=== PATIENT | female | born 1980 | race Caucasian/White ===

== ENCOUNTER 2017-10-10 12:22 | Inpatient (IN) | payer MEDICAID, OTHER ==
[~2017-10-10] VITALS: Ht 165.1 cm; Wt 61.6 kg
[2017-10-10] MEDS ORDERED: SODIUM CHLORIDE 0.9% 1,000 ML IVB ONE (12:42)
[2017-10-10] MEDS ORDERED: PANTOPRAZOLE 40 MG/10 ML VIAL IV STA (12:42)
[2017-10-10] MEDS ORDERED: ONDANSETRON HCL 4 MG/2 ML VIAL IV ONE (12:45)
[2017-10-10] MEDS ORDERED: MORPHINE SULF INJ 2 MG/ML SYRINGE 1ML IV ONE (12:45)
[2017-10-10 12:57] LABS: Basophils # (auto) 0.1 uL; Basophils % (auto) 0.4 % (0.0-2.0); Eosinophils # (auto) 0 uL; Mean Corpuscular Hgb Conc. 33.7 g/dL (32.0-36.0)
[2017-10-10 12:59] LABS: Hemoglobin 15.1 g/dL (12.2-16.2); Lymphocytes # (auto) 0.8 uL; Mean Corpuscular Hemoglobin 35.6 pg (28.0-32.0); Mean Corpuscular Volume 105.7 fL (80.0-100.0); Monocytes # (auto) 1.2 uL; Monocytes % (auto) 5.8 % (0.0-12.0); Neutrophils # (auto) 18.6 uL; Neutrophils % (auto) 89.8 % (37.0-80.0); Platelet Count (auto) 205 10^3/uL (140-450); Red Blood Cells 4.26 10^6/uL (4.0-5.20); Red Cell Distribution Width 14.4 % (11.8-14.3); White Blood Cell 20.7 10^3/uL (4.4-10.8)
[2017-10-10 13:13] LABS: INR 1.07 (0.9-1.15); Partial Thromboplastin Time 33.1 sec (23.78-33.04); Prothrombin Time 11.4 sec (9.27-12.13)
[2017-10-10 13:27] LABS: Albumin 4.5 g/dL (3.4-5.0); BUN/Creatinine Ratio 15.6; Bilirubin, Total 2.7 mg/dL (0.2-1.0); Calcium 9.5 mg/dL (8.5-10.1); Potassium 3.8 mmol/L (3.5-5.1); Total Protein 10.1 g/dL (6.4-8.2)
[2017-10-10 13:48] LABS: Urine Bacteria NONE SEEN /hpf (None Seen); Urine Blood 3+ /uL (Negative); Urine Hyaline Cast MANY /lpf (0 - 2); Urine Mucus FEW (None Seen); Urine Specific Gravity 1.029 (1.001-1.035); Urine WBC 3 /hpf (0 - 5)
[2017-10-10 13:58] LABS: Blood Alcohol < 3.0 mg/dL (0-5); Lipase 3625 U/L (73-393)
[2017-10-10] MEDS ORDERED: MORPHINE SULFATE 4 MG/ML SYR/VIAL IV ONE (15:00)
[2017-10-10] MEDS ORDERED: PANTOPRAZOLE 40 MG/10 ML VIAL IV ONE (16:30)
[2017-10-10] MEDS ORDERED: THIAMINE 100mg/ml INJ (200mg/2ml VIAL) IV ONE (16:30)
[2017-10-10] MEDS ORDERED: LEVOFLOXACIN 500MG 100 ML IV ONE (17:00)
[2017-10-10] MEDS: SODIUM CHLORIDE 0.9% 1,000 ML IV SCH (17:00)
[2017-10-10] MEDS ORDERED: FOLIC ACID 1 MG in D5W 5% 50 ML INJ ONE (17:00)
[2017-10-10 17:06] LABS: Alcohol, Urine < 3.0 mg/dL (0-5); Amphetamine Screen, Urine NEGATIVE (NEGATIVE); Barbiturate Scree,Urine NEGATIVE (NEGATIVE); Benzodiazephine Screen, Urine NEGATIVE (NEGATIVE); Cannabinoid Screen, Urine NEGATIVE (NEGATIVE); Cocaine Screen, Urine NEGATIVE (NEGATIVE); Opiate Scree,Urine NEGATIVE (NEGATIVE); Phencyclidine Screen, Urine NEGATIVE (NEGATIVE)
[2017-10-10] MEDS: ONDANSETRON HCL 4 MG/2 ML VIAL IV PRN (17:26)
[2017-10-10] MEDS: MORPHINE SULF INJ 2 MG/ML SYRINGE 1ML IV PRN ×2 (17:26→21:30)
[2017-10-10 18:25] LABS: Hepatitis B Surface Antigen Negative (Negative)
[2017-10-10 18:42] LABS: Hepatitis A Ab IgM Negative; Hepatitis B Core IgM Negative
[2017-10-10] MEDS: traMADol HCL 50 MG TAB PO PRN (19:07)
[2017-10-10 20:04] LABS: Hepatitis C Antibody Negative (Negative)
[2017-10-10 20:30] VITALS: BP 153/105
[2017-10-10 22:13] VITALS: BP_SYST 156; BP_SYST 168; BP_DIAS 105; BP_DIAS 98
[2017-10-11] MEDS: SODIUM CHLORIDE 0.9% 1,000 ML IV SCH ×2 (00:30→10:10)
[2017-10-11] MEDS: MORPHINE SULF INJ 2 MG/ML SYRINGE 1ML IV PRN ×5 (01:41→23:05)
[2017-10-11] MEDS ORDERED: MORPHINE SULF INJ 2 MG/ML SYRINGE 1ML IV ONE (02:15)
[2017-10-11 04:43] VITALS: BP_SYST 149; BP_SYST 150; BP_DIAS 107; BP_DIAS 99
[2017-10-11 06:54] LABS: Eosinophils # (auto) 0 uL; Eosinophils % (auto) 0.1 % (0.0-7.0); Monocytes # (auto) 0.9 uL
[2017-10-11 06:56] LABS: Basophils # (auto) 0.1 uL; Basophils % (auto) 0.3 % (0.0-2.0); Hemoglobin 13.5 g/dL (12.2-16.2); Lymphocytes # (auto) 0.7 uL; Lymphocytes % (auto) 3.7 % (10.0-50.0); Mean Corpuscular Hemoglobin 36.5 pg (28.0-32.0); Mean Corpuscular Hgb Conc. 34.8 g/dL (32.0-36.0); Monocytes % (auto) 4.9 % (0.0-12.0); Neutrophils # (auto) 16.5 uL; Platelet Count (auto) 121 10^3/uL (140-450); Red Blood Cells 3.71 10^6/uL (4.0-5.20); Red Cell Distribution Width 14.5 % (11.8-14.3); White Blood Cell 18.1 10^3/uL (4.4-10.8)
[2017-10-11 07:14] LABS: Albumin 3.3 g/dL (3.4-5.0); BUN/Creatinine Ratio 10.6; Bilirubin, Total 2.1 mg/dL (0.2-1.0); Calcium 8.9 mg/dL (8.5-10.1); Potassium 3.3 mmol/L (3.5-5.1); Total Protein 7.9 g/dL (6.4-8.2)
[2017-10-11 07:34] VITALS: BP 154/100
[2017-10-11] MEDS: FOLIC ACID 1 MG in D5W 5% 50 ML IV SCH ×2 (10:00→13:47)
[2017-10-11] MEDS ORDERED: LEVOFLOXACIN 500MG 100 ML IV SCH (10:00)
[2017-10-11] MEDS: THIAMINE 100mg/ml INJ (200mg/2ml VIAL) IV SCH (10:10)
[2017-10-11] MEDS: PANTOPRAZOLE 40 MG/10 ML VIAL IV SCH (10:12)
[2017-10-11] MEDS: traMADol HCL 50 MG TAB PO PRN (10:14)
[2017-10-11] MEDS: MULTIPLE VITAMIN TAB PO SCH (10:14)
[2017-10-11 11:49] VITALS: BP 154/109
[2017-10-11] MEDS ORDERED: SOD CHL 0.9%/ KCL 40MEQ 1,000 ML IV ONE (13:30)
[2017-10-11] MEDS ORDERED: IOHEXOL 300 MG/ML 100ML BOTTLE IJ ONE (14:13)
[2017-10-11 16:53] VITALS: BP 123/64
[2017-10-11] MEDS: LACTATED RINGER'S 1,000 ML IV SCH (20:40)
[2017-10-11 22:00] VITALS: BP 139/93
[2017-10-11] MEDS ORDERED: IBUPROFEN 600 MG TAB PO ONE (23:30)
[2017-10-12] MEDS: LACTATED RINGER'S 1,000 ML IV SCH ×6 (02:46→22:08)
[2017-10-12] MEDS: MORPHINE SULF INJ 2 MG/ML SYRINGE 1ML IV PRN ×6 (02:47→23:23)
[2017-10-12 05:38] VITALS: BP 120/58
[2017-10-12 07:32] VITALS: BP 116/82
[2017-10-12] MEDS: MULTIPLE VITAMIN TAB PO SCH (10:00)
[2017-10-12] MEDS: LEVOFLOXACIN 750MG 150 ML IV SCH (10:33)
[2017-10-12] MEDS: THIAMINE 100mg/ml INJ (200mg/2ml VIAL) IV SCH (10:33)
[2017-10-12] MEDS: PANTOPRAZOLE 40 MG/10 ML VIAL IV SCH (10:34)
[2017-10-12 12:04] VITALS: BP 120/87
[2017-10-12 13:42] VITALS: BP 126/78
[2017-10-12] MEDS: ONDANSETRON HCL 4 MG/2 ML VIAL IV PRN (15:30)
[2017-10-12 17:00] VITALS: BP 132/76
[2017-10-12 22:00] VITALS: BP 140/88
[2017-10-13] MEDS: MORPHINE SULF INJ 2 MG/ML SYRINGE 1ML IV PRN ×4 (03:27→19:59)
[2017-10-13 05:00] VITALS: BP 131/76
[2017-10-13] MEDS: LACTATED RINGER'S 1,000 ML IV SCH ×2 (05:19→20:00)
[2017-10-13 06:41] LABS: Basophils # (auto) 0 uL; Basophils % (auto) 0.3 % (0.0-2.0); Eosinophils # (auto) 0.2 uL; Hemoglobin 11.6 g/dL (12.2-16.2); Lymphocytes # (auto) 1.4 uL; Platelet Count (auto) 156 10^3/uL (140-450); White Blood Cell 8.5 10^3/uL (4.4-10.8)
[2017-10-13 06:45] LABS: Eosinophils % (auto) 1.8 % (0.0-7.0); Hematocrit 32.2 % (36.0-46.0); Lymphocytes % (auto) 15.9 % (10.0-50.0); Mean Corpuscular Hemoglobin 36.7 pg (28.0-32.0); Mean Corpuscular Hgb Conc. 35.9 g/dL (32.0-36.0); Mean Corpuscular Volume 102.1 fL (80.0-100.0); Monocytes % (auto) 11.4 % (0.0-12.0); Neutrophils % (auto) 70.6 % (37.0-80.0); Red Blood Cells 3.16 10^6/uL (4.0-5.20); Red Cell Distribution Width 14.2 % (11.8-14.3)
[2017-10-13 07:06] LABS: Albumin 2.4 g/dL (3.4-5.0); Bilirubin, Total 1.4 mg/dL (0.2-1.0); Calcium 8.7 mg/dL (8.5-10.1); Total Protein 6.5 g/dL (6.4-8.2)
[2017-10-13 07:23] LABS: Potassium 2.5 mmol/L (3.5-5.1)
[2017-10-13 08:05] VITALS: BP 136/85
[2017-10-13] MEDS: POTASSIUM CHL 20MEQ/100ML 100 ML IV SCH ×2 (08:15→12:37)
[2017-10-13] MEDS ORDERED: POTASSIUM CHL 20MEQ/100ML 100 ML IV SCH (08:15)
[2017-10-13 08:29] VITALS: BP 136/85
[2017-10-13] MEDS: THIAMINE 100mg/ml INJ (200mg/2ml VIAL) IV SCH (10:18)
[2017-10-13] MEDS: PANTOPRAZOLE 40 MG/10 ML VIAL IV SCH (10:18)
[2017-10-13] MEDS: MULTIPLE VITAMIN TAB PO SCH (10:18)
[2017-10-13] MEDS: POTASSIUM CHL 20 Meq TABLET PO SCH ×2 (10:18→22:37)
[2017-10-13] MEDS: LEVOFLOXACIN 750MG 150 ML IV SCH (10:51)
[2017-10-13 12:37] VITALS: BP 137/75
[2017-10-13 16:57] VITALS: BP 128/87
[2017-10-13 22:00] VITALS: BP 119/74
[2017-10-13] MEDS: traMADol HCL 50 MG TAB PO PRN (22:37)
[2017-10-14] MEDS: MORPHINE SULF INJ 2 MG/ML SYRINGE 1ML IV PRN ×6 (00:08→21:26)
[2017-10-14] MEDS: LACTATED RINGER'S 1,000 ML IV SCH ×4 (01:17→16:04)
[2017-10-14 05:00] VITALS: BP 111/66
[2017-10-14] MEDS: traMADol HCL 50 MG TAB PO PRN ×2 (06:35→16:11)
[2017-10-14 06:48] LABS: Mean Corpuscular Hemoglobin 36.7 pg (28.0-32.0); White Blood Cell 7.9 10^3/uL (4.4-10.8)
[2017-10-14 06:50] LABS: Hematocrit 30.5 % (36.0-46.0); Hemoglobin 10.8 g/dL (12.2-16.2); Mean Corpuscular Hgb Conc. 35.5 g/dL (32.0-36.0); Mean Corpuscular Volume 103.6 fL (80.0-100.0); Platelet Count (auto) 208 10^3/uL (140-450); Red Blood Cells 2.94 10^6/uL (4.0-5.20)
[2017-10-14 07:03] LABS: BUN/Creatinine Ratio 9.5; Calcium 8.2 mg/dL (8.5-10.1); Potassium 3.2 mmol/L (3.5-5.1)
[2017-10-14 07:04] LABS: Band Neutrophils % (manual) 0; Basophils % (manual) 0 (0.0-2.0); Blast Cells 0; Eosinophils % (manual) 0 (0-7); Metamyelocytes % 0; Myelocytes % 0; Promyelocytes % 0; Reactive Lymphocytes 0
[2017-10-14 07:57] LABS: Lymphocytes % (manual) 22 (10.0-50.0); Monocytes % (manual) 11 (0-12)
[2017-10-14 08:25] VITALS: BP 118/69
[2017-10-14] MEDS: PANTOPRAZOLE 40 MG/10 ML VIAL IV SCH (10:37)
[2017-10-14] MEDS: THIAMINE 100mg/ml INJ (200mg/2ml VIAL) IV SCH (10:37)
[2017-10-14] MEDS: LEVOFLOXACIN 750MG 150 ML IV SCH (10:37)
[2017-10-14] MEDS: MULTIPLE VITAMIN TAB PO SCH (10:38)
[2017-10-14] MEDS: POTASSIUM CHL 20 Meq TABLET PO SCH ×2 (10:39→21:27)
[2017-10-14 12:49] VITALS: BP 115/68
[2017-10-14 16:59] VITALS: BP 131/70
[2017-10-14 21:55] VITALS: BP 115/72
[2017-10-15] MEDS: traMADol HCL 50 MG TAB PO PRN ×3 (00:03→21:30)
[2017-10-15] MEDS: LACTATED RINGER'S 1,000 ML IV SCH ×4 (00:04→16:03)
[2017-10-15] MEDS: MORPHINE SULF INJ 2 MG/ML SYRINGE 1ML IV PRN ×6 (01:16→23:13)
[2017-10-15 05:37] VITALS: BP 121/84
[2017-10-15 06:06] LABS: Basophils # (auto) 0 uL; Monocytes # (auto) 1.1 uL; Neutrophils # (auto) 4.1 uL; Nucleated Red Blood Cells % 0.1 %; White Blood Cell 7.7 10^3/uL (4.4-10.8)
[2017-10-15 06:10] LABS: Basophils % (auto) 0.6 % (0.0-2.0); Eosinophils # (auto) 0.4 uL; Eosinophils % (auto) 4.9 % (0.0-7.0); Hematocrit 31.5 % (36.0-46.0); Lymphocytes # (auto) 2.1 uL; Lymphocytes % (auto) 26.7 % (10.0-50.0); Mean Corpuscular Hemoglobin 35.9 pg (28.0-32.0); Mean Corpuscular Hgb Conc. 34.8 g/dL (32.0-36.0); Monocytes % (auto) 14.3 % (0.0-12.0); Neutrophils % (auto) 53.5 % (37.0-80.0); Platelet Count (auto) 235 10^3/uL (140-450); Red Blood Cells 3.05 10^6/uL (4.0-5.20); Red Cell Distribution Width 14.5 % (11.8-14.3)
[2017-10-15 06:23] LABS: BUN/Creatinine Ratio 4.9; Calcium 8.1 mg/dL (8.5-10.1); Potassium 3.4 mmol/L (3.5-5.1)
[2017-10-15 07:53] VITALS: BP 118/79
[2017-10-15] MEDS: LEVOFLOXACIN 750MG 150 ML IV SCH (09:58)
[2017-10-15] MEDS: MULTIPLE VITAMIN TAB PO SCH (09:58)
[2017-10-15] MEDS: PANTOPRAZOLE 40 MG/10 ML VIAL IV SCH (09:59)
[2017-10-15] MEDS: THIAMINE 100mg/ml INJ (200mg/2ml VIAL) IV SCH (09:59)
[2017-10-15] MEDS: POTASSIUM CHL 20 Meq TABLET PO SCH ×2 (10:00→21:30)
[2017-10-15] MEDS: PANCREATIC ENZYMES 4200 UNIT CAP PO SCH ×2 (12:27→17:45)
[2017-10-15 13:00] VITALS: BP 132/73
[2017-10-15 17:00] VITALS: BP 146/92
[2017-10-15 20:00] VITALS: BP 127/79
[2017-10-15 22:00] VITALS: BP 127/79
[2017-10-16] MEDS: LACTATED RINGER'S 1,000 ML IV SCH ×4 (01:59→20:40)
[2017-10-16] MEDS: traMADol HCL 50 MG TAB PO PRN ×2 (02:00→18:29)
[2017-10-16] MEDS: MORPHINE SULF INJ 2 MG/ML SYRINGE 1ML IV PRN ×5 (03:40→21:14)
[2017-10-16 05:00] VITALS: BP 123/84
[2017-10-16] MEDS ORDERED: HYDR-4683 PO (06:39)
[2017-10-16 06:48] LABS: Basophils # (auto) 0.1 uL; Basophils % (auto) 1.2 % (0.0-2.0); Eosinophils # (auto) 0.3 uL; Lymphocytes # (auto) 2.2 uL; Monocytes # (auto) 1.1 uL; Monocytes % (auto) 13.8 % (0.0-12.0); Red Blood Cells 3.12 10^6/uL (4.0-5.20)
[2017-10-16 06:51] LABS: Eosinophils % (auto) 3.6 % (0.0-7.0); Hematocrit 32.5 % (36.0-46.0); Hemoglobin 11.3 g/dL (12.2-16.2); Lymphocytes % (auto) 28.3 % (10.0-50.0); Mean Corpuscular Hemoglobin 36.2 pg (28.0-32.0); Mean Corpuscular Hgb Conc. 34.8 g/dL (32.0-36.0); Neutrophils # (auto) 4.2 uL; Neutrophils % (auto) 53.1 % (37.0-80.0); Nucleated Red Blood Cells % 0.1 %; Platelet Count (auto) 263 10^3/uL (140-450); Red Cell Distribution Width 14.2 % (11.8-14.3)
[2017-10-16 06:57] LABS: BUN/Creatinine Ratio 8.6; Calcium 8.6 mg/dL (8.5-10.1); Potassium 3.8 mmol/L (3.5-5.1)
[2017-10-16] MEDS: PANCREATIC ENZYMES 4200 UNIT CAP PO SCH ×3 (08:22→17:26)
[2017-10-16 09:00] VITALS: BP 103/64
[2017-10-16] MEDS: POTASSIUM CHL 20 Meq TABLET PO SCH ×2 (10:20→21:14)
[2017-10-16] MEDS: LEVOFLOXACIN 750MG 150 ML IV SCH (10:20)
[2017-10-16] MEDS: THIAMINE 100mg/ml INJ (200mg/2ml VIAL) IV SCH (10:20)
[2017-10-16] MEDS: MULTIPLE VITAMIN TAB PO SCH (10:21)
[2017-10-16] MEDS: PANTOPRAZOLE 40 MG/10 ML VIAL IV SCH (10:21)
[2017-10-16 12:36] VITALS: BP 98/66
[2017-10-16 16:52] VITALS: BP 110/65
[2017-10-16 22:00] VITALS: BP 134/78
[2017-10-17] MEDS: traMADol HCL 50 MG TAB PO PRN (00:27)
[2017-10-17] MEDS: MORPHINE SULF INJ 2 MG/ML SYRINGE 1ML IV PRN ×2 (01:32→08:53)
[2017-10-17] MEDS: LACTATED RINGER'S 1,000 ML IV SCH ×2 (01:32→10:00)
[2017-10-17 05:00] VITALS: BP 127/62
[2017-10-17 05:42] LABS: Eosinophils # (auto) 0.3 uL; Mean Corpuscular Hemoglobin 36.1 pg (28.0-32.0); Neutrophils # (auto) 5.7 uL; Nucleated Red Blood Cells % 0.1 %; Red Cell Distribution Width 14.4 % (11.8-14.3)
[2017-10-17 05:44] LABS: Basophils # (auto) 0.1 uL; Basophils % (auto) 0.5 % (0.0-2.0); Eosinophils % (auto) 3.1 % (0.0-7.0); Hematocrit 34.9 % (36.0-46.0); Hemoglobin 12.1 g/dL (12.2-16.2); Lymphocytes % (auto) 21.5 % (10.0-50.0); Mean Corpuscular Hgb Conc. 34.7 g/dL (32.0-36.0); Monocytes # (auto) 1.4 uL; Monocytes % (auto) 14.9 % (0.0-12.0); Platelet Count (auto) 324 10^3/uL (140-450); Red Blood Cells 3.36 10^6/uL (4.0-5.20); White Blood Cell 9.5 10^3/uL (4.4-10.8)
[2017-10-17 06:00] LABS: Albumin 2.5 g/dL (3.4-5.0); BUN/Creatinine Ratio 7.8; Bilirubin, Direct 0.3 mg/dL (0-0.2); Bilirubin, Total 0.4 mg/dL (0.2-1.0); Calcium 8.7 mg/dL (8.5-10.1); Total Protein 6.5 g/dL (6.4-8.2)
[2017-10-17] MEDS: PANCREATIC ENZYMES 4200 UNIT CAP PO SCH ×2 (08:11→12:00)
[2017-10-17 09:00] VITALS: BP 120/76
[2017-10-17 09:19] VITALS: BP 120/76
[2017-10-17] MEDS: LEVOFLOXACIN 750MG 150 ML IV SCH (10:00)
[2017-10-17] MEDS: PANTOPRAZOLE 40 MG/10 ML VIAL IV SCH (10:00)
[2017-10-17] MEDS: THIAMINE 100mg/ml INJ (200mg/2ml VIAL) IV SCH (10:00)
[2017-10-17] MEDS: POTASSIUM CHL 20 Meq TABLET PO SCH (10:00)
[2017-10-17] MEDS: MULTIPLE VITAMIN TAB PO SCH (10:00)
[2017-10-17 13:00] VITALS: BP 108/52
== END 2017-10-17 13:27 | disposition home or self-care (01) | DRG 282 ==
LOC: EDBD 12:22 → ER 12:22 → OVERFLOW 12:23 → WEST WING 20:00
PROVIDERS: ADMIT Internal Medicine; ATTEND Internal Medicine
DX: K85.90 Acute pancreatitis without necrosis or infection, unspecified (principal); E43 Unspecified severe protein-calorie malnutrition; E87.2 Acidosis; R65.10 Systemic inflammatory response syndrome (SIRS) of non-infectious origin without acute organ dysfunction; K72.90 Hepatic failure, unspecified without coma; E87.1 Hypo-osmolality and hyponatremia; E87.6 Hypokalemia; D72.829 Elevated white blood cell count, unspecified; F19.10 Other psychoactive substance abuse, uncomplicated; F17.210 Nicotine dependence, cigarettes, uncomplicated; I10 Essential (primary) hypertension; Z88.1 Allergy status to other antibiotic agents; Z88.5 Allergy status to narcotic agent; Z68.22 Body mass index [BMI] 22.0-22.9, adult
CPT/HCPCS: 36415; 74177; 76705; 80048; 80053; 80074; 80076; 80307; 80320; 81001; 83690; 84702; 85007; 85025; 85027; 85610; 85730; 87040; 94761; 96374; 96375; 96376; C9113; J1956; J2405; J3480; J7060

== ENCOUNTER 2018-10-25 20:03 | Inpatient (IN) | payer MEDICAID ==
[~2018-10-25] VITALS: Ht 160 cm; Wt 57.5 kg
[2018-10-25 21:30] LABS: Basophils # (auto) 0 uL; Basophils % (auto) 0.2 % (0.0-2.0); Eosinophils # (auto) 0 uL; Hematocrit 41.6 % (36.0-46.0); Hemoglobin 13.9 g/dL (12.2-16.2); Lymphocytes # (auto) 0.8 uL; Lymphocytes % (auto) 4.4 % (10.0-50.0); Mean Corpuscular Hemoglobin 34.1 pg (28.0-32.0); Mean Corpuscular Hgb Conc. 33.5 g/dL (32.0-36.0); Mean Corpuscular Volume 101.7 fL (80.0-100.0); Monocytes # (auto) 1.1 uL; Neutrophils # (auto) 16.2 uL; Neutrophils % (auto) 89.4 % (37.0-80.0); Platelet Count (auto) 182 10^3/uL (140-450); Red Blood Cells 4.09 10^6/uL (4.0-5.20); Red Cell Distribution Width 15.3 % (11.8-14.3); White Blood Cell 18.1 10^3/uL (4.4-10.8)
[2018-10-25 21:47] LABS: Albumin 4.9 g/dL (3.4-5.0); BUN/Creatinine Ratio 12.7; Calcium 10.3 mg/dL (8.5-10.1); Potassium 3.6 mmol/L (3.5-5.1)
[2018-10-25 21:50] LABS: Bilirubin, Total 2.7 mg/dL (0.2-1.0)
[2018-10-26] MEDS ORDERED: SODIUM CHLORIDE 0.9% 1,000 ML IVB ONE (04:11)
[2018-10-26] MEDS ORDERED: MORPHINE SULFATE 4 MG/ML SYR/VIAL IV ONE (04:15)
[2018-10-26] MEDS ORDERED: ONDANSETRON HCL 4 MG/2 ML VIAL IV ONE (04:15)
[2018-10-26 05:10] LABS: Amylase 462 U/L (25-115)
[2018-10-26 05:19] LABS: Lipase 3674 U/L (73-393)
[2018-10-26 07:53] LABS: Urine Bacteria NONE SEEN /hpf (None Seen); Urine Blood 3+ /uL (Negative); Urine Hyaline Cast MANY /lpf (0 - 2); Urine Mucus FEW (None Seen); Urine Specific Gravity 1.022 (1.001-1.035); Urine WBC 188 /hpf (0 - 5)
[2018-10-26] MEDS ORDERED: SODIUM CHLORIDE 0.9% 1,000 ML IV SCH (08:17)
[2018-10-26] MEDS ORDERED: NITROGLYCERIN 0.4 MG SL TAB SL PRN (08:30)
[2018-10-26] MEDS ORDERED: MORPHINE SULF INJ 2 MG/ML SYRINGE 1ML IV PRN (08:30)
[2018-10-26 09:36] LABS: Alcohol, Urine < 3.0 mg/dL (0-5); Amphetamine Screen, Urine NEGATIVE (NEGATIVE); Barbiturate Scree,Urine NEGATIVE (NEGATIVE); Benzodiazephine Screen, Urine NEGATIVE (NEGATIVE); Cannabinoid Screen, Urine NEGATIVE (NEGATIVE); Cocaine Screen, Urine NEGATIVE (NEGATIVE); Opiate Scree,Urine POSITIVE (NEGATIVE); Phencyclidine Screen, Urine NEGATIVE (NEGATIVE)
[2018-10-26] MEDS: cefTRIAXone 1GM/50ML D5W 50 ML IV SCH (09:41)
[2018-10-26] MEDS: HYDROmorphone HCL 2 MG/ML VL IV PRN ×4 (09:41→21:51)
[2018-10-26] MEDS: ONDANSETRON HCL 4 MG/2 ML VIAL IV PRN (09:41)
[2018-10-26] MEDS: FAMOTIDINE (10MG/ML) 2ML VL IV SCH ×2 (09:42→21:45)
--- NOTE | 2018-10-26 10:15 | NUR ---
MS admit from ER MIKHAIL BEAR admitted to MS. Patient oriented to Tahira Gipson, primary RN, unit, room, bed, and unit policies regarding patient care and visiting hours. Pt. awake and alert x4, resting in bed. No S/S of distress or SOB, no pain noted or reported at this time. Respirations are even and unlabored on RA. Updated on POC and instructed to call for assistance as needed, pt. verbalized understanding. Bed locked in lowest position, side rails up x2, call light within reach. Will continue to monitor q1hr and PRN.
[2018-10-26 13:00] VITALS: BP 143/94
[2018-10-26] MEDS: FOLIC ACID 1 MG, MULTIPLE VITAMIN 10 ML, MAGNESIUM SULF SDV 50% 8 MEQ, THIAMINE INJ 100... INJ SCH ×5 (13:38)
--- NOTE | 2018-10-26 13:42 | NUR ---
Received orders for IV hydration fluids Pt. has only one working peripheral IV, advised pt. that MD ordered 2 different IV hydration fluids and that we need to place a 2nd IV to run both at the same time since the fluids can not run on the same line together. Pt. refused another IV placement at this time, educated on the need for fluids, pt. continues to refuse.
[2018-10-26 17:00] VITALS: BP 127/84
--- NOTE | 2018-10-26 17:30 | NUR ---
IV removal IV DC'd with clean sterile technique, catheter fully intact. Pressure dressing applied to site. Patient tolerated well. NOTE: [IV was infiltrated]
--- NOTE | 2018-10-26 17:40 | NUR ---
IV insertion IV access obtained, via clean sterile technique by inserting 22 gauge catheter at right forearm after 1 attempt. IV secured properly. No trauma to site. Patient tolerated well. Addendum: 10/26/18 at 1801 by Tahira Gipson RN Correction left forearm
--- NOTE | 2018-10-26 19:35 | NUR ---
OPENING NOTE REPORT RECEIVED FROM DAY SHIFT RN PATIENT IS SLEEPING, VISIBLE RISE AND FALL OF CHEST NOTED. NO S/S OF DISTRESS. WILL COME BACK AT LATER TIME TO DO PHYSICAL ASSESSMENT. CALL LIGHT AND PERSONAL BELONGINGS WITHIN REACH.
[2018-10-26 22:00] VITALS: BP 132/91
[2018-10-26] MEDS: LACTATED RINGER'S 1,000 ML IV SCH ×2 (23:42→23:43)
[2018-10-27] MEDS: HYDROmorphone HCL 2 MG/ML VL IV PRN ×7 (01:28→23:04)
--- NOTE | 2018-10-27 02:00 | NUR ---
PAGED HOSPITALIST RE: PATIENT C/O ITCHING AND IS REQUESTING BENADRYL NO ORDERS AT THIS TIME WILL WAIT FOR HOSPITALIST TO CALL BACK
[2018-10-27] MEDS: LACTATED RINGER'S 1,000 ML IV SCH ×4 (04:41→20:03)
[2018-10-27 05:00] VITALS: BP 121/80
--- NOTE | 2018-10-27 05:00 | NUR ---
REPAGED HOSPITALIST REGARDING PATIENT C/O ITCHING AND WANTS BENADRYL WILL WAIT FOR CALL BACK
--- NOTE | 2018-10-27 05:13 | NUR ---
RECEIVED NEW ORDER VIA TELEPHONE. ORDER READ BACK AND VERIFIED. WILL CARRY OUT ORDER
[2018-10-27] MEDS: diphenhdrAMINE HCL 25 MG CAP PO PRN ×4 (05:28→23:04)
[2018-10-27 07:03] LABS: Basophils # (auto) 0 uL; Eosinophils # (auto) 0.1 uL; Hemoglobin 11.3 g/dL (12.2-16.2); Lymphocytes # (auto) 1.2 uL; Lymphocytes % (auto) 12.3 % (10.0-50.0); Mean Corpuscular Hemoglobin 34.3 pg (28.0-32.0); Neutrophils # (auto) 7.3 uL; White Blood Cell 9.5 10^3/uL (4.4-10.8)
[2018-10-27 07:06] LABS: Basophils % (auto) 0.3 % (0.0-2.0); Eosinophils % (auto) 1.4 % (0.0-7.0); Hematocrit 32.8 % (36.0-46.0); Mean Corpuscular Hgb Conc. 34.4 g/dL (32.0-36.0); Mean Corpuscular Volume 99.8 fL (80.0-100.0); Monocytes # (auto) 0.8 uL; Monocytes % (auto) 8.9 % (0.0-12.0); Neutrophils % (auto) 77.1 % (37.0-80.0); Nucleated Red Blood Cells % 0.1 %; Platelet Count (auto) 121 10^3/uL (140-450); Red Blood Cells 3.29 10^6/uL (4.0-5.20); Red Cell Distribution Width 14.9 % (11.8-14.3)
--- NOTE | 2018-10-27 07:34 | NUR ---
CLOSING PATIENT IS SLEEPING. NO S/S OF DISTRESS NOTED. REPORT ENDORSED TO DAY SHIFT RN
[2018-10-27 07:47] LABS: Potassium 2.8 mmol/L (3.5-5.1)
--- NOTE | 2018-10-27 07:55 | NUR ---
Patient has itching. Benadryl not due at this time.
[2018-10-27 08:00] VITALS: BP 131/78
[2018-10-27] MEDS: cefTRIAXone 1GM/50ML D5W 50 ML IV SCH (08:37)
--- NOTE | 2018-10-27 08:37 | NUR ---
Patient stated her stomach and back pain level at 9/10 at this time. Dilaudid Inj 0.5 mg given for severe pain as ordered.
--- NOTE | 2018-10-27 09:21 | NUR ---
Paged the PICC Line RN for Midline Insertion.
[2018-10-27] MEDS: FAMOTIDINE (10MG/ML) 2ML VL IV SCH ×2 (10:14→21:41)
--- NOTE | 2018-10-27 10:15 | NUR ---
Benadryl Cap given for itching as ordered with small sips of water.
--- NOTE | 2018-10-27 11:07 | NUR ---
Dr. Riojas came over. made aware patient's K = 2.8 critically low, patient on NPO except medications.
[2018-10-27] MEDS ORDERED: POTASSIUM CHLORIDE 40 MEQ, LIDOCAINE 1% (LOCAL ANESTH.) 4 ML in SODIUM CHL 0.9% 100 ML IV ONE (11:30)
--- NOTE | 2018-10-27 11:38 | NUR ---
Dr. Riojas made aware patient asked to change Dilaudid Inj to Morphine Sulf Inj. Patient stated Dilaudid may be causing her itching.
--- NOTE | 2018-10-27 11:40 | NUR ---
Called Pharmacy for Potassium Chloride w/ Lidocaine and banana bag.
[2018-10-27 11:48] LABS: Amylase 46 U/L (25-115); Lipase 240 U/L (73-393)
[2018-10-27 12:00] VITALS: BP 135/80
--- NOTE | 2018-10-27 12:00 | NUR ---
Patient complained she could not sleep or rest properly because patient on Bed A keeps moaning, yelling. Charge Nurse Ayo made aware.
--- NOTE | 2018-10-27 12:00 | NUR ---
Patient said she already gave urine specimen to the straw baler nurse.
--- NOTE | 2018-10-27 12:03 | NUR ---
Lactated Ringers drip held at this time. Potassium Chloride drip running, will be followed with Banana bag. Patient has only one IV access, waiting for Midline Insertion, PICC Line LOTUS Núñez is aware.
--- NOTE | 2018-10-27 12:30 | NUR ---
Patient transferred via bed from Room 286B to Room 296B. PICC Line LOTUS Núñez is aware. Patient for Midline insertion.
--- NOTE | 2018-10-27 14:14 | NUR ---
Midline Placement: Patient educated on need for midline placement. All risks and benefits explained and all questions and concerns addresses prior to procedure. 4Fr 20cm midline inserted via right basilic vein using Ultrasound. Sterile technique utilized. Blood return obtained from single lumen and flushed easily with NS using proper technique. Midline secured with saline lock; biodisc and occlusive dressing applied. Primary RN notified. Midline lot #[id number].
[2018-10-27] MEDS: FOLIC ACID 1 MG, MULTIPLE VITAMIN 10 ML, MAGNESIUM SULF SDV 50% 8 MEQ, THIAMINE INJ 100... INJ SCH ×5 (14:50)
--- NOTE | 2018-10-27 15:15 | NUR ---
Lactated Ringers drip restarted.
--- NOTE | 2018-10-27 16:52 | NUR ---
Patient stated her stomach and back pain level at 10/10 at this time, patient is itching. Dilaudid Inj 0.5 mg given for severe pain, Benadryl cap PO with sips of water given for itching.
[2018-10-27 17:00] VITALS: BP 138/77
--- NOTE | 2018-10-27 19:45 | NUR ---
OPENING NOTE REPORT RECEIVED FROM DAY SHIFT RN PATIENT IS A/OX4 RESTING IN BED. PATIENT C/O 11/28 PAIN TO ABDOMEN AND IS REQUESTING DILAUDID. WILL MEDICATE ORDERED. PHYSICAL ASSESSMENT DONE-SEE INTERVENTIONS. NEW MIDLINE TO JAKOB PLACED TODAY 10/27/18. NO S/S OF DISTRESS NOTED. POC DISCUSSED AND ALL QUESTIONS ANSWERED. WILL MONITOR THROUGHOUT SHIFT, CALL LIGHT WITHIN REACH.
[2018-10-27 22:00] VITALS: BP 114/79
--- NOTE | 2018-10-27 23:15 | NUR ---
RECEIVED CALL FROM LAB CRITICAL POTASSIUM OF 2.5 WILL PAGE JAVA TECH LEAD HOSPITALIST
--- NOTE | 2018-10-27 23:21 | NUR ---
PAGED HOSPITALIST RE:CRITICAL K OF 2.5 AWAITING CALL BACK
--- NOTE | 2018-10-27 23:29 | NUR ---
RECEIVED CALL BACK FROM NEW ORDER FOR 40 MEQ K RIDER X2 DOSES, TOTAL OF 80 MEQ. LABS FOR MAG AND POTASSIUM ONE HOUR AFTER BOTH K RIDERS HAVE BEEN GIVEN. ORDERS READ BACK AND VERIFIED. WILL CARRY OUT ORDER
[2018-10-27] MEDS ORDERED: POTASSIUM CHL 20MEQ/100ML 100 ML IV SCH ×2 (23:45)
--- NOTE | 2018-10-28 00:01 | NUR ---
SPOKE WITH TO CLARIFY ORDER UNABLE TO INPUT 40 MEQ K RIDER BAG X2 DOSES. MD MADE AWARE OF THAT. NEW ORDER FOR TOTAL OF 60MEQ, WITH 3 BAGS OF 20 MEQ K RIDER VERBAL ORDER FOR POTASSIUM AND MAGNESIUM REDRAW ONE HOUR AFTER LAST BAG IS DONE ORDERS READ BACK AND VERIFIED. WILL PLACE NEW ORDER AND CANCEL OLD ORDER
[2018-10-28] MEDS: POTASSIUM CHL 20MEQ/100ML 100 ML IV SCH ×3 (00:14→04:13)
[2018-10-28] MEDS: HYDROmorphone HCL 2 MG/ML VL IV PRN ×7 (02:06→23:38)
[2018-10-28] MEDS: LACTATED RINGER'S 1,000 ML IV SCH ×2 (04:00→10:08)
[2018-10-28] MEDS: diphenhdrAMINE HCL 25 MG CAP PO PRN (05:09)
[2018-10-28 05:55] VITALS: BP 116/71
--- NOTE | 2018-10-28 06:30 | NUR ---
LAST BAG OF K RIDER COMPLETED WILL ADD LAB DRAW FOR POTASSIUM AND MAGNESIUM FOR ONE HOUR FROM NOW PER DR.NORONHA TRINH
--- NOTE | 2018-10-28 07:02 | NUR ---
CLOSING NOTE PATIENT RESTING IN BED. NO S/S OF DISTRESS. CALL LIGHT WITHIN REACH WILL ENDORSE CARE TO AM SHIFT RN
[2018-10-28] MEDS: FAMOTIDINE (10MG/ML) 2ML VL IV SCH ×2 (09:45→21:40)
[2018-10-28] MEDS: cefTRIAXone 1GM/50ML D5W 50 ML IV SCH (09:45)
--- NOTE | 2018-10-28 09:45 | NUR ---
Patient stated her stomach.back pain level at 10/10 at this time. Dilaudid Inj given for severe pain as ordered.
[2018-10-28 12:31] LABS: Magnesium 1.7 mg/dL (1.6-2.6)
--- NOTE | 2018-10-28 12:40 | NUR ---
Patient stated her stomach, back pain level at 9/10 at this time. Dilaudid Inj given for severe pain as ordered.
[2018-10-28] MEDS: FOLIC ACID 1 MG, MULTIPLE VITAMIN 10 ML, MAGNESIUM SULF SDV 50% 8 MEQ, THIAMINE INJ 100... INJ SCH ×5 (12:45)
--- NOTE | 2018-10-28 14:00 | NUR ---
Dr. Goldstein came over to see the patient. MD ordered patient can have tea, keep patient NPO except medications.
--- NOTE | 2018-10-28 16:17 | NUR ---
Patient stated her stomach and back pain level at 8/10 at this time. Dilaudid Inj given for severe pain as ordered.
[2018-10-28] MEDS: MAGNESIUM SULFATE 1GM/100ML 100 ML IV SCH ×2 (16:18→17:05)
[2018-10-28 17:00] VITALS: BP 121/89
--- NOTE | 2018-10-28 17:00 | NUR ---
Laboratory called for K = 2.8 *L. Paged Dr. Goldstein. cannot be paged anymore at 5:00 pm. Paged Hospitalist cisco consultant.
--- NOTE | 2018-10-28 17:20 | NUR ---
Dr. Smith called back. made aware of K = 2.8*L, patient on NPO. Dr. Smith ordered to discontinue the LR, ordered Potassium K Darrian, NS Potassium 40 MEQ.
[2018-10-28] MEDS ORDERED: POTASSIUM CHLORIDE 20 MEQ, LIDOCAINE 1% (LOCAL ANESTH.) 2 ML in SODIUM CHL 0.9% 100 ML IV ONE (17:30)
[2018-10-28] MEDS: SOD CHL 0.9%/ KCL 40MEQ 1,000 ML IV SCH (18:44)
[2018-10-28 21:45] VITALS: BP 109/66
[2018-10-29] MEDS: HYDROmorphone HCL 2 MG/ML VL IV PRN ×6 (02:40→23:21)
[2018-10-29] MEDS: SOD CHL 0.9%/ KCL 40MEQ 1,000 ML IV SCH ×3 (04:51→23:30)
[2018-10-29 04:57] VITALS: BP 108/73
[2018-10-29 08:00] VITALS: BP 123/81
--- NOTE | 2018-10-29 08:06 | NUR ---
Jennifer Orta came over to see the patient. ordered Clear Liquid Diet.
[2018-10-29] MEDS: FAMOTIDINE (10MG/ML) 2ML VL IV SCH (08:57)
[2018-10-29] MEDS: cefTRIAXone 1GM/50ML D5W 50 ML IV SCH (08:57)
--- NOTE | 2018-10-29 09:14 | NUR ---
Patient stated her stomach and back pain level at 7 to 9/10 at this time. Dilaudid Inj 0.5 mg given for pain as ordered.
[2018-10-29 09:34] LABS: Potassium 2.6 mmol/L (3.5-5.1)
[2018-10-29] MEDS: FAMOTIDINE 20 MG TAB PO SCH ×2 (10:00→20:18)
[2018-10-29] MEDS ORDERED: MORPHINE SULF INJ 2 MG/ML SYRINGE 1ML IV PRN (10:00)
[2018-10-29] MEDS: THIAMINE HCL 100 MG TAB PO SCH (10:18)
[2018-10-29] MEDS: FOLIC ACID 1 MG TAB PO SCH (10:18)
[2018-10-29 12:00] VITALS: BP 118/75
--- NOTE | 2018-10-29 12:29 | NUR ---
Patient her stomach and back pain level at 8/10 at this time. Dilaudid Inj 0.5 mg given for pain as ordered. Addendum: 10/29/18 at 1231 by Mague Everett RN Patient stated
[2018-10-29 15:49] LABS: Potassium 3.4 mmol/L (3.5-5.1)
[2018-10-29 15:54] LABS: Magnesium 1.7 mg/dL (1.6-2.6)
--- NOTE | 2018-10-29 15:58 | NUR ---
Patient stated her stomach and back pain level at 7/10 at this time. Dilaudid Inj 0.5 mg given for pain.
[2018-10-29 17:00] VITALS: BP 129/87
[2018-10-29 21:43] VITALS: BP 116/54
[2018-10-30] MEDS: HYDROmorphone HCL 2 MG/ML VL IV PRN ×5 (03:20→20:36)
[2018-10-30 04:42] VITALS: BP 114/66
[2018-10-30 08:00] VITALS: BP 119/80
--- NOTE | 2018-10-30 08:00 | NUR ---
IV line on the left wrist removed, IV catheter intact, pressure dressing applied.
[2018-10-30] MEDS: cefTRIAXone 1GM/50ML D5W 50 ML IV SCH (08:05)
--- NOTE | 2018-10-30 08:21 | NUR ---
Patient stated her stomach and back pain level at 5 to 6/10 at this time. Dilaudid Inj 0.5 mg given for pain as ordered.
--- NOTE | 2018-10-30 09:50 | NUR ---
Dr. Lopez at bedside. ordered Full Liquid Diet for dinner, Nicotine patch, Laboratory for Potassium level.
[2018-10-30] MEDS ORDERED: NICOTINE 14 MG/24HR TOPICAL PATCH TD SCH (10:00)
[2018-10-30] MEDS ORDERED: POTASSIUM CHL 10 Meq TABLET PO ONE (10:00)
--- NOTE | 2018-10-30 10:01 | NUR ---
Patient back to bed from the bathroom. Patient is ambulatory.
[2018-10-30] MEDS: SOD CHL 0.9%/ KCL 40MEQ 1,000 ML IV SCH ×2 (10:22→17:46)
[2018-10-30] MEDS: FOLIC ACID 1 MG TAB PO SCH (10:22)
[2018-10-30] MEDS: THIAMINE HCL 100 MG TAB PO SCH (10:22)
[2018-10-30] MEDS: FAMOTIDINE 20 MG TAB PO SCH ×2 (10:22→20:37)
--- NOTE | 2018-10-30 10:30 | NUR ---
Explained to patient she has Nicotine patch on her left outer upper arm, if she wants to go downstairs to smoke, she will have to sign the AMA form to smoke off unit, will remove/discontinue her Nicotine patch order.
--- NOTE | 2018-10-30 11:00 | NUR ---
assessment Patient has no post discharge needs identified. Addendum: 11/03/18 at 1735 by Lata YANG Amended: Links added.
[2018-10-30 12:00] VITALS: BP 112/70
--- NOTE | 2018-10-30 12:34 | NUR ---
Patient stated her pain level at 7/10 at this time. Dilaudid Inj 0.5 mg given for pain as ordered.
--- NOTE | 2018-10-30 15:04 | NUR ---
Patient wants to smoke downstairs. Explained to patient she has Nicotine patch. Patient stated she has problems with her boyfriend, she really needs top smoke. Removed the Nicotine patch on the left outer upper arm. Explained the risks and benefits, patient still insisted to smoke. Patient signed the AMA form to smoke.
--- NOTE | 2018-10-30 15:04 | NUR ---
Explained to patient she can smoke downstairs, be off unit no beyond 30 minutes, if she leaves the hospital premises with her midline intact, will be called. Patent verbalized understanding.
--- NOTE | 2018-10-30 15:08 | NUR ---
Paged Dr. Lopez.
--- NOTE | 2018-10-30 15:10 | NUR ---
Nutrition Assessment Notes Please see attached link for complete assessment Est. Needs BW 58 [id number] kcal (25-30 kcal/kgBW), 58-69 gms pro (1.0-1.2 gms/kgBW). Will continue to monitor pertinent labs and reassess nutrient need prn Addendum: 10/30/18 at [address] Amended: Links added.
--- NOTE | 2018-10-30 15:12 | NUR ---
Dr. Lopez called back. made aware patient insisted of smoking downstairs, signed the AMA form to smoke off unit. Dr. Lopez ordered to discontinue the Nicotine patch.
[2018-10-30 17:00] VITALS: BP 116/76
[2018-10-30 22:00] VITALS: BP 107/83
[2018-10-30] MEDS: LORazepam 2MG/ML-1ML VIAL IV PRN (22:59)
--- NOTE | 2018-10-30 23:29 | NUR ---
MIKHAIL BEAR states they want to leave the floor Against Medical Advice (AMA) to go outside and smoke. Patient encouraged to stay on floor and not smoke. Dr YANCEY notified of patient's wishes. Patient advised of the risks and benefits of leaving AMA. Patient verbalized understanding and signed required AMA form. Patient leaving floor to go down and smoke. Awaiting patient return to floor.
[2018-10-31] MEDS: HYDROmorphone HCL 2 MG/ML VL IV PRN ×5 (00:36→21:32)
--- NOTE | 2018-10-31 04:00 | NUR ---
WENT TO PATIENT ROOM FOUND IV PUMP BEEPING WITH CATHETER COMPLETELY OFF. PATIENT HAVE PULLED OF IV ACCESS. PATIENT ASLEEP. CATHETER TIP STILL INTACT.
[2018-10-31 05:00] VITALS: BP 100/68
[2018-10-31] MEDS: SOD CHL 0.9%/ KCL 40MEQ 1,000 ML IV SCH ×2 (06:26→17:28)
[2018-10-31 06:40] LABS: Basophils # (auto) 0 uL; Basophils % (auto) 0.4 % (0.0-2.0); Eosinophils # (auto) 0.2 uL; Eosinophils % (auto) 4.1 % (0.0-7.0); Hematocrit 27.5 % (36.0-46.0); Hemoglobin 9.5 g/dL (12.2-16.2); Lymphocytes # (auto) 1.6 uL; Lymphocytes % (auto) 27.4 % (10.0-50.0); Mean Corpuscular Hemoglobin 35.1 pg (28.0-32.0); Mean Corpuscular Hgb Conc. 34.4 g/dL (32.0-36.0); Mean Corpuscular Volume 101.9 fL (80.0-100.0); Monocytes % (auto) 16.2 % (0.0-12.0); Neutrophils # (auto) 3.1 uL; Neutrophils % (auto) 51.9 % (37.0-80.0); Platelet Count (auto) 171 10^3/uL (140-450); Red Cell Distribution Width 15.6 % (11.8-14.3); White Blood Cell 5.9 10^3/uL (4.4-10.8)
[2018-10-31 06:52] LABS: Amylase 33 U/L (25-115); Anion Gap 10 (5-15); BUN/Creatinine Ratio 2.4; Blood Urea Nitrogen < 1 mg/dL (7-18); Calcium 8.4 mg/dL (8.5-10.1); Carbon Dioxide 26 mmol/L (21-32); Chloride 105 mmol/L (98-107); GFR African American 226 mL/min; GFR Non-African American 187 mL/min; Glucose 135 mg/dL (74-106); Lipase 80 U/L (73-393); Potassium 3.5 mmol/L (3.5-5.1); Sodium 141 mmol/L (136-145)
[2018-10-31 08:00] VITALS: BP 106/70
[2018-10-31] MEDS: cefTRIAXone 1GM/50ML D5W 50 ML IV SCH (09:12)
[2018-10-31] MEDS: THIAMINE HCL 100 MG TAB PO SCH (09:12)
[2018-10-31] MEDS: FOLIC ACID 1 MG TAB PO SCH (09:13)
[2018-10-31] MEDS: FAMOTIDINE 20 MG TAB PO SCH ×2 (09:13→21:23)
--- NOTE | 2018-10-31 09:15 | NUR ---
PASSED MORNING MEDICATIONS. PT TOLERATED WELL. PT DENIES PAIN AT MOMENT. EFFORTLESS BREATHING ON ROOM AIR. IV PATENT AND INFUSING WELL TO RFA#22. PT IS MINIMALLY TO MODERATE COOPERATION WITH CARE. DENIES ANY NEEDS AT MOMENT. BED LOCKED AND IN LOWEST POSITION, CALL LIGHT WITHIN REACH. WILL CONTINUE TO MONITOR.
[2018-10-31 12:00] VITALS: BP 116/75
[2018-10-31 17:00] VITALS: BP 144/88
[2018-10-31 22:00] VITALS: BP 124/87
[2018-10-31] MEDS: LORazepam 2MG/ML-1ML VIAL IV PRN (23:15)
[2018-11-01] MEDS: HYDROmorphone HCL 2 MG/ML VL IV PRN ×5 (00:55→20:40)
[2018-11-01] MEDS: SOD CHL 0.9%/ KCL 40MEQ 1,000 ML IV SCH ×3 (01:59→20:39)
[2018-11-01 05:00] VITALS: BP 118/78
[2018-11-01 08:03] LABS: Lymphocytes # (auto) 1.6 uL
[2018-11-01 08:08] LABS: Basophils # (auto) 0.1 uL; Basophils % (auto) 0.8 % (0.0-2.0); Eosinophils # (auto) 0.3 uL; Hematocrit 29.7 % (36.0-46.0); Hemoglobin 10.1 g/dL (12.2-16.2); Lymphocytes % (auto) 18.4 % (10.0-50.0); Mean Corpuscular Hemoglobin 34.5 pg (28.0-32.0); Mean Corpuscular Hgb Conc. 33.9 g/dL (32.0-36.0); Mean Corpuscular Volume 101.9 fL (80.0-100.0); Monocytes # (auto) 1.1 uL; Monocytes % (auto) 12.8 % (0.0-12.0); Neutrophils # (auto) 5.8 uL; Platelet Count (auto) 205 10^3/uL (140-450); Red Blood Cells 2.92 10^6/uL (4.0-5.20); Red Cell Distribution Width 15.5 % (11.8-14.3); White Blood Cell 8.9 10^3/uL (4.4-10.8)
[2018-11-01 08:13] LABS: BUN/Creatinine Ratio 4.4; Calcium 9.1 mg/dL (8.5-10.1); Potassium 4.1 mmol/L (3.5-5.1)
[2018-11-01 09:00] VITALS: BP 112/72
[2018-11-01] MEDS: cefTRIAXone 1GM/50ML D5W 50 ML IV SCH (09:16)
[2018-11-01] MEDS: FOLIC ACID 1 MG TAB PO SCH (09:17)
[2018-11-01] MEDS: FAMOTIDINE 20 MG TAB PO SCH ×2 (09:17→20:39)
[2018-11-01] MEDS: THIAMINE HCL 100 MG TAB PO SCH (09:17)
[2018-11-01 13:00] VITALS: BP 101/63
[2018-11-01 16:50] VITALS: BP 108/72
[2018-11-01] MEDS: LORazepam 2MG/ML-1ML VIAL IV PRN ×2 (16:51→23:01)
--- NOTE | 2018-11-01 18:58 | NUR ---
REPORT GIVEN TO JS KIRK RN. ENDORSED CARE OF PATIENT. PATIENT HAS NO S/S OF DISTRESS, SOB, OR PAIN AT TIME OF SHIFT CHANGE.
[2018-11-01] MEDS: diphenhdrAMINE HCL 25 MG CAP PO PRN (20:39)
[2018-11-01] MEDS: ONDANSETRON HCL 4 MG/2 ML VIAL IV PRN (20:39)
[2018-11-01 22:00] VITALS: BP 116/78
[2018-11-02] MEDS: HYDROmorphone HCL 2 MG/ML VL IV PRN ×6 (02:30→23:51)
[2018-11-02] MEDS: LORazepam 2MG/ML-1ML VIAL IV PRN ×6 (03:43→23:51)
[2018-11-02 05:00] VITALS: BP 95/54
[2018-11-02] MEDS: SOD CHL 0.9%/ KCL 40MEQ 1,000 ML IV SCH ×2 (06:00→17:52)
[2018-11-02 06:32] LABS: Eosinophils # (auto) 0.2 uL; Monocytes # (auto) 1.4 uL; Neutrophils # (auto) 6.5 uL
[2018-11-02 06:34] LABS: Basophils # (auto) 0 uL; Basophils % (auto) 0.5 % (0.0-2.0); Eosinophils % (auto) 2.2 % (0.0-7.0); Hematocrit 31.9 % (36.0-46.0); Hemoglobin 10.7 g/dL (12.2-16.2); Lymphocytes # (auto) 1.9 uL; Lymphocytes % (auto) 18.8 % (10.0-50.0); Mean Corpuscular Hemoglobin 34.2 pg (28.0-32.0); Mean Corpuscular Hgb Conc. 33.4 g/dL (32.0-36.0); Mean Corpuscular Volume 102.7 fL (80.0-100.0); Monocytes % (auto) 13.7 % (0.0-12.0); Neutrophils % (auto) 64.8 % (37.0-80.0); Nucleated Red Blood Cells % 0.1 %; Platelet Count (auto) 253 10^3/uL (140-450); Red Blood Cells 3.11 10^6/uL (4.0-5.20); Red Cell Distribution Width 15.6 % (11.8-14.3)
[2018-11-02 06:50] LABS: Albumin 2.7 g/dL (3.4-5.0); BUN/Creatinine Ratio 5.4; Calcium 8.4 mg/dL (8.5-10.1); Potassium 4.1 mmol/L (3.5-5.1)
[2018-11-02 06:53] LABS: Bilirubin, Total 0.4 mg/dL (0.2-1.0); Total Protein 7.1 g/dL (6.4-8.2)
--- NOTE | 2018-11-02 08:00 | NUR ---
Opening Shift Note Assumed care of patient, awake and alert. No S/S of distress/SOB. C/o abd pain. Instructed on POC and to call for assist PRN, will continue to monitor for changes Q1hr and PRN.
[2018-11-02 09:00] VITALS: BP 121/76
[2018-11-02] MEDS: THIAMINE HCL 100 MG TAB PO SCH (10:01)
[2018-11-02] MEDS: cefTRIAXone 1GM/50ML D5W 50 ML IV SCH (10:01)
[2018-11-02] MEDS: FOLIC ACID 1 MG TAB PO SCH (10:01)
[2018-11-02] MEDS: FAMOTIDINE 20 MG TAB PO SCH ×2 (10:01→22:00)
[2018-11-02 12:54] VITALS: BP 111/67
--- NOTE | 2018-11-02 19:00 | NUR ---
Opening Shift Note Assumed care of patient, awake and alert. No S/S of distress/SOB or pain. Instructed on POC and to call for assist PRN, will continue to monitor for changes Q1hr and PRN.
[2018-11-02 22:00] VITALS: BP 96/58
[2018-11-03] MEDS: SOD CHL 0.9%/ KCL 40MEQ 1,000 ML IV SCH ×2 (03:07→14:04)
[2018-11-03] MEDS: LORazepam 2MG/ML-1ML VIAL IV PRN ×3 (03:07→16:15)
[2018-11-03] MEDS: HYDROmorphone HCL 2 MG/ML VL IV PRN ×2 (03:07→14:05)
[2018-11-03 05:00] VITALS: BP 99/67
[2018-11-03 08:00] VITALS: BP 105/68
--- NOTE | 2018-11-03 08:00 | NUR ---
Opening Shift Note Assumed care of patient, resting with eyes closed. Wakes to touch, but quickly goes right back to sleep. No S/S of distress/SOB or pain. Instructed on POC and to call for assist PRN, will continue to monitor for changes Q1hr and PRN.
[2018-11-03] MEDS: cefTRIAXone 1GM/50ML D5W 50 ML IV SCH (09:22)
--- NOTE | 2018-11-03 10:30 | NUR ---
AM MEDICATION HELD TEMPORARILY PATIENT REQUESTED PAIN AND ANXIETY MEDICATIONS. WHEN THIS NURSE WENT TO THE ROOM WITH THE REQUESTED MEDICATIONS AND THE AM MEDICATIONS, PATIENT WAS SLEEPING. PATIENT WAS DIFFICULT TO AROUSE TO SOUND AND TOUCH. SHE OPENED HER EYES BRIEFLY AND WENT BACK TO SLEEP. RESPIRATIONS WNL. THIS NURSE MADE THE DECISION TO HOLD THE MEDICATIONS UNTIL THE PATIENT IS MORE ALERT AND IT IS SAFE TO ADMINISTER THEM. WILL CONTINUE TO MONITOR PATIENT.
--- NOTE | 2018-11-03 11:53 | NUR ---
Nutrition consult/Follow-up Notes Wt. 57.5 kg Pt. endorses improved appetite from previous assessment with no GI distress associated with diet. Reports mild abdominal pain that does not affect appetite. PO 75-100% x 3 days. Est. Needs (based on previous assessment) Calories/Kcals/Kg 25-30 Kcals Calculated 1740 Proteing/K.0-1.2 Protein Calculated 58 Labs: H/H 10.7L/31.9L Skin: Shaun 20 GI: BM x 2 (11/03) PES: Altered nutrition related lab values r/t current chronic medical condition AEB elev pancreatic enzymes hyperglycemia (ongoing) Plan of care: Monitor PO intake/tolerance to diet, labs, skin integrity. F/U 3-5 days. Recommendations: 1) Continue current diet 2 gm Na/Cardiac diet as ordered and as tolerated.
[2018-11-03] MEDS: FAMOTIDINE 20 MG TAB PO SCH (12:00)
[2018-11-03] MEDS: FOLIC ACID 1 MG TAB PO SCH (12:00)
[2018-11-03] MEDS: THIAMINE HCL 100 MG TAB PO SCH (12:00)
--- NOTE | 2018-11-03 12:22 | NUR ---
Sleeping Patient still sleeping. Morning medications held until patient is awake and alert.
[2018-11-03 13:00] VITALS: BP 117/75
--- NOTE | 2018-11-03 17:45 | NUR ---
DISCHARGE WENT OVER DISCHARGE PAPERWORK WITH PATIENT. PRESCRIPTIONS GIVEN TO PATIENT. IV REMOVED AND ID BAND REMOVED. PATIENT TOOK ALL BELONGINGS AND LEFT IN PERSONAL VEHICLE WITH FAMILY MEMBER.
== END 2018-11-03 18:00 | disposition home or self-care (01) | DRG 720 ==
LOC: EDBD 20:03 → ER 20:07 → OVERFLOW 20:08 → WEST WING 10-26 10:16
PROVIDERS: ADMIT Nurse Practitioner Acute Care; ATTEND Internal Medicine Pulmonary Disease
DX: A41.9 Sepsis, unspecified organism (principal); K85.90 Acute pancreatitis without necrosis or infection, unspecified; E83.52 Hypercalcemia; K76.0 Fatty (change of) liver, not elsewhere classified; K80.21 Calculus of gallbladder without cholecystitis with obstruction; N39.0 Urinary tract infection, site not specified; E87.6 Hypokalemia; F17.210 Nicotine dependence, cigarettes, uncomplicated; K57.30 Diverticulosis of large intestine without perforation or abscess without bleeding; G89.29 Other chronic pain; M54.9 Dorsalgia, unspecified
CPT/HCPCS: 36415; 74022; 74176; 76700; 80048; 80053; 80307; 81001; 82150; 83690; 83735; 84132; 84155; 84165; 84702; 85025; 87086; 94761; 96365; 96375; 96376; G0378; J0696; J2001; J2405; J3480; J3490

== ENCOUNTER 2019-01-06 22:05 | Inpatient (IN) | payer MEDICAID ==
[~2019-01-06] VITALS: Ht 167.6 cm; Wt 62.0 kg
[2019-01-06] MEDS ORDERED: SODIUM CHLORIDE 0.9% 1,000 ML IV ONE (23:00)
[2019-01-06 23:48] LABS: Basophils # (auto) 0.2 uL; Basophils % (auto) 1.5 % (0.0-2.0); Eosinophils # (auto) 0 uL; Eosinophils % (auto) 0.2 % (0.0-7.0); Hematocrit 28.2 % (36.0-46.0); Hemoglobin 9.5 g/dL (12.2-16.2); Lymphocytes # (auto) 1.4 uL; Lymphocytes % (auto) 9.6 % (10.0-50.0); Mean Corpuscular Hemoglobin 32.7 pg (28.0-32.0); Mean Corpuscular Hgb Conc. 33.8 g/dL (32.0-36.0); Mean Corpuscular Volume 96.5 fL (80.0-100.0); Monocytes # (auto) 0.9 uL; Monocytes % (auto) 6.4 % (0.0-12.0); Neutrophils # (auto) 11.7 uL; Neutrophils % (auto) 82.3 % (37.0-80.0); Platelet Count (auto) 69 10^3/uL (140-450); Red Blood Cells 2.92 10^6/uL (4.0-5.20); Red Cell Distribution Width 16.9 % (11.8-14.3); White Blood Cell 14.2 10^3/uL (4.4-10.8)
[2019-01-07] MEDS ORDERED: SODIUM CHLORIDE 0.9% 1,000 ML IV ONE
[2019-01-07] MEDS ORDERED: ONDANSETRON HCL 4 MG/2 ML VIAL IV ONE
[2019-01-07 00:07] LABS: Alanine Aminotransferase 502 U/L (13-56); Albumin 2.6 g/dL (3.4-5.0); Amylase 17 U/L (25-115); Anion Gap 13 (5-15); BUN/Creatinine Ratio 21.2; Blood Urea Nitrogen 11 mg/dL (7-18); Calcium 7.3 mg/dL (8.5-10.1); Carbon Dioxide 25 mmol/L (21-32); Chloride 96 mmol/L (98-107); GFR African American 172 mL/min; GFR Non-African American 142 mL/min; Glucose 152 mg/dL (74-106); Lipase 27 U/L (73-393); Sodium 134 mmol/L (136-145)
[2019-01-07 00:23] LABS: Potassium 2.3 mmol/L (3.5-5.1)
[2019-01-07 00:30] LABS: INR 2.44 (0.9-1.15); Partial Thromboplastin Time 36.5 sec (23.64-32.05)
[2019-01-07 00:31] LABS: Alkaline Phosphatase 258 U/L (45-117); Aspartate Aminotransferase 2025 U/L (15-37); Total Protein 6.8 g/dL (6.4-8.2)
[2019-01-07 00:41] LABS: Urine Bacteria FEW /hpf (None Seen); Urine Blood Negative /uL (Negative); Urine WBC 47 /hpf (0 - 5)
[2019-01-07 01:00] LABS: Barbiturate Scree,Urine NEGATIVE (NEGATIVE); Benzodiazephine Screen, Urine NEGATIVE (NEGATIVE); Cannabinoid Screen, Urine NEGATIVE (NEGATIVE); Cocaine Screen, Urine NEGATIVE (NEGATIVE)
[2019-01-07] MEDS ORDERED: POTASSIUM CHL 20MEQ/100ML 100 ML IV ONE (01:00)
[2019-01-07 01:04] LABS: Lactic Acid w/Reflex 2.7 mmol/L (0.4-2.0)
[2019-01-07 01:04] LABS: Amphetamine Screen, Urine NEGATIVE (NEGATIVE); Opiate Scree,Urine NEGATIVE (NEGATIVE); Phencyclidine Screen, Urine NEGATIVE (NEGATIVE)
[2019-01-07] MEDS ORDERED: MORPHINE SULFATE 4 MG/ML SYR/VIAL IV ONE ×2 (01:30)
[2019-01-07] MEDS ORDERED: SODIUM CHLORIDE 0.9% 1,900 ML IV ONE (02:15)
[2019-01-07] MEDS ORDERED: VANCOMYCIN PER PHARMACY 1,000 MG IV SCH (02:15)
[2019-01-07] MEDS ORDERED: PIPERACILLIN-TAZOB 3.375GM 100 ML IV ONE (03:45)
[2019-01-07] MEDS ORDERED: VANCOMYCIN 1GM/250ML 250 ML IV ONE (03:45)
[2019-01-07] MEDS ORDERED: MORPHINE SULF INJ 2 MG/ML SYRINGE 1ML IV ONE (05:00)
[2019-01-07] MEDS ORDERED: ONDANSETRON HCL 4 MG/2 ML VIAL IV PRN (05:00)
[2019-01-07] MEDS ORDERED: HYDROcodone-ACET 5/325MG TAB PO ONE (05:15)
[2019-01-07] MEDS ORDERED: diphenhdrAMINE HCL 50 MG/1 ML VL IV ONE (05:15)
[2019-01-07] MEDS: SODIUM CHLORIDE 0.9% 1,000 ML IV SCH ×2 (05:55→18:29)
[2019-01-07] MEDS: PIPERACILLIN-TAZOB 3.375GM 100 ML IV SCH ×3 (05:55→18:29)
[2019-01-07] MEDS ORDERED: POTASSIUM CHL 20MEQ/100ML 100 ML IV SCH (06:00)
[2019-01-07] MEDS ORDERED: LORazepam 2MG/ML-1ML VIAL IV PRN (06:00)
[2019-01-07 06:37] LABS: INR 2.16 (0.9-1.15); Partial Thromboplastin Time 40.4 sec (23.64-32.05)
[2019-01-07] MEDS ORDERED: POTASSIUM EFFERVESENT TAB 25 MEQ PO ONE (06:45)
--- NOTE | 2019-01-07 08:30 | NUR ---
Telemetry admit from ER MIKHAIL BEAR admitted to Telemetry unit after report was received. Patient oriented to primary RN, unit, room, bed, and unit policies regarding patient care and visiting hours. Patient now on continuous telemetry monitoring, tele box #35. Patient placed on bedside oxygen at 3L NC, vital signs taken, and patient encouraged to call if they need something. All questions and concerns addressed, patient verbalized understanding. Skin intact.
[2019-01-07 09:00] VITALS: BP 89/54
[2019-01-07] MEDS: MORPHINE SULF INJ 2 MG/ML SYRINGE 1ML IV PRN (09:09)
[2019-01-07] MEDS ORDERED: INFLUENZA QUAD 2019-2020 0.5ml SYRG IM ONE (09:45)
[2019-01-07] MEDS: FAMOTIDINE (10MG/ML) 2ML VL IV SCH ×2 (10:48→21:58)
[2019-01-07] MEDS: FOLIC ACID 1 MG TAB PO SCH (10:48)
[2019-01-07 11:40] LABS: Albumin 2.3 g/dL (3.4-5.0); BUN/Creatinine Ratio 14.8; Bilirubin, Total 4.7 mg/dL (0.2-1.0); Calcium 6.6 mg/dL (8.5-10.1); Total Protein 6.2 g/dL (6.4-8.2)
--- NOTE | 2019-01-07 11:45 | NUR ---
Influenza vaccine Vaccine given as ordered. Location: patient's upper right arm. Patient denied any allergies to eggs. She said she had a flu vaccine previously with no reactions. Will continue to monitor.
[2019-01-07 11:47] LABS: Lactic Acid w/Reflex 2.1 mmol/L (0.4-2.0)
[2019-01-07 11:50] VITALS: BP 94/52
[2019-01-07] MEDS: FOLIC ACID 1 MG, MULTIPLE VITAMIN 10 ML, MAGNESIUM SULF SDV 50% 8 MEQ, THIAMINE INJ 100... INJ SCH ×5 (12:30)
[2019-01-07 13:00] VITALS: BP 91/49
--- NOTE | 2019-01-07 16:01 | NUR ---
Pain/Medication Called MD and left message regarding patient c/o abdominal pain. Patient only has Morphine ordered for pain, but her blood pressure has been too low to safely give the medication. Patient has been sleeping on and off since being admitted to the unit. Banana bag running at this time as ordered. Also informed MD that her potassium level is 3.0, which is up from 2.3 this morning but still below normal limits.
[2019-01-07 17:00] VITALS: BP 93/52
[2019-01-07] MEDS: LORazepam 0.5 MG TAB PO PRN (18:38)
[2019-01-07 22:05] VITALS: BP 88/52
[2019-01-08] MEDS: PIPERACILLIN-TAZOB 3.375GM 100 ML IV SCH ×5 (00:44→23:47)
[2019-01-08] MEDS: MORPHINE SULF INJ 2 MG/ML SYRINGE 1ML IV PRN ×5 (02:38→23:46)
[2019-01-08] MEDS: LORazepam 0.5 MG TAB PO PRN ×3 (03:00→23:45)
[2019-01-08 05:19] VITALS: BP 124/69
[2019-01-08 06:06] LABS: Basophils # (auto) 0 uL; Basophils % (auto) 0.5 % (0.0-2.0); Eosinophils # (auto) 0.2 uL; Eosinophils % (auto) 2.2 % (0.0-7.0); Hematocrit 25.3 % (36.0-46.0); Hemoglobin 8.6 g/dL (12.2-16.2); Mean Corpuscular Hemoglobin 33.8 pg (28.0-32.0); Mean Corpuscular Hgb Conc. 34.2 g/dL (32.0-36.0); Mean Corpuscular Volume 98.8 fL (80.0-100.0); Monocytes # (auto) 0.9 uL; Monocytes % (auto) 10.1 % (0.0-12.0); Neutrophils # (auto) 6.9 uL; Neutrophils % (auto) 76.2 % (37.0-80.0); Nucleated Red Blood Cells % 0.1 %; Platelet Count (auto) 67 10^3/uL (140-450); Red Blood Cells 2.56 10^6/uL (4.0-5.20); Red Cell Distribution Width 17.5 % (11.8-14.3); White Blood Cell 9.1 10^3/uL (4.4-10.8)
[2019-01-08 06:33] LABS: BUN/Creatinine Ratio 12.8; Calcium 6.5 mg/dL (8.5-10.1)
[2019-01-08 06:43] LABS: Potassium 2.5 mmol/L (3.5-5.1)
--- NOTE | 2019-01-08 06:45 | NUR ---
Critical Potassium at 2.5, Hospitalist paged, called back with new orders to given Potassium 60meq po and 40meq IV KCL.
[2019-01-08] MEDS ORDERED: POTASSIUM EFFERVESENT TAB 25 MEQ PO ONE (07:00)
[2019-01-08] MEDS: POTASSIUM CHL 20MEQ/100ML 100 ML IV SCH ×2 (07:11→10:30)
[2019-01-08] MEDS: SODIUM CHLORIDE 0.9% 1,000 ML IV SCH ×2 (07:40→21:00)
--- NOTE | 2019-01-08 07:45 | NUR ---
Opening Shift Note Assumed care of patient, awake and alert. No S/S of distress/SOB or pain. Bed in lowest position breaks locked side rails up x2 call light with in reach. Instructed on POC and to call for assist PRN, will continue to monitor for changes Q1hr and PRN.
[2019-01-08 09:00] VITALS: BP 100/64
[2019-01-08] MEDS: FOLIC ACID 1 MG TAB PO SCH (10:30)
[2019-01-08] MEDS: FAMOTIDINE (10MG/ML) 2ML VL IV SCH ×2 (10:30→22:41)
--- NOTE | 2019-01-08 12:45 | NUR ---
Notified PX Banana bag not received.
[2019-01-08 13:00] VITALS: BP 90/57
[2019-01-08] MEDS: GABAPENTIN 300 MG CAP PO SCH ×2 (14:03→22:41)
--- NOTE | 2019-01-08 14:50 | NUR ---
was at bedside - Dr. Ramírez
--- NOTE | 2019-01-08 14:56 | NUR ---
Patient requesting to smoke Smoking education along with fall precautions provided to the patient. Patient verbalized understanding. Notified Dr. Ramírez. Orders received and read back to verify.
[2019-01-08] MEDS ORDERED: NICOTINE 21MG/24 HR TOPICAL PATCH TD ONE (15:00)
[2019-01-08 17:00] VITALS: BP 90/59
[2019-01-08] MEDS: FOLIC ACID 1 MG, MULTIPLE VITAMIN 10 ML, MAGNESIUM SULF SDV 50% 8 MEQ, THIAMINE INJ 100... INJ SCH ×5 (18:30)
--- NOTE | 2019-01-08 19:26 | NUR ---
Closing note patient resting in bed with even and unlabored respirations, no distress noted. Fall precautions in place with call light within reach. Care endorsed to LOTUS Vivas.
[2019-01-08 22:03] VITALS: BP 101/62
[2019-01-09 05:08] VITALS: BP 97/60
[2019-01-09] MEDS: PIPERACILLIN-TAZOB 3.375GM 100 ML IV SCH ×2 (05:55→12:00)
[2019-01-09] MEDS: GABAPENTIN 300 MG CAP PO SCH ×2 (05:59→14:00)
[2019-01-09 06:55] LABS: Basophils # (auto) 0 uL; Eosinophils # (auto) 0.2 uL; Eosinophils % (auto) 2.1 % (0.0-7.0); Hemoglobin 7.9 g/dL (12.2-16.2); Lymphocytes # (auto) 1.3 uL; Lymphocytes % (auto) 14.9 % (10.0-50.0); Mean Corpuscular Hemoglobin 34.1 pg (28.0-32.0); Mean Corpuscular Hgb Conc. 34.3 g/dL (32.0-36.0); Mean Corpuscular Volume 99.5 fL (80.0-100.0); Monocytes # (auto) 1.3 uL; Neutrophils # (auto) 6.1 uL; Nucleated Red Blood Cells % 0.1 %; Red Blood Cells 2.31 10^6/uL (4.0-5.20); White Blood Cell 8.9 10^3/uL (4.4-10.8)
[2019-01-09 06:56] LABS: INR 1.53 (0.9-1.15)
[2019-01-09 06:58] LABS: Basophils % (auto) 0.4 % (0.0-2.0); Calcium 6.8 mg/dL (8.5-10.1); Monocytes % (auto) 14.9 % (0.0-12.0); Neutrophils % (auto) 67.7 % (37.0-80.0); Platelet Count (auto) 87 10^3/uL (140-450); Potassium 3.1 mmol/L (3.5-5.1); Red Cell Distribution Width 18.5 % (11.8-14.3)
[2019-01-09 07:00] LABS: Albumin 2.1 g/dL (3.4-5.0); BUN/Creatinine Ratio 4.5; Magnesium 1.5 mg/dL (1.6-2.6)
[2019-01-09 07:03] LABS: Bilirubin, Total 4.7 mg/dL (0.2-1.0); Total Protein 5.8 g/dL (6.4-8.2)
[2019-01-09 07:45] VITALS: BP 97/68
--- NOTE | 2019-01-09 08:00 | NUR ---
Morning note Patient resting in bed with even and unlabored respirations, eyes closed. No distress noted. Fall precautions in place with bed in lowest locked position, x2 side rails up and call light within reach. Will continue to monitor q1hr & PRN.
[2019-01-09] MEDS: FAMOTIDINE (10MG/ML) 2ML VL IV SCH (08:50)
[2019-01-09] MEDS: MORPHINE SULF INJ 2 MG/ML SYRINGE 1ML IV PRN (08:50)
[2019-01-09] MEDS: FOLIC ACID 1 MG TAB PO SCH (08:51)
[2019-01-09 09:00] VITALS: BP 97/68
--- NOTE | 2019-01-09 09:34 | NUR ---
Doctor Najma park.
[2019-01-09] MEDS ORDERED: NICOTINE 21MG/24 HR TOPICAL PATCH TD SCH (10:00)
--- NOTE | 2019-01-09 10:00 | NUR ---
D/C Planning Per SS consult for resources for AA. Pt was given resource for rehabilitation centers ( [facility], [facility], [facility] and [facility]. Pt verbalize understanding.
[2019-01-09] MEDS: SODIUM CHLORIDE 0.9% 1,000 ML IV SCH (10:20)
[2019-01-09] MEDS: FOLIC ACID 1 MG, MULTIPLE VITAMIN 10 ML, MAGNESIUM SULF SDV 50% 8 MEQ, THIAMINE INJ 100... INJ SCH ×5 (12:00)
[2019-01-09 13:00] VITALS: BP 99/59
[2019-01-09 13:28] VITALS: BP 99/59
--- NOTE | 2019-01-09 14:30 | NUR ---
Per Lata, enrollment services vice president has seen patient. Patient received community resources.
--- NOTE | 2019-01-09 15:25 | NUR ---
Discharge instructions given as ordered. Encourage to follow up with PMD as instructed. All questions and concerns addressed. Patient verbalized understanding. Medication reconciliation form completed and copy given to patient. No home medications held in Pharmacy and none returned to patient, and needed vaccines given. IV removed with catheter intact, pressure dressing applied. Telemetry unit returned to ICU. Instructed patient to take all personal belonging with them, patient verbalized understanding. Respirations even, no S/S of distress noted.
--- NOTE | 2019-01-09 15:45 | NUR ---
Patient ambulated off unit with steady gait patient refused wheelchair. Patient reports having all personal belongings. Patient taken to hospital lobby to wait for transportation. Respirations even and unlabored, no distress noted.
[2019-01-09] MEDS ORDERED: PANTOPRAZOLE 40 MG TAB PO SCH (22:00)
== END 2019-01-09 15:45 | disposition home or self-care (01) | DRG 280 ==
LOC: EDSEX 22:05 → EDBD 22:05 → ER 22:06 → TELE 22:07 → TELE-CENTR 01-07 08:08
PROVIDERS: ADMIT Nurse Practitioner Family; ATTEND Internal Medicine
DX: K70.9 Alcoholic liver disease, unspecified (principal); D68.9 Coagulation defect, unspecified; D69.6 Thrombocytopenia, unspecified; E87.1 Hypo-osmolality and hyponatremia; E88.09 Other disorders of plasma-protein metabolism, not elsewhere classified; N39.0 Urinary tract infection, site not specified; E87.6 Hypokalemia; F10.229 Alcohol dependence with intoxication, unspecified; D64.9 Anemia, unspecified; F17.210 Nicotine dependence, cigarettes, uncomplicated; F10.239 Alcohol dependence with withdrawal, unspecified; K21.9 Gastro-esophageal reflux disease without esophagitis; K57.30 Diverticulosis of large intestine without perforation or abscess without bleeding; K59.00 Constipation, unspecified; K76.0 Fatty (change of) liver, not elsewhere classified; Y90.6 Blood alcohol level of 120-199 mg/100 ml; Z79.899 Other long term (current) drug therapy; Z23 Encounter for immunization; Z83.3 Family history of diabetes mellitus; Z80.9 Family history of malignant neoplasm, unspecified
CPT/HCPCS: 36415; 36600; 71045; 74176; 76705; 80048; 80053; 80307; 80320; 81001; 82140; 82150; 82553; 82805; 83605; 83690; 83735; 84484; 84702; 85025; 85379; 85384; 85610; 85730; 87040; 87086; 87088; 87186; 93005; 96365; 96375; 99291; G0378; J2405; J2543; J3480; J3490

== ENCOUNTER 2019-07-21 20:38 | Inpatient (IN) | payer MEDICAID ==
[~2019-07-21] VITALS: Ht 160 cm; Wt 63.3 kg
[2019-07-21] MEDS ORDERED: KETOROLAC TROMETH 15 mg/ml 1ML VL IV ONE (21:30)
[2019-07-21 21:33] LABS: Basophils # (auto) 0 10 ^3/uL (0-0.2); Basophils % (auto) 0.2 % (0.0-2.0); Eosinophils # (auto) 0 10 ^3/uL (0-0.8); Eosinophils % (auto) 0.1 % (0.0-7.0); Hematocrit 26.3 % (36.0-46.0); Hemoglobin 8.5 g/dL (12.2-16.2); Lymphocytes # (auto) 1.3 10 ^3/uL (0.4-5.4); Lymphocytes % (auto) 8.5 % (10.0-50.0); Mean Corpuscular Hemoglobin 27.7 pg (28.0-32.0); Mean Corpuscular Hgb Conc. 32.5 g/dL (32.0-36.0); Mean Corpuscular Volume 85.3 fL (80.0-100.0); Monocytes # (auto) 1.2 10 ^3/uL (0-1.3); Monocytes % (auto) 7.9 % (0.0-12.0); Neutrophils # (auto) 12.3 10 ^3/uL (1.6-8.6); Neutrophils % (auto) 83.3 % (37.0-80.0); Nucleated Red Blood Cells % 0.1 %; Platelet Count (auto) 113 10^3/uL (140-450); Red Blood Cells 3.08 10^6/uL (4.0-5.20); Red Cell Distribution Width 19.3 % (11.8-14.3); White Blood Cell 14.7 10^3/uL (4.4-10.8)
[2019-07-21 21:38] LABS: Urine Bacteria NONE SEEN /hpf (None Seen); Urine Blood Negative /uL (Negative); Urine Hyaline Cast FEW /lpf (0 - 2); Urine Mucus FEW (None Seen); Urine Specific Gravity 1.033 (1.001-1.035); Urine WBC 13 /hpf (0 - 5)
[2019-07-21 21:43] LABS: Albumin 3.3 g/dL (3.4-5.0); Anion Gap 9 (5-15); Blood Urea Nitrogen 2 mg/dL (7-18); Calcium 8.1 mg/dL (8.5-10.1); Carbon Dioxide 26 mmol/L (21-32); Chloride 96 mmol/L (98-107); Glucose 160 mg/dL (74-106); Magnesium 1.4 mg/dL (1.6-2.6); Potassium 3.2 mmol/L (3.5-5.1); Sodium 131 mmol/L (136-145)
[2019-07-21 21:46] LABS: INR 1.44 (0.9-1.15); Partial Thromboplastin Time 29.2 sec (23.64-32.05)
[2019-07-21 21:51] LABS: Alanine Aminotransferase 29 U/L (13-56); Alkaline Phosphatase 211 U/L (45-117); Aspartate Aminotransferase 107 U/L (15-37); BUN/Creatinine Ratio 2.7; Bilirubin, Total 2.4 mg/dL (0.2-1.0); GFR African American 115 mL/min; GFR Non-African American 95 mL/min; Total Protein 9.1 g/dL (6.4-8.2)
[2019-07-21] MEDS ORDERED: ALBUTEROL SULF HFA 90MCG INH 200DOSE IN SCH (22:00)
[2019-07-21] MEDS ORDERED: AZITHROMYCIN 500MG/ 250ML 250 ML IV ONE (22:15)
[2019-07-21] MEDS ORDERED: SODIUM CHLORIDE 0.9% 2,000 ML IV ONE (22:15)
[2019-07-21] MEDS ORDERED: KETOROLAC TROMETH 30 MG/ML 1ML VIAL ONE (22:21)
[2019-07-22] VITALS (11 sets, daily range): BP systolic 104–123; BP diastolic 52–74
[2019-07-22] MEDS ORDERED: SODIUM CHLORIDE 0.9% 1,000 ML IV SCH ×2 (00:09)
[2019-07-22] MEDS ORDERED: DOCUSATE SOD 100 MG CAP PO PRN (00:15)
[2019-07-22] MEDS ORDERED: ONDANSETRON HCL 4 MG/2 ML VIAL IV PRN (00:15)
[2019-07-22] MEDS ORDERED: DEXTROSE (50%) 50ML SYRG IV PRN (00:15)
[2019-07-22] MEDS ORDERED: LORazepam 0.5 MG TAB PO PRN (00:15)
[2019-07-22] MEDS ORDERED: HYDROcodone-ACET 5/325MG TAB PO PRN (00:15)
[2019-07-22] MEDS ORDERED: ACETAMINOPHEN 500 MG TAB PO PRN (00:15)
[2019-07-22] MEDS ORDERED: cefTRIAXone 1GM/50ML D5W 50 ML IV SCH (01:00)
[2019-07-22] MEDS: MORPHINE SULFATE 4 MG/ML SYR/VIAL IV PRN ×5 (01:25→22:03)
[2019-07-22] MEDS ORDERED: ALBUTEROL SULF HFA 90MCG INH 200DOSE IN SCH ×4 (01:30→06:00)
[2019-07-22] MEDS: DOXYCYCLINE 100MG/250ML 250 ML IV SCH ×2 (02:04→12:45)
--- NOTE | 2019-07-22 03:45 | NUR ---
Telemetry admit from ER MIKHAIL BEAR admitted to Telemetry unit after SBAR received. Patient oriented to KIMBER GABRIEL, RN primary RN, unit, room, bed, and unit policies regarding patient care and visiting hours. Patient now on continuous telemetry monitoring, tele box # 1 and telemetry reading on arrival to unit is SR 95. Patient weighed by bedscale and encouraged to call if they need something. All questions and concerns addressed, patient verbalized understanding. Fall precautions in place
[2019-07-22] MEDS: InsuLIN REG 1unit/0.01ml Soln (100units/ml) SC SCH ×5 (04:00→20:00)
[2019-07-22] MEDS: ACCU-CHEK COMFORT CURVE STRIP VI SCH ×5 (04:11→20:00)
--- NOTE | 2019-07-22 04:13 | NUR ---
Urine sent for lab work
[2019-07-22 04:42] LABS: Alcohol, Urine < 3.0 mg/dL (0-5); Amphetamine Screen, Urine NEGATIVE (NEGATIVE); Barbiturate Scree,Urine NEGATIVE (NEGATIVE); Benzodiazephine Screen, Urine NEGATIVE (NEGATIVE); Cannabinoid Screen, Urine NEGATIVE (NEGATIVE); Cocaine Screen, Urine NEGATIVE (NEGATIVE); Opiate Scree,Urine NEGATIVE (NEGATIVE); Phencyclidine Screen, Urine NEGATIVE (NEGATIVE)
[2019-07-22 05:39] LABS: Basophils # (auto) 0 10 ^3/uL (0-0.2); Eosinophils # (auto) 0.1 10 ^3/uL (0-0.8); Monocytes # (auto) 0.6 10 ^3/uL (0-1.3); Neutrophils # (auto) 7.4 10 ^3/uL (1.6-8.6)
[2019-07-22 05:40] LABS: Basophils % (auto) 0.3 % (0.0-2.0); Eosinophils % (auto) 0.5 % (0.0-7.0); Hematocrit 20.4 % (36.0-46.0); Lymphocytes # (auto) 1.4 10 ^3/uL (0.4-5.4); Lymphocytes % (auto) 14.6 % (10.0-50.0); Mean Corpuscular Hemoglobin 28.6 pg (28.0-32.0); Mean Corpuscular Volume 86.7 fL (80.0-100.0); Monocytes % (auto) 6.1 % (0.0-12.0); Neutrophils % (auto) 78.5 % (37.0-80.0); Platelet Count (auto) 76 10^3/uL (140-450); Red Blood Cells 2.35 10^6/uL (4.0-5.20); Red Cell Distribution Width 19.4 % (11.8-14.3); White Blood Cell 9.5 10^3/uL (4.4-10.8)
--- NOTE | 2019-07-22 05:45 | NUR ---
patient reported 8/10 pain to back aching . patient medicated per protocol
[2019-07-22 05:53] LABS: BUN/Creatinine Ratio 2.1; Calcium 7.4 mg/dL (8.5-10.1)
[2019-07-22 05:56] LABS: Hemoglobin 6.7 g/dL (12.2-16.2)
[2019-07-22 06:04] LABS: Potassium 2.9 mmol/L (3.5-5.1)
--- NOTE | 2019-07-22 06:09 | NUR ---
Md argueta notified of patient critical hgb 6.7 orders for redraw hgb/hct, informed critical 2.9 potassium. informed md of mg of 1.3. new orders received 60meq of potassium iv k rider and 1gm of magnesium iv . orders read back and verified by
[2019-07-22] MEDS ORDERED: MAGNESIUM SULFATE 1GM/100ML 100 ML IV ONE (06:15)
[2019-07-22] MEDS: POTASSIUM CHL 20MEQ/100ML 100 ML IV SCH ×3 (06:38→10:33)
--- NOTE | 2019-07-22 07:05 | NUR ---
second time calling lab after unsuccessful lab draw times 2. per lab clerk she does not see order. informed lab clerk order continues to get cancelled unknown why. informed new order for H&H placed per MD and to send lab clerk for redraw. \ unsuccessful iv insertion after 2 attempts. will endorse care to reji sanches.
--- NOTE | 2019-07-22 07:19 | NUR ---
endorse care to dayshift RN informed garnett feeder redraw for HGB and HCT is to be done. endorsed care to rn to administer magnesium as there is no second iv present. patient denies sob distress or pain. fall precautions in place.
[2019-07-22 07:58] LABS: Hematocrit 20.2 % (36.0-46.0)
--- NOTE | 2019-07-22 08:00 | NUR ---
OPENING SHIFT NOTE: PATIENT RESTING IN BED LOW FOWLERS. PATIENT DENIES PAIN AND SOB AT THIS TIME. A&OX4. PATIENT REPORTS LBM DARK/ BLACK ON 07/20/19 STATES SHE HAS NOT BEEN EATING DUE TO NAUSEA AND VOMITING. NO NAUSEA OR VOMITING REPORTED AT THIS TIME. PATIENT UPDATED ON POC. BED IN LOWEST LOCKED POSITION WITH CALL LIGHT WITHIN REACH.
[2019-07-22 08:01] LABS: Hemoglobin 6.5 g/dL (12.2-16.2)
--- NOTE | 2019-07-22 08:03 | NUR ---
RECEIVED HGB LAB VALUE: 6.5 (FROM LAB STAFF). PRIMARY RN NOTIFIED OF RESULT.
--- NOTE | 2019-07-22 08:22 | NUR ---
PAGED ON-CALL HOSPITALIST REGARDING CRITICAL HEMOGLOBIN.
[2019-07-22] MEDS ORDERED: PANTOPRAZOLE 40mg/50ML NS AE 50 ML IV SCH (09:00)
[2019-07-22] MEDS: cefTRIAXone 1GM/50ML D5W 50 ML IV SCH (09:00)
[2019-07-22] MEDS ORDERED: ENOXAPARIN SOD 40 MG/0.4 ML SYRINGE SC SCH (10:00)
[2019-07-22] MEDS: ASCORBIC ACID 1,000 MG TAB PO SCH (10:13)
[2019-07-22] MEDS: CHOLECALCIFEROL (VITD3) 1,000IU=25mCg TAB PO SCH (10:13)
[2019-07-22] MEDS: ZINC SULFATE 220mg CAP or TAB PO SCH (10:13)
[2019-07-22] MEDS: SODIUM CHLORIDE 0.9% 1,000 ML IV SCH ×2 (11:00→18:53)
--- NOTE | 2019-07-22 12:42 | NUR ---
Resumed care Received report from Dayne GAUTAM. Patient being transferred from room 235 to room 202 via wheelchair. Patient is awake, alert and oriented. No signs or symptoms of distress or shortness of breath at this time. Blood products actively infusing through left AC. Patient tolerating well. Reviewed plan of care with patient, patient verbalized understanding. Bed in low and locked position, call light within reach. Will continue to monitor Q1 hour and PRN.
--- NOTE | 2019-07-22 12:58 | NUR ---
Face-sheet sent to tele radiation monitor Jacklyn to get new tele box.
--- NOTE | 2019-07-22 13:05 | NUR ---
Tele Box #35, heart rhythm at Sinus Rhythm 95bpm at this time. Will continue to monitor.
--- NOTE | 2019-07-22 13:14 | NUR ---
Pulmonary Consultation Dr. Canelo park. updated on patients status. All questions answered to satisfaction. New orders entered by MD. Refer to order hx. Will continue to monitor.
--- NOTE | 2019-07-22 13:20 | NUR ---
GI Consultation Dr. Desiree park, per MD plan for EGD in am. Refer to order hx. Will continue to monitor.
--- NOTE | 2019-07-22 13:46 | NUR ---
Nutrition Assessment Notes Please refer to link for full assessment notes. Est Energy needs: [id number] kcals (23-25 kcal/kgBW) Est Protein needs: 49-61 gms/day (0.8-1.0 gm/kgBW) Will continue to monitor and reassess prn. Addendum: 07/22/19 at [address] Amended: Links added.
--- NOTE | 2019-07-22 14:12 | NUR ---
Re EGD consent Patients states she has further questions for MD regarding procedure and is not comfortable signing consents at this time.
--- NOTE | 2019-07-22 15:22 | NUR ---
MS. Keene at bed side discussing POC with patient. Patient verbalizes understanding/
--- NOTE | 2019-07-22 15:53 | NUR ---
Stool Occult Sample collected and sent to lab as per order.
--- NOTE | 2019-07-22 21:40 | NUR ---
END OF TRANSFUSION SECOND UNIT OF BLOOD. NO REACTIONS. T98.4,HR94, RR 17, SPO2 100% BP 123/74
--- NOTE | 2019-07-22 22:00 | NUR ---
PT STATED SHE WANTS TO SIGN THE CONSENT FOR EGD DOWNSTAIRS.SHE WANTS MORE EXPLANATIONS FROM THE DOCTOR.
[2019-07-22] MEDS: PANTOPRAZOLE 40 MG/10 ML VIAL INJ IV SCH (22:04)
[2019-07-23] MEDS: ACCU-CHEK COMFORT CURVE STRIP VI SCH ×6 (00:26→20:07)
[2019-07-23 00:55] LABS: Hematocrit 27.6 % (36.0-46.0)
[2019-07-23] MEDS: DOXYCYCLINE 100MG/250ML 250 ML IV SCH (01:00)
[2019-07-23] MEDS: TEMAZEPAM 15 MG CAP PO PRN ×2 (01:05→23:50)
[2019-07-23] MEDS: SODIUM CHLORIDE 0.9% 1,000 ML IV SCH ×2 (02:45→10:45)
[2019-07-23] MEDS: InsuLIN REG 1unit/0.01ml Soln (100units/ml) SC SCH ×6 (04:00→20:11)
[2019-07-23] MEDS: MORPHINE SULFATE 4 MG/ML SYR/VIAL IV PRN ×4 (05:15→20:52)
[2019-07-23 05:42] LABS: Basophils # (auto) 0.1 10 ^3/uL (0-0.2); Basophils % (auto) 0.7 % (0.0-2.0); Eosinophils # (auto) 0.1 10 ^3/uL (0-0.8); Eosinophils % (auto) 1.7 % (0.0-7.0); Hematocrit 26.4 % (36.0-46.0); Hemoglobin 8.7 g/dL (12.2-16.2); Lymphocytes # (auto) 1.7 10 ^3/uL (0.4-5.4); Lymphocytes % (auto) 21.9 % (10.0-50.0); Mean Corpuscular Hemoglobin 28.6 pg (28.0-32.0); Mean Corpuscular Hgb Conc. 32.8 g/dL (32.0-36.0); Mean Corpuscular Volume 87.1 fL (80.0-100.0); Monocytes # (auto) 0.6 10 ^3/uL (0-1.3); Monocytes % (auto) 7.2 % (0.0-12.0); Neutrophils # (auto) 5.4 10 ^3/uL (1.6-8.6); Neutrophils % (auto) 68.5 % (37.0-80.0); Nucleated Red Blood Cells % 0.1 %; Platelet Count (auto) 72 10^3/uL (140-450); Red Blood Cells 3.03 10^6/uL (4.0-5.20); Red Cell Distribution Width 17.5 % (11.8-14.3); White Blood Cell 7.9 10^3/uL (4.4-10.8)
[2019-07-23 06:05] LABS: Albumin 2.4 g/dL (3.4-5.0); Calcium 7.3 mg/dL (8.5-10.1); Potassium 3.2 mmol/L (3.5-5.1)
[2019-07-23 06:10] LABS: BUN/Creatinine Ratio 6.8; Bilirubin, Total 2.4 mg/dL (0.2-1.0); Total Protein 6.7 g/dL (6.4-8.2)
--- NOTE | 2019-07-23 07:28 | NUR ---
Opening shift note Assumed care of patient from noc shift rn. Patient is awake, alert and oriented. No signs or symptoms of distress or shortness of breath at this time, reports 9/10 pain but wants to wait to take PRN medication when it is due at 0915. Reviewed plan of care with patient, patient verbalized understanding. Bed in low and locked position, call light within reach. Will continue to monitor Q1 hour and PRN. patient verbalized she want to wait to talk to the MD and will sign consent downstairs before the EGD procedure.
[2019-07-23 08:00] VITALS: BP 112/67
[2019-07-23] MEDS: cefTRIAXone 1GM/50ML D5W 50 ML IV SCH (09:07)
[2019-07-23] MEDS: CHOLECALCIFEROL (VITD3) 1,000IU=25mCg TAB PO SCH (09:13)
[2019-07-23] MEDS: ZINC SULFATE 220mg CAP or TAB PO SCH (09:14)
[2019-07-23] MEDS: PANTOPRAZOLE 40 MG/10 ML VIAL INJ IV SCH ×2 (09:14→22:14)
[2019-07-23] MEDS: ASCORBIC ACID 1,000 MG TAB PO SCH (09:33)
[2019-07-23] MEDS ORDERED: fentaNYL CITRATE 100 MCG/2 ML VL ONE (11:44)
[2019-07-23] MEDS ORDERED: MIDAZOLAM HCL 1MG/1ML-2 ML VIAL ONE (11:44)
[2019-07-23] MEDS ORDERED: ONDANSETRON HCL 4 MG/2 ML VIAL ONE (11:45)
[2019-07-23] MEDS ORDERED: PROPOFOL 10 MG/ML 20 ML IV ONE (11:45)
[2019-07-23] MEDS ORDERED: PHYTONADIONE (VIT K)10 MG/ML 1ML VIAL SUBCUT ONE (12:15)
[2019-07-23] MEDS ORDERED: IRON SUCROSE COMPLEX 200 MG in SODIUM CHL 0.9% 100 ML IV SCH (12:15)
[2019-07-23] MEDS ORDERED: METOCLOPRAMIDE HCL 5MG/ml INJ 2ml VIAL IV PRN (12:30)
[2019-07-23] MEDS ORDERED: HYDROmorphone HCL 2 MG/ML VL IV PRN (12:30)
[2019-07-23] MEDS ORDERED: MORPHINE SULFATE 4 MG/ML SYR/VIAL IV PRN (12:30)
[2019-07-23] MEDS ORDERED: fentaNYL CITRATE 100 MCG/2 ML VL IV PRN (12:30)
[2019-07-23] MEDS: IRON SUCROSE COMPLEX 200 MG in SODIUM CHL 0.9% 100 ML IV SCH (14:31)
--- NOTE | 2019-07-23 16:55 | NUR ---
Spoke to Dr. Keene. Ordered to discontinue Spencer catheter and Stop NS fluid.
[2019-07-23 17:00] VITALS: BP_SYST 134; BP_SYST 99; BP_DIAS 61; BP_DIAS 66
[2019-07-23] MEDS: ACETAMINOPHEN 325 MG TAB PO PRN (17:15)
--- NOTE | 2019-07-23 18:40 | NUR ---
Spencer catheter discontinue, no s/s distress noted, patient able to void independently.
--- NOTE | 2019-07-23 19:00 | NUR ---
Opening Shift Note Assumed care of patient, awake and alert. No S/S of distress/SOB or pain. Instructed on POC and to call for assist PRN, will continue to monitor for changes Q1hr and PRN.
[2019-07-23 22:00] VITALS: BP 110/69
[2019-07-24] MEDS: MORPHINE SULFATE 4 MG/ML SYR/VIAL IV PRN ×3 (00:42→11:08)
[2019-07-24] MEDS: InsuLIN REG 1unit/0.01ml Soln (100units/ml) SC SCH ×4 (04:00→11:54)
[2019-07-24] MEDS: ACCU-CHEK COMFORT CURVE STRIP VI SCH ×4 (04:00→11:53)
[2019-07-24 05:00] VITALS: BP 109/65
[2019-07-24 05:50] LABS: Hematocrit 25.3 % (36.0-46.0); Hemoglobin 8.3 g/dL (12.2-16.2)
--- NOTE | 2019-07-24 07:25 | NUR ---
Opening Shift Note Assumed care of patient, awake, alert and oriented x4. No S/S of distress/SOB, reports 8-9/10 pain to right leg and requesting morphine PRN when it's due. Bed is in lowest and locked position with side rails up X2. Plan of care discussed, and advised to call for assist PRN, will continue to monitor for changes Q1hr and PRN.
[2019-07-24 08:00] VITALS: BP 102/58
[2019-07-24] MEDS: ACETAMINOPHEN 325 MG TAB PO PRN (08:49)
[2019-07-24 08:51] VITALS: BP 102/58
[2019-07-24] MEDS: PANTOPRAZOLE 40 MG/10 ML VIAL INJ IV SCH (09:41)
--- NOTE | 2019-07-24 09:49 | NUR ---
Pt is a 39 yo female that had several admissions due to alcohol abuse. Pt has been provided counseling resources for abuse on previous admissions but is not following through. Reiterated resources and strongly encouraged pt to utilize services. Also provided pt information on Advance Directives and DPOA. Pt not especially interested but agreed to receive information. Will continue to monitor and provide intervention as appropriate. Addendum: 07/24/19 at 0952 by LUCITA YANG Amended: Links added.
--- NOTE | 2019-07-24 09:50 | NUR ---
PATIENT'S TEMP DURING AM VITALS WAS 100.5 TYLENOL GIVEN AND COLD MEASURES INITIATED. TEMP WAS 98.9 WHEN REASSESSED AT 0949 WILL CONTINUE TO MONITOR AND PROVIDE COMFORT MEASURES.
[2019-07-24] MEDS: CHOLECALCIFEROL (VITD3) 1,000IU=25mCg TAB PO SCH (10:00)
[2019-07-24] MEDS ORDERED: PANT40TA2 PO (11:24)
[2019-07-24] MEDS ORDERED: ACET-1603 PO (11:24)
[2019-07-24] MEDS ORDERED: SUCR1SUS5 PO (11:24)
[2019-07-24] MEDS ORDERED: FERR-7 PO (11:24)
--- NOTE | 2019-07-24 11:55 | NUR ---
BOTH IV INFILTRATED. DISCHARGE PLAN INITIATED AT THIS TIME.
[2019-07-24] MEDS: IRON SUCROSE COMPLEX 200 MG in SODIUM CHL 0.9% 100 ML IV SCH (12:00)
[2019-07-24 12:44] VITALS: BP 96/53
--- NOTE | 2019-07-24 15:35 | NUR ---
PATIENT DISCHARGED AT THIS TIME PER MD'S ORDER. NEW PRESCRIPTION PICKED UP FROM [facility]. DISCHARGE AND FOLLOW UP INSTRUCTIONS GIVEN. PATIENT ALERT AND ORIENTED DURING DISCHARGE, VERBALIZED UNDERSTANDING OF INSTRUCTIONS. PERIPHERAL IV ACCESS DISCONTINUED, TELE BOX RETURNED TO ICU.
[2019-07-25] MEDS ORDERED: PNEUMOCOCCAL VACC POLYS 25 MCG/0.5 ML VIAL IM ONE (10:00)
[2019-07-25] MEDS ORDERED: HYDR-4833 PO (18:52)
== END 2019-07-24 15:35 | disposition home or self-care (01) | DRG 384 ==
LOC: EDBD 20:38 → ER 20:43 → TELE 20:44 → TELE-EAST 07-22 03:50 → TELE-CENTR 07-22 12:47
PROVIDERS: ADMIT Hospitalist; ATTEND Hospitalist
PROC: 30233N1 Transfusion of Nonautologous Red Blood Cells into Peripheral Vein, Percutaneous Approach (ICD-10-PCS; principal; 2019-07-22)
PROC: 0DJ08ZZ Inspection of Upper Intestinal Tract, Via Natural or Artificial Opening Endoscopic (ICD-10-PCS; 2019-07-23)
DX: S30.0XXA Contusion of lower back and pelvis, initial encounter (principal); J18.9 Pneumonia, unspecified organism; D68.9 Coagulation defect, unspecified; D69.6 Thrombocytopenia, unspecified; K76.6 Portal hypertension; D62 Acute posthemorrhagic anemia; W19.XXXA Unspecified fall, initial encounter; S33.5XXA Sprain of ligaments of lumbar spine, initial encounter; S73.101A Unspecified sprain of right hip, initial encounter; F10.20 Alcohol dependence, uncomplicated; R73.9 Hyperglycemia, unspecified; K20.9 Esophagitis, unspecified; F17.210 Nicotine dependence, cigarettes, uncomplicated; K31.89 Other diseases of stomach and duodenum; Z03.818 Encounter for observation for suspected exposure to other biological agents ruled out; Z80.8 Family history of malignant neoplasm of other organs or systems; K70.30 Alcoholic cirrhosis of liver without ascites; N39.0 Urinary tract infection, site not specified; K29.00 Acute gastritis without bleeding
CPT/HCPCS: 36415; 43235; 71045; 72131; 72192; 80048; 80053; 80307; 80320; 81001; 81025; 82270; 82728; 82962; 83036; 83615; 83735; 84484; 84702; 85014; 85018; 85025; 85379; 85610; 85730; 86850; 86900; 86901; 86920; 87070; 87086; 87804; 87880; 93005; 93970; 99291; C9113; G0378; J0696; J1756; J1815; J1885; J2250; J2405; J2704; J3430; J3480; J3490

== ENCOUNTER 2019-10-04 18:20 | Inpatient (IN) | payer MEDICAID ==
[~2019-10-04] VITALS: Ht 162.6 cm; Wt 66.5 kg
[~2019-10-04 18:20] MED LIST: FERR-7 PO; HYDR-4833 PO; PANT40TA2 PO; SUCR1SUS5 PO
[2019-10-04] MEDS ORDERED: ONDANSETRON HCL 4 MG/2 ML VIAL IV ONE (19:30)
[2019-10-04] MEDS ORDERED: MORPHINE SULFATE 4 MG/ML SYR/VIAL IV ONE (19:30)
[2019-10-04] MEDS ORDERED: ACETAMINOPHEN 325 MG TAB PO ONE ×3 (23:00→23:15)
[2019-10-04] MEDS ORDERED: SODIUM CHLORIDE 0.9% 3,000 ML IV ONE (23:00)
[2019-10-04 23:26] LABS: Hematocrit 29.7 % (36.0-46.0); Hemoglobin 10.3 g/dL (12.2-16.2); Mean Corpuscular Hemoglobin 32.1 pg (28.0-32.0); Mean Corpuscular Hgb Conc. 34.7 g/dL (32.0-36.0); Mean Corpuscular Volume 92.7 fL (80.0-100.0); Platelet Count (auto) 94 10^3/uL (140-450); Red Cell Distribution Width 15.3 % (11.8-14.3); White Blood Cell 6.6 10^3/uL (4.4-10.8)
[2019-10-04 23:41] LABS: Basophils % (manual) 0 (0.0-2.0); Blast Cells 0; Eosinophils % (manual) 0 (0-7); Metamyelocytes % 0; Myelocytes % 0; Promyelocytes % 0; Reactive Lymphocytes 0
[2019-10-04 23:47] LABS: INR 1.22 (0.9-1.15); Partial Thromboplastin Time 30.7 sec (23.64-32.05)
[2019-10-04 23:50] LABS: Albumin 3.2 g/dL (3.4-5.0); BUN/Creatinine Ratio 6.9; Calcium 8.4 mg/dL (8.5-10.1)
[2019-10-04 23:53] LABS: Bilirubin, Total 1.2 mg/dL (0.2-1.0); Total Protein 8.5 g/dL (6.4-8.2)
[2019-10-04 23:59] LABS: Potassium 2.6 mmol/L (3.5-5.1)
[2019-10-05 00:05] LABS: Urine Amorphous Crystal FEW /hpf (None Seen); Urine Bacteria MOD /hpf (None Seen); Urine Blood 1+ /uL (Negative); Urine Specific Gravity 1.005 (1.001-1.035); Urine WBC 9 /hpf (0 - 5)
[2019-10-05] MEDS ORDERED: POTASSIUM CHL 20MEQ/100ML 100 ML IV SCH (00:30)
[2019-10-05] MEDS: POTASSIUM CHL 20MEQ/100ML 100 ML IV SCH ×5 (00:40→16:40)
[2019-10-05] MEDS ORDERED: PANTOPRAZOLE 40mg/50ML NS AE 50 ML IV ONE (00:45)
[2019-10-05] MEDS ORDERED: PANTOPRAZOLE 40 MG/10 ML VIAL INJ IV ONE (00:45)
[2019-10-05 00:55] LABS: Band Neutrophils % (manual) 3
[2019-10-05 00:56] LABS: Lymphocytes % (manual) 24 (10.0-50.0); Monocytes % (manual) 15 (0-12)
[2019-10-05 02:22] LABS: Alcohol, Urine < 3.0 mg/dL (0-10); Amphetamine Screen, Urine NEGATIVE (NEGATIVE); Barbiturate Scree,Urine NEGATIVE (NEGATIVE); Benzodiazephine Screen, Urine NEGATIVE (NEGATIVE); Cannabinoid Screen, Urine NEGATIVE (NEGATIVE); Cocaine Screen, Urine NEGATIVE (NEGATIVE); Phencyclidine Screen, Urine NEGATIVE (NEGATIVE)
[2019-10-05] MEDS ORDERED: SODIUM CHLORIDE 0.9% 1,000 ML IV SCH (02:30)
[2019-10-05] MEDS ORDERED: ONDANSETRON HCL 4 MG/2 ML VIAL IV PRN (02:30)
[2019-10-05] MEDS ORDERED: NITROGLYCERIN 0.4 MG SL TAB SL PRN (03:00)
[2019-10-05] MEDS ORDERED: MORPHINE SULF INJ 2 MG/ML SYRINGE 1ML IV PRN (03:00)
[2019-10-05 03:02] LABS: Opiate Scree,Urine NEGATIVE (NEGATIVE)
[2019-10-05 03:03] LABS: Hematocrit 26.1 % (36.0-46.0); Hemoglobin 8.8 g/dL (12.2-16.2)
[2019-10-05 06:30] VITALS: BP 102/59
[2019-10-05 08:00] VITALS: BP 111/64
--- NOTE | 2019-10-05 08:27 | NUR ---
AUTOMOBILE APPRAISER HOSPITALIST PAGE OUT TO MD FOR ELEVATED D-DIMER. UNCLEAR IF MD AWARE PER YELENA GAUTAM.
--- NOTE | 2019-10-05 08:49 | NUR ---
PAIN PATIENT STATES ABDOMINAL PAIN RADIATING TO THE BACK, RATING IT 10/10. NO PRN AVAILABLE AT THIS TIME. AWAITING PRITI BACK FROM DIRECTOR OF SUPPLY CHAIN HOSPITALIST. HEAT PACK APPLIED TO ABDOMINAL AREA FOR RELIEF AT THIS TIME.
[2019-10-05 09:00] VITALS: BP 111/64
[2019-10-05] MEDS ORDERED: MORPHINE SULF INJ 2 MG/ML SYRINGE 1ML IV ONE (09:30)
[2019-10-05] MEDS: cefTRIAXone 1GM/50ML D5W 50 ML IV SCH (09:30)
--- NOTE | 2019-10-05 09:30 | NUR ---
NEW ORDERS RECEIVED FROM HEAT TREAT TECHNICIAN HOSPITALIST, DR YANCEY. REFER TO ORDER HX.
[2019-10-05] MEDS: PANTOPRAZOLE 40 MG/10 ML VIAL INJ IV SCH ×2 (09:48→20:58)
[2019-10-05 11:56] LABS: BUN/Creatinine Ratio 12.5; Calcium 7.2 mg/dL (8.5-10.1); Magnesium 1.6 mg/dL (1.6-2.6)
[2019-10-05 11:59] LABS: Potassium 2.8 mmol/L (3.5-5.1)
[2019-10-05] MEDS: POTASSIUM CHLORIDE 20 MEQ in D5W/LACTATED RINGERS 1,000 ML IV SCH ×2 (12:00→20:57)
--- NOTE | 2019-10-05 12:16 | NUR ---
DR BOLAÑOS CALL TO ATTENDING IN REGARDS OF CRITICAL LAB VALUE. DETAILED MESSAGE LEFT IN VOICEMAIL. AWAITING CALL BACK.
[2019-10-05 13:00] VITALS: BP 98/59
--- NOTE | 2019-10-05 13:00 | NUR ---
NEW ORDERS RECEIVED BY MD BOLAÑOS. REFER TO ORDER HX.
--- NOTE | 2019-10-05 14:30 | NUR ---
GI CONSULT DR. Chirag CRUZ AT [facility] SIDE
[2019-10-05] MEDS: SUCRALFATE 1 GM/10 ML ORAL SUSP PO SCH ×2 (16:41→20:58)
[2019-10-05 16:53] VITALS: BP 93/59
--- NOTE | 2019-10-05 17:45 | NUR ---
PAGE TO MD BOLAÑOS IN REGARDS OF PATIENT C/O PAIN 11/28 LOCALIZED TO ABDOMEN. NO PRN AVAILABLE. AWAITING CALL BACK.
--- NOTE | 2019-10-05 17:50 | NUR ---
NEW ORDERS RECEIVED MY MD BOLAÑOS VIA TELEPHONE, READ BACK AND VERIFIED. REFER TO ORDER HX. WILL IMPLEMENT.
[2019-10-05] MEDS: KETOROLAC TROMETH 30 MG/ML 1ML VIAL IV PRN (18:01)
[2019-10-05 21:40] LABS: Hematocrit 25.9 % (36.0-46.0); Hemoglobin 8.8 g/dL (12.2-16.2)
[2019-10-05 22:00] VITALS: BP 96/51
[2019-10-05] MEDS: HYDROcodone-ACET 5/325MG TAB PO PRN (22:11)
[2019-10-06 05:00] VITALS: BP 116/71
[2019-10-06 05:33] LABS: Hemoglobin 8.2 g/dL (12.2-16.2)
[2019-10-06 05:35] LABS: Hematocrit 23.3 % (36.0-46.0); Mean Corpuscular Hemoglobin 32.7 pg (28.0-32.0); Mean Corpuscular Volume 93.2 fL (80.0-100.0); Platelet Count (auto) 99 10^3/uL (140-450); Red Cell Distribution Width 15.7 % (11.8-14.3); White Blood Cell 5.3 10^3/uL (4.4-10.8)
[2019-10-06 05:41] LABS: Basophils % (manual) 0 (0.0-2.0); Blast Cells 0; Metamyelocytes % 0; Myelocytes % 0; Promyelocytes % 0; Reactive Lymphocytes 0
[2019-10-06 05:53] LABS: Potassium 3.5 mmol/L (3.5-5.1)
[2019-10-06 06:05] LABS: Albumin 2.2 g/dL (3.4-5.0); BUN/Creatinine Ratio 10.9; Bilirubin, Total 0.4 mg/dL (0.2-1.0); Calcium 7.3 mg/dL (8.5-10.1); Total Protein 6.1 g/dL (6.4-8.2)
[2019-10-06] MEDS: HYDROcodone-ACET 5/325MG TAB PO PRN ×2 (06:18→15:39)
[2019-10-06] MEDS: SUCRALFATE 1 GM/10 ML ORAL SUSP PO SCH ×4 (06:18→21:36)
[2019-10-06 08:00] VITALS: BP 110/72
[2019-10-06 08:43] LABS: Band Neutrophils % (manual) 2; Eosinophils % (manual) 1 (0-7); Lymphocytes % (manual) 32 (10.0-50.0); Monocytes % (manual) 17 (0-12)
[2019-10-06] MEDS: PANTOPRAZOLE 40 MG/10 ML VIAL INJ IV SCH ×2 (09:09→21:36)
[2019-10-06] MEDS: POTASSIUM CHLORIDE 20 MEQ in D5W/LACTATED RINGERS 1,000 ML IV SCH ×2 (09:09→18:24)
[2019-10-06] MEDS: cefTRIAXone 1GM/50ML D5W 50 ML IV SCH (09:09)
[2019-10-06 09:53] LABS: Hematocrit 23.6 % (36.0-46.0); Hemoglobin 8.1 g/dL (12.2-16.2)
[2019-10-06 12:00] VITALS: BP 109/67
[2019-10-06] MEDS: KETOROLAC TROMETH 30 MG/ML 1ML VIAL IV PRN ×2 (12:35→21:48)
[2019-10-06] MEDS: SODIUM FERR GLUC 62.5MG/5ML 125 MG in SODIUM CHL 0.9% 100 ML IV SCH (14:14)
[2019-10-06] MEDS ORDERED: GOLYTELY 4L KIT PO ONE (15:45)
[2019-10-06 17:00] VITALS: BP 118/71
--- NOTE | 2019-10-06 17:30 | NUR ---
CONSENT FOR COLONOSCOPY SIGNED. CONSENT PLACED IN CHART.
--- NOTE | 2019-10-06 19:25 | NUR ---
Opening Shift Note Received report from Sundeep RN. Assumed care of patient, awake and alert. No S/S of distress/SOB or pain. Instructed on POC and to call for assist PRN, will continue to monitor for changes Q1hr and PRN.
[2019-10-06 20:00] VITALS: BP 126/84
[2019-10-06 22:00] VITALS: BP 126/84
--- NOTE | 2019-10-06 23:55 | NUR ---
Advised nothing by mouth after midnight for Colonoscopy tomorrow, patient verbalized understanding.
[2019-10-07] MEDS: HYDROcodone-ACET 5/325MG TAB PO PRN (00:58)
[2019-10-07] MEDS: POTASSIUM CHLORIDE 20 MEQ in D5W/LACTATED RINGERS 1,000 ML IV SCH ×2 (04:30→13:20)
[2019-10-07 05:00] VITALS: BP 103/72
[2019-10-07] MEDS ORDERED: GOLYTELY 4L KIT PO ONE (06:00)
[2019-10-07] MEDS ORDERED: MAGNESIUM CITRATE SOLUTION 300 ML BTL PO ONE (06:00)
[2019-10-07] MEDS: SUCRALFATE 1 GM/10 ML ORAL SUSP PO SCH ×2 (06:56→11:30)
[2019-10-07 08:00] VITALS: BP 118/74
--- NOTE | 2019-10-07 08:00 | NUR ---
OPENING SHIFT NOTE ASSUMED CARE OF PATIENT AWAKE AND ALERT. NO S/S OF DISTRESS NOTED. PATIENT UPDATED ON POC FOR THE DAY AND ALL QUESTIONS ANSWERED. BED IS IN LOWEST, LOCKED POSITION WITH SIDE RAILS UP X2 AND CALL LIGHT WITHIN REACH. WILL CONTINUE TO MONITOR Q1H AND PRN.
[2019-10-07] MEDS ORDERED: SODIUM CHLORIDE LOCK 10 ML ONE (09:41)
[2019-10-07] MEDS: cefTRIAXone 1GM/50ML D5W 50 ML IV SCH (09:49)
[2019-10-07] MEDS: PANTOPRAZOLE 40 MG/10 ML VIAL INJ IV SCH (09:49)
[2019-10-07] MEDS: MIDAZOLAM HCL 5 MG/ML-1ML VIAL ONE ×3 (11:32→11:38)
[2019-10-07] MEDS: fentaNYL CITRATE 100 MCG/2 ML VL ONE ×3 (11:32→11:38)
[2019-10-07] MEDS: diphenhdrAMINE HCL 50 MG/1 ML VL ONE ×2 (11:34→11:38)
--- NOTE | 2019-10-07 11:42 | NUR ---
Est energy needs 8488-2027 kcal (27-30 kcal/kg BW 66.5kg) Est protein need 53-67g (0.8-1g/kg BW 66.5kg) Will reassess prn. Addendum: 10/07/19 at [address] Amended: Links added.
[2019-10-07 12:25] VITALS: BP 105/74
[2019-10-07] MEDS: SODIUM FERR GLUC 62.5MG/5ML 125 MG in SODIUM CHL 0.9% 100 ML IV SCH (13:19)
[2019-10-07] MEDS ORDERED: PHENSUP38 PR (13:45)
[2019-10-07] MEDS ORDERED: CIPR-173 PO (13:45)
--- NOTE | 2019-10-07 14:08 | NUR ---
PRESCRIPTION RECEIVED ORDER TO CALL IN IBUPROFEN PRESCRIPTION FOR PATIENT TO [facility] ON [address]. THIS NURSE WAS PROMPTED TO LEAVE A MESSAGE WITH PRESCRIPTION AND PRESCRIBER INFORMATION. CALL BACK NUMBER PROVIDED. WILL FOLLOW UP.
== END 2019-10-07 16:00 | disposition home or self-care (01) | DRG 254 ==
LOC: EDBD 18:20 → ER 18:20 → TELE 18:21 → TELE-CENTR 10-05 06:20
PROVIDERS: ADMIT Nurse Practitioner; ATTEND Hospitalist
PROC: 0DBE8ZX Excision of Large Intestine, Via Natural or Artificial Opening Endoscopic, Diagnostic (ICD-10-PCS; 2019-10-07)
PROC: 0DBP8ZX Excision of Rectum, Via Natural or Artificial Opening Endoscopic, Diagnostic (ICD-10-PCS; principal; 2019-10-07 11:30)
DX: K64.8 Other hemorrhoids (principal); K62.89 Other specified diseases of anus and rectum; E87.6 Hypokalemia; K86.1 Other chronic pancreatitis; N39.0 Urinary tract infection, site not specified; K57.90 Diverticulosis of intestine, part unspecified, without perforation or abscess without bleeding; F17.210 Nicotine dependence, cigarettes, uncomplicated; D63.8 Anemia in other chronic diseases classified elsewhere; K21.9 Gastro-esophageal reflux disease without esophagitis; Z79.899 Other long term (current) drug therapy; Z80.9 Family history of malignant neoplasm, unspecified; Z83.3 Family history of diabetes mellitus; Z03.818 Encounter for observation for suspected exposure to other biological agents ruled out
CPT/HCPCS: 36415; 45380; 74176; 76830; 76856; 80048; 80053; 80307; 81001; 82270; 82728; 83605; 83615; 83690; 83735; 84702; 85007; 85014; 85018; 85027; 85379; 85610; 85730; 86850; 86900; 86901; 87040; 93005; 96365; 96366; 96368; 96375; C9113; G0378; J0696; J1756; J1885; J2250; J2405; J3480

== ENCOUNTER 2024-06-02 00:44 | Inpatient (IN) | payer MEDICAID ==
[2024-06-02] VITALS (7 sets, daily range): BP systolic 104–116; BP diastolic 55–81; PULSE 68–86; RESP 16–18; TEMP 97.7–99.9; O2SAT 98–100
[~2024-06-02] VITALS: Ht 160 cm; Wt 59.0 kg
[~2024-06-02 00:44] MED LIST changes: +CIPR-173 PO; +PHENSUP38 PR
[2024-06-02 01:53] LABS: Basophils # (auto) 0 10 ^3/uL (0-0.2); Basophils % (auto) 1.1 % (0.0-2.0); Eosinophils # (auto) 0 10 ^3/uL (0-0.8); Hematocrit 25.6 % (36.0-46.0); Lymphocytes # (auto) 1.4 10 ^3/uL (0.4-5.4); Lymphocytes % (auto) 36.6 % (10.0-50.0); Mean Corpuscular Hemoglobin 32.6 pg (28.0-32.0); Mean Corpuscular Hgb Conc. 35.3 g/dL (32.0-36.0); Mean Corpuscular Volume 92.5 fL (80.0-100.0); Monocytes # (auto) 0.4 10 ^3/uL (0-1.3); Monocytes % (auto) 12.1 % (0.0-12.0); Neutrophils # (auto) 1.8 10 ^3/uL (1.6-8.6); Neutrophils % (auto) 49.2 % (37.0-80.0); Nucleated Red Blood Cells % 0.1 %; Platelet Count (auto) 289 10^3/uL (140-450); Red Blood Cells 2.77 10^6/uL (4.0-5.20); White Blood Cell 3.7 10^3/uL (4.4-10.8)
[2024-06-02 02:03] LABS: Anion Gap 5 (5-15); BUN/Creatinine Ratio 16.7 (10.0-20.0); Carbon Dioxide 30 mmol/L (20-31); Chloride 106 mmol/L (98-107); Sodium 141 mmol/L (136-145)
[2024-06-02 02:06] LABS: Alanine Aminotransferase 55 U/L (7-40); Albumin 2.6 g/dL (3.2-4.8); Alkaline Phosphatase 805 U/L (46-116); Aspartate Aminotransferase 47 U/L (13-40); Bilirubin, Total 0.2 mg/dL (0.2-1.0); Blood Urea Nitrogen 7 mg/dL (9-23); Glucose 145 mg/dL (74-106); Lipase 11 U/L (12-53); Potassium 3.4 mmol/L (3.5-5.1)
--- NOTE | 2024-06-02 02:34 | ED.PDOC ---
Musculoskeletal HPI Comments This patient is a 44-year-old female who arrives the ED today via EMS due to complaints of bilateral lower extremity swelling concerns for the past day. Patient is currently residing in a nursing home facility after having been admitted at [facility] for unknown causes. Additional information glean from the patient encounter was an inability to walk and ambulate without a walker. Patient can not tell me why she can not walk without assistance. Vital signs were stable on arrival. Chief Complaint: Lower Extremity Time Seen by MD: 00:49 Primary Care Provider: ROMEL Reviewed Notes: Nurses Notes, Manager Business Operations Notes Allergies: Coded Allergies: NO KNOWN ALLERGIES (Unverified , 03/06/18) Home Meds Active Scripts Ciprofloxacin Hcl (Cipro) 500 Mg Tab, 1 TAB PO BID, #10 TAB Prov:SHANON MCINTOSH MD 10/07/19 Phenylephrine-Shark Liver Oil- (Hemorrhoidal Suppositorie 0.25-3-85.5 %) 1 Sup Sup, 1 SUP CO DAILY, #20 SUPP Prov:SHANON MCINTOSH MD 10/07/19 Hydrocodone-Acetaminophen ([place] 5/325MG) 1 Tab Tb, 1 TAB PO TID PRN, #21 TAB Prov:SHANON MCINTOSH MD 07/25/19 Sucralfate (Carafate) 1 Gm/10 Ml Mary, 10 ML PO BID, #120 ML 1 Refill Prov:SHAONN MCINTOSH MD 07/24/19 Ferrous Sulfate (Iron) 325 Mg Tab, 325 MG PO MWF, #20 TAB Prov:SHANON MCINTOSH MD 07/24/19 Pantoprazole Sodium Sesquihydr (Protonix) 40 Mg Tab, 40 MG PO DAILY, #30 TAB Prov:SHANON MCINTOSH MD 07/24/19 Information Source: Patient, Emergency Med Personnel Mode of Arrival: EMS Location: Bilateral Extremity Location: Leg Timing: Hours Prehospital treatment: None Severity: Moderate Able to Move Extremity: Yes Bear Weight: Limited Pain: Moderate Hand Dominance: Right Mechanism: Spontaneous Circumstances: Spontaneous Onset of Symptoms: Spontaneous Symptoms: Swelling, Pain DVT Risk Factors: NONE Past Medical History PAST MEDICAL HISTORY: Anemia, Gallstones Surgical History: Denies all surgeries BLEACHING SUPERVISOR History: No Pertinent BLEACHING SUPERVISOR History Family History Family History: Family hx of DM, Family hx of Cancer Social History Smoker: Cigarettes Alcohol: Denies ETOH Use, Sober Drugs: Denies Drug Use Lives In: Homeless Constitutional: denies: chills, diaphoresis, fatigue, fever, malaise, sweats, weakness, others EENTM: denies: blurred vision, double vision, ear bleeding, ear discharge, ear drainage, ear pain, ear ringing, eye pain, eye redness, hearing loss, mouth pain, mouth swelling, nasal discharge, nose bleeding, nose congestion, nose pain, photophobia, tearing, throat pain, throat swelling, voice changes, others Respiratory: denies: cough, hemoptysis, orthopnea, SOB at rest, shortness of breath, SOB with excertion, stridor, wheezing, others Cardiovascular: denies: chest pain, dizzy spells, diaphoresis, Dyspnea on exertion, edema, irregular heart beat, left arm pain, lightheadedness, palpitations, PND, syncope, others Gastrointestinal: denies: abdomen distended, abdominal pain, blood streaked bowels, constipated, diarrhea, dysphagia, difficulty swallowing, hematemesis, melena, nausea, poor appetite, poor fluid intake, rectal bleeding, rectal pain, vomiting, others Genitourinary: denies: abnormal vagina bleeding, burning, dyspareunia, dysuria, flank pain, frequency, hematuria, incontinence, pain, , vagina discharge, urgency, others Neurological: denies: dizziness, fainting, headache, left sided numbness, left sided weakness, numbness, paresthesia, pre-existing deficit, right sided numbness, right sided weakness, seizure, speech problems, tingling, tremors, weakness, others Musculoskeletal: reports: others (Bilateral lower extremity swelling and weakness); denies: back pain, gout, joint pain, joint swelling, muscle pain, muscle stiffness, neck pain Integumetry: denies: bruises, change in color, change in hair/nails, dryness, laceration, lesions, lumps, rash, wounds, others Allergic/Immunocompromised: denies: Difficulty Healing, Frequent Infections, Hives, Itching, others Hematologic/Lymphatic: denies: anemia, blood clots, easy bleeding, easy bruising, swollen glands, others Physical Exam General Appearance: Moderate Distress ( [id number] distress due to her bilateral lower extremity concerns. Patient appears to be in poor overall health and additionally, patient displays an unknown psychosis concern.), Normal HEENT: Normal ENT Inspection, Pharynx Normal, TMs Normal Neck: Full Range of Motion, Non-Tender, Normal, Normal Inspection Respiratory: Chest Non-Tender, Lungs Clear, No Accessory Muscle Use, No Respiratory Distress, Normal Breath Sounds Cardiovascular: No Edema, No JVD, No Murmur, No Gallop, Normal Peripheral Pulses, Regular Rate/Rhythm Breast Exam: Deferred Gastrointestinal: No Organomegaly, Non Tender, No Pulsatile Mass, Normal Bowel Sounds, Soft Genitalia: Deferred Pelvic: Deferred Rectal: Deferred Extremities: Other ( Patient displays 2+ pitting edema to bilateral lower extremities from the mid calf down to the feet. Weakness displayed in bilateral lower extremities as well. No signs of trauma.) Neurologic: NOT DONE Cerebellar Function: NOT DONE Reflexes: NOT DONE Skin: Dry, Normal Color, Warm Lymphatic: No Adenopathy Was a procedure done? Was a procedure done?: No Differential Diagnosis EXT Differential Diagnosis: Other ( Lower extremity weakness, peripheral edema, CHF, neuropathy) X-Ray, Labs, Meds, VS Vital Signs Date Time Temp Pulse Resp B/P (MAP) Pulse Ox O2 Delivery O2 Flow Rate FiO2 06/02/24 01:31 80 17 100 Room Air* 0 21 06/02/24 01:31 98.2 80 17 99/65 (76) 100 98.2 06/02/24 00:46 97.8 72 16 117/82 (94) 100 97.8 Lab Test 06/02/24 01:33 Range/Units White Blood Count 3.7 L 4.4-10.8 10^3/uL Red Blood Count 2.77 L 4.0-5.20 10^6/uL Hemoglobin 9.0 L 12.2-16.2 g/dL Hematocrit 25.6 L 36.0-46.0 % Mean Corpuscular Volume 92.5 80.0-100.0 fL Mean Corpuscular Hemoglobin 32.6 H 28.0-32.0 pg Mean Corpuscular Hemoglobin Concent 35.3 32.0-36.0 g/dL Red Cell Distribution Width 19.0 H 11.8-14.3 % Platelet Count 289 140-450 10^3/uL Mean Platelet Volume 6.5 L 6.9-10.8 fL Neutrophils (%) (Auto) 49.2 37.0-80.0 % Lymphocytes (%) (Auto) 36.6 10.0-50.0 % Monocytes (%) (Auto) 12.1 H 0.0-12.0 % Eosinophils (%) (Auto) 1.0 0.0-7.0 % Basophils (%) (Auto) 1.1 0.0-2.0 % Neutrophils # (Auto) 1.8 1.6-8.6 10 ^3/uL Lymphocytes # (Auto) 1.4 0.4-5.4 10 ^3/uL Monocytes # (Auto) 0.4 0-1.3 10 ^3/uL Eosinophils # (Auto) 0 0-0.8 10 ^3/uL Basophils # (Auto) 0 0-0.2 10 ^3/uL Nucleated Red Blood Cells 0.1 % Sodium Level 141 136-145 mmol/L Potassium Level 3.4 L 3.5-5.1 mmol/L Chloride Level 106 98-107 mmol/L Carbon Dioxide Level 30 20-31 mmol/L Anion Gap 5 5-15 Blood Urea Nitrogen 7 L 9-23 mg/dL Creatinine 0.42 L 0.550-1.02 mg/dL Glomerular Filtration Rate Calc 125 >90 mL/min BUN/Creatinine Ratio 16.7 10.0-20.0 Serum Glucose 145 H 74-106 mg/dL Calcium Level 8.0 L 8.7-10.4 mg/dL Total Bilirubin 0.2 0.2-1.0 mg/dL Aspartate Amino Transferase (AST) 47 H 13-40 U/L Alanine Aminotransferase (ALT) 55 H 7-40 U/L Alkaline Phosphatase 805 H 46-116 U/L Troponin I High Sensitivity < 3 L </=34 ng/L B-Type Natriuretic Peptide 72.75 0-100 pg/mL Total Protein 5.0 L 5.7-8.2 g/dL Albumin 2.6 L 3.2-4.8 g/dL Lipase 11 L 12-53 U/L X-Ray, Labs, Meds, VS Comment All studies performed the ED were evaluated by me personally. Urinalysis and test were pending at time of this note. Patient's laboratories revealed an anemia, thrombocytopenia as well as a significantly elevated alk- phos. Imaging studies were pending at time of this note. Patient will be admitted for bilateral lower extremity weakness and should receive a neurology consultation as well as any additional intervention required after evaluating CT studies. Time of 1ST Reevaluation: 02:33 Reevaluation 1ST: Unchanged Consultation: PCP, Psychiatry Patient Education/Counseling: Diagnosis, Treatment Family Education/Counseling: Diagnosis, Treatment Departure 1 Departure Time of Disposition: 02:33 Impression: Primary Impression: Weakness Additional Impressions: Elevated alkaline phosphatase level Anemia Peripheral edema Disposition: ADMITTED INPATIENT Condition: Fair Discharged With: Self Critical Care Note Critical Care Time?: No Stability Stability form required: No Heart Score Heart Score: Heart Score Response (Comments) Value History N/A 0 EKG N/A 0 Age N/A 0 Risk Factors N/A 0 Troponin N/A 0 Total 0 REY MILES PAC Jun 02, 2024 02:34
[2024-06-02] MEDS: KETOROLAC TROMETH 60MG/2ML VIAL IM ONE (02:36)
[2024-06-02] MEDS ORDERED: DOCUSATE SOD 100 MG CAP PO PRN (03:15)
[2024-06-02] MEDS ORDERED: ONDANSETRON HCL 4 MG/2 ML VIAL IV PRN (03:15)
[2024-06-02] MEDS: CALCIUM GLUC 1,000mg/50ml-NS 50 ML IV ONE (03:23)
[2024-06-02 03:43] LABS: Urine Bacteria None Seen /hpf (None Seen)
[2024-06-02 03:56] LABS: Urine Blood Negative /uL (Negative); Urine Clarity Turbid (Clear); Urine Color Light-Yellow (Yellow); Urine Protein, UAD Negative (Negative); Urine Specific Gravity 1.015 (1.001-1.035); Urine Squamous Epithelial Cell FEW /hpf (<5); Urine Urobilinogen Normal (Negative); Urine WBC 9 /HPF (0-5)
[2024-06-02] MEDS ORDERED: NITROGLYCERIN 0.4 MG SL TAB SL PRN (04:45)
[2024-06-02] MEDS ORDERED: MORPHINE SULFATE INJ 2 MG/ml SYRG IV PRN (04:45)
--- NOTE | 2024-06-02 04:47 | DVHHP2 ---
History of Present Illness Reason for Visit: Generalized weakness History of Present Illness Patient is a 44-year-old female with multiple past medical history including anemia, liver disease, EtOH, and portal hypertension presented to [facility] ED with complaint of generalized weakness and bilateral lower extremity swelling. Patient reports she has been unable to ambulate without a walker or with assistance. Patient was seen and evaluated in the ED, laboratory data shows WBC 3.7, hemoglobin 9.0, hematocrit 25.6, platelets 289, sodium 141, potassium 3.4, BUN 7, creatinine 0.42, GFR 125, glucose 145, AST 47, ALT 55, lipase 11, albumin 2.6, BNP 72.75, troponin 3, calcium 8.0, blood pressure 99/65, heart rate 80, temperature 98.2 F, O2 saturation 99% on room air. Lower extremity ultrasound results pending. Please see medication orders section in the computer. On my assessment, patient denies chest pain, no headache, no dizziness, no diaphoresis, no shortness of breath, no nausea, no vomiting, no fever, no chills. Patient was admitted for further evaluation and medical management. Past Medical History Anemia, EtOH, Liver disease, Chronic pancreatitis, Rectal bleed, Portal hypertension, GERD, Gastropathy. Past Surgical History Colonoscopy with biopsy Family History Reviewed, noncontributory to the management of this case. Past Social History Patient lives at detention facility, smokes cigarettes, sober EtOH, denies illicit drugs abuse. Review of Systems Constitutional: Yes: Weakness; No: Fever, Chills, Sweats, Malaise, Other Eyes: No: Pain, Vision change, Conjunctivae inflammation, Eyelid inflammation, Other, Redness ENT: No: Ear pain, Ear discharge, Nose pain, Nose discharge, Nose congestion, Mouth pain, Mouth swelling, Throat pain, Throat swelling, Other Respiratory: No: Cough, Dry, Shortness of breath, SOB with excertion, Wheezing, Hemoptysis, Pleuritic Pain, Sputum, Wheezing, Other Cardiovascular: No: Chest Pain, Palpitations, Orthopnea, Paroxysmal Noc. Dyspnea, Edema, Lt Headedness, Other Gastrointestinal: No: Nausea, Vomiting, Abdominal Pain, Diarrhea, Constipation, Melena, Hematochezia, Other Genitourinary: No Dysuria, No Frequency, No Incontinence, No Hematuria, No Retention, No Other Musculoskeletal: other (Bilateral lower extremity swelling and weakness.); No: neck pain, shoulder pain, arm pain, back pain, hand pain, leg pain, foot pain Skin: No: Rash, Lesions, Jaundice, Bruising, Other Neurological: No: Weakness, Numbness, Incoordination, Change in speech, Confusion, Seizures, Other Allergies: Coded Allergies: NO KNOWN ALLERGIES (Unverified , 03/06/18) Medications Current Medications Medications Dose Ordered Sig/Barbie Route Start Time Stop Time Status Last Admin Dose Admin Sodium Chloride 10 ml Q8HR IV 06/02/24 06:00 Acetaminophen/ Hydrocodone Bitart 1 tab Q4HP PRN PO 06/02/24 03:15 Ondansetron HCl 4 mg Q4HP PRN IV 06/02/24 03:15 Docusate Sodium 100 mg BIDPRN PRN PO 06/02/24 03:15 Acetaminophen 650 mg Q6HP PRN PO 06/02/24 03:15 Exam Vital Signs Vital Signs Date Time Temp Pulse Resp B/P (MAP) Pulse Ox O2 Delivery O2 Flow Rate FiO2 06/02/24 03:15 98.0 79 17 118/79 (92) 99 98.0 06/02/24 03:10 Room Air* 0 21 General Appearance: Alert, Oriented X3, Cooperative, No acute distress HEENT: Atraumatic, PERRLA, EOMI, Mucous membr. moist/pink Respiratory: Normal air movement Cardiovascular: Regular rate, Normal S1, Normal S2, No murmurs Abdominal: Normal bowel sounds, Soft, No tenderness, No hepatospenomegaly, No masses Extremities: No clubbing, No cyanosis, No edema, Normal pulses, Other (Lower extremity swelling) Skin: No rashes, No breakdown, No significant lesion Neuro: Normal speech, Normal tone, Sensation intact, Cranial nerves 3-12 NL, Reflexes 2+, Other (Generalized weakness) Psych/Mental Status: Mental status NL, Mood NL Labs/Xrays Labs Test 06/02/24 03:05 06/02/24 01:33 Range/Units Urine Color Light-yellow Yellow Urine Clarity Turbid H Clear Urine pH 7.0 5.0-9.0 Urine Specific [place] 1.015 1.001-1.035 Urine Protein Negative Negative Urine Ketones Negative Negative Urine Blood Negative Negative /uL Urine Nitrite Negative Negative Urine Bilirubin Negative Negative Urine Urobilinogen Normal Negative mg/dL Urine Leukocyte Esterase Negative Negative /uL Urine RBC 25 0 - 4 /hpf Urine Microscopic WBC 9 H 0-5 /HPF Urine Squamous Epithelial Cells Few <5 /hpf Urine Bacteria None seen None Seen /hpf Urine Glucose 1+ H Normal mg/dL Urine Test Negative Negative White Blood Count 3.7 L 4.4-10.8 10^3/uL Red Blood Count 2.77 L 4.0-5.20 10^6/uL Hemoglobin 9.0 L 12.2-16.2 g/dL Hematocrit 25.6 L 36.0-46.0 % Mean Corpuscular Volume 92.5 80.0-100.0 fL Mean Corpuscular Hemoglobin 32.6 H 28.0-32.0 pg Mean Corpuscular Hemoglobin Concent 35.3 32.0-36.0 g/dL Red Cell Distribution Width 19.0 H 11.8-14.3 % Platelet Count 289 140-450 10^3/uL Mean Platelet Volume 6.5 L 6.9-10.8 fL Neutrophils (%) (Auto) 49.2 37.0-80.0 % Lymphocytes (%) (Auto) 36.6 10.0-50.0 % Monocytes (%) (Auto) 12.1 H 0.0-12.0 % Eosinophils (%) (Auto) 1.0 0.0-7.0 % Basophils (%) (Auto) 1.1 0.0-2.0 % Neutrophils # (Auto) 1.8 1.6-8.6 10 ^3/uL Lymphocytes # (Auto) 1.4 0.4-5.4 10 ^3/uL Monocytes # (Auto) 0.4 0-1.3 10 ^3/uL Eosinophils # (Auto) 0 0-0.8 10 ^3/uL Basophils # (Auto) 0 0-0.2 10 ^3/uL Nucleated Red Blood Cells 0.1 % Sodium Level 141 136-145 mmol/L Potassium Level 3.4 L 3.5-5.1 mmol/L Chloride Level 106 98-107 mmol/L Carbon Dioxide Level 30 20-31 mmol/L Anion Gap 5 5-15 Blood Urea Nitrogen 7 L 9-23 mg/dL Creatinine 0.42 L 0.550-1.02 mg/dL Glomerular Filtration Rate Calc 125 >90 mL/min BUN/Creatinine Ratio 16.7 10.0-20.0 Serum Glucose 145 H 74-106 mg/dL Calcium Level 8.0 L 8.7-10.4 mg/dL Total Bilirubin 0.2 0.2-1.0 mg/dL Aspartate Amino Transferase (AST) 47 H 13-40 U/L Alanine Aminotransferase (ALT) 55 H 7-40 U/L Alkaline Phosphatase 805 H 46-116 U/L Troponin I High Sensitivity < 3 L </=34 ng/L B-Type Natriuretic Peptide 72.75 0-100 pg/mL Total Protein 5.0 L 5.7-8.2 g/dL Albumin 2.6 L 3.2-4.8 g/dL Lipase 11 L 12-53 U/L Assessment/Plan Assessment/Plan Generalized weakness Anemia, unspecified Electrolyte imbalance Liver disease Bilateral lower extremity edema Plan 1. Admit to telemetry unit 2. Breathing treatment 3. Pain control management 4. Management of fluids and electrolytes 5. Consultation for hospitalist 6. Diagnostic tests lower extremity ultrasound 7. DVT prophylaxis-on Lovenox 8. Repeat labs CBC, CMP in a.m. 9. Continue with current medical management 10. Treatment plan discussed with patient and RN. Patient verbalized holger coely. Plan discussed with: Patient, Other (RN) My Orders Orders - VALENTIN SADLER DNP Procedure Category Date Status Time Allergies GISELLE 06/02/24 In Process 03:05 Code Status CODE 06/02/24 Transmitted 03:05 Sodium Chloride Lock PHA 06/02/24 In Process (Saline Lock Ns) 06:00 Oxygen Per Hour RT 06/02/24 Transmitted 03:05 Hydrocodone-Acet PHA 06/02/24 In Process 5/325mg Tab ([place] 03:15 Ondansetron Hcl PHA 06/02/24 In Process (Zofran) 03:15 Docusate Sodium PHA 06/02/24 In Process Capsule (Colace 03:15 Complete Blood Count LAB 06/03/24 Verified 04:00 Comprehensive LAB 06/03/24 Verified Metabolic Panel 04:00 Cardiac DIET 06/02/24 Transmitted Diet-2gna,Lofat,Lochol Breakfast Condition: Serious GISELLE 06/02/24 In Process 03:05 Acetaminophen Tablet PHA 06/02/24 In Process (Tylenol Tablet) 03:15 Bedrest With Bathroom GISELLE 3/15/25 In Process Privileg 03:05 Sequential GISELLE 06/02/24 In Process Compression Device Type And Screen BBK 06/02/24 In Process 03:05 Albumin Ivpb PHA 06/02/24 Verified 04:45 Problem List: (1) Generalized weakness (2) Electrolyte imbalance (3) Anemia, unspecified (4) Liver disease (5) Bilateral lower extremity edema Date of Service: Jun 02, 2024 Billing Provider: VALENTIN SADLER DNP Common Visit Codes: 28860-LQUOTSG INP/OBS CARE (HIGH) VALENTIN SADLER DNP Jun 02, 2024 04:47
[2024-06-02] MEDS: POTASSIUM CHL 20 Meq TABLET PO ONE (04:55)
[2024-06-02] MEDS: ALBUMIN 25% 100 ML IV ONE (04:56)
--- NOTE | 2024-06-02 05:14 | DVH ---
Exam: CT CT AB PEL WO CON-NO ORAL OR IV History: Elevated labs Comparison Study: CT ABD PELVIS WO CONTRAST on DOS: 10/04/19 Technique: Multidetector spiral CT of the abdomen was performed from lung bases to pubic symphysis. I maging was performed without IV contrast. Axial, coronal and sagittal multiplanar reformats were obta ined from the axial data set by the technologist. Radiation Dose : 1. Abdomen/Pelvis: CTDIvol 5 mGy, DLP 112 mGy*cm. Findings: Evaluation of solid organs is limited due to lack of intravenous contrast use. Lung Bases: Dependent atelectasis. Liver: The liver is normal in size. No focal lesions. Gallbladder and Biliary Tree: Unremarkable Spleen: Unremarkable Pancreas: Diffuse coarse calcifications throughout the pancreas suggestive of chronic pancreatitis. Adrenal Glands: Unremarkable Kidneys: Kidneys are grossly normal without calculi or hydronephrosis. Bladder: Grossly unremarkable for degree of distention. Bowel: Distended stomach. Moderate volume colonic stool. The appendix is not visualized; however, no secondary findings of acute appendicitis identified. Ascites: Absent Lymphadenopathy: No mesenteric, retroperitoneal or periportal lymphadenopathy. Abdominal Wall and Mesentery: Diffuse body wall edema. Vasculature: The visualized abdominal aorta is normal in size and caliber. Evaluation of abdominal a nd pelvic vessels is limited due to lack of intravenous contrast. Pelvic Organs: Unremarkable Musculoskeletal: No aggressive focal bony lesions, acute fractures or dislocation. IMPRESSION: Severely distended stomach. Moderate volume colonic stool. Changes of chronic pancreatitis. Diffuse body wall edema. Radiation optimization: All CT scans at this facility use at least one of these dose optimization misty hniques: automated exposure control mA and/or kV adjustment per patient size (includes targeted exam s where dose is matched to clinical indication) or iterative reconstruction.
[2024-06-02] MEDS: DOCUSATE SOD 100 MG CAP PO ONE (05:55)
[2024-06-02] MEDS: SODIUM CHLOR 0.9% PF (SALINE LOCK) 10ML VIAL/SYR IV SCH (05:55)
--- NOTE | 2024-06-02 09:06 | DVH ---
EXAM: US Duplex Bilateral Lower Extremities Veins CLINICAL INDICATION: Bilateral lower extremity edema TECHNIQUE: Real-time duplex ultrasound scan of the bilateral lower extremity veins integrating B-mod e two-dimensional vascular structure, Doppler spectral analysis, color flow Doppler imaging and compr ession. COMPARISON: VENOUS DVT BILAT on DOS: 07/22/19 FINDINGS: RIGHT DEEP VEINS: Unremarkable. No DVT in the right common femoral, femoral, proximal deep femoral or popliteal veins. The veins demonstrate normal color flow, are normally compressible, with normal phasic flow and/or augmentation response. RIGHT SUPERFICIAL VEINS: Unremarkable. No thrombus in the visualized right great saphenous vein. LEFT DEEP VEINS: Unremarkable. No DVT in the left common femoral, femoral, proximal deep femoral o r popliteal veins. The veins demonstrate normal color flow, are normally compressible, with normal p hasic flow and/or augmentation response. LEFT SUPERFICIAL VEINS: Unremarkable. No thrombus in the visualized left great saphenous vein. SOFT TISSUES: No acute findings. No popliteal cyst. OTHER FINDINGS: . None. IMPRESSION: No DVT.
[2024-06-02] MEDS ORDERED: GABA300T4 PO (09:21)
[2024-06-02] MEDS ORDERED: INSLANTI SC (09:21)
[2024-06-02] MEDS ORDERED: ZINC100T2 PO (09:21)
[2024-06-02] MEDS ORDERED: TRAZ150T84 PO (09:21)
[2024-06-02] MEDS: ENOXAPARIN SOD 40 MG/0.4 ML SYRINGE SC SCH (09:32)
[2024-06-02] MEDS: FAMOTIDINE (10MG/ML) 2ML VL IV SCH (09:32)
[2024-06-02] MEDS: MULTIPLE VITAMINS W/ MINERALS TAB PO SCH (09:33)
[2024-06-02] MEDS: HYDROcodone-ACET 5/325MG TAB PO PRN (09:33)
[2024-06-02] MEDS: traZODone HCL 50 MG TAB PO SCH (21:20)
[2024-06-03 05:00] VITALS: BP_SYST 120; BP_SYST 132; BP_DIAS 61; BP_DIAS 70; PULSE 67; PULSE 72; RESP 19; TEMP 97.5; TEMP 97.8; O2SAT 100; O2SAT 99
[2024-06-03 07:18] LABS: Basophils # (auto) 0 10 ^3/uL (0-0.2); Eosinophils # (auto) 0.1 10 ^3/uL (0-0.8); Hemoglobin 8.2 g/dL (12.2-16.2); Lymphocytes # (auto) 1.1 10 ^3/uL (0.4-5.4); Monocytes # (auto) 0.4 10 ^3/uL (0-1.3)
[2024-06-03 07:19] LABS: Basophils % (auto) 0.8 % (0.0-2.0); Eosinophils % (auto) 2.2 % (0.0-7.0); Hematocrit 24.1 % (36.0-46.0); Lymphocytes % (auto) 38.3 % (10.0-50.0); Mean Corpuscular Hemoglobin 32.6 pg (28.0-32.0); Mean Corpuscular Hgb Conc. 34.1 g/dL (32.0-36.0); Mean Corpuscular Volume 95.5 fL (80.0-100.0); Monocytes % (auto) 14.1 % (0.0-12.0); Neutrophils # (auto) 1.3 10 ^3/uL (1.6-8.6); Neutrophils % (auto) 44.6 % (37.0-80.0); Nucleated Red Blood Cells % 0.1 %; Platelet Count (auto) 238 10^3/uL (140-450); Red Blood Cells 2.52 10^6/uL (4.0-5.20); Red Cell Distribution Width 18.4 % (11.8-14.3)
[2024-06-03 08:00] VITALS: PULSE 94; RESP 16; O2SAT 97
[2024-06-03 09:00] VITALS: BP 122/78; PULSE 71; RESP 16; TEMP 97.7; O2SAT 100
[2024-06-03 10:54] LABS: Anion Gap 4 (5-15)
[2024-06-03 11:00] LABS: Alkaline Phosphatase 758 U/L (46-116); Blood Urea Nitrogen 11 mg/dL (9-23)
[2024-06-03 11:01] LABS: Alanine Aminotransferase 60 U/L (7-40); Albumin 3.2 g/dL (3.2-4.8); Aspartate Aminotransferase 94 U/L (13-40); Bilirubin, Total 0.2 mg/dL (0.2-1.0); Total Protein 5.9 g/dL (5.7-8.2)
[2024-06-03 11:02] LABS: BUN/Creatinine Ratio 13.4 (10.0-20.0); Calcium 8.3 mg/dL (8.7-10.4); Carbon Dioxide 27 mmol/L (20-31); Chloride 98 mmol/L (98-107); Potassium 4.6 mmol/L (3.5-5.1); Sodium 129 mmol/L (136-145)
[2024-06-03 11:06] LABS: Glucose 598 mg/dL (74-106)
[2024-06-03] MEDS ORDERED: DEXTROSE (50%) 50ML SYRG IV PRN (11:30)
[2024-06-03] MEDS: ACCU-CHEK COMFORT CURVE STRIP VI SCH (11:47)
[2024-06-03] MEDS: InsuLIN REG 1unit/0.01ml Soln (100units/ml) SC SCH (11:49)
[2024-06-03 13:00] VITALS: BP 103/68; PULSE 100; RESP 18; TEMP 98; O2SAT 99
[2024-06-03 17:00] VITALS: BP 98/59; PULSE 95; RESP 18; TEMP 98.1; O2SAT 100
--- NOTE | 2024-06-03 18:10 | DVHPN2 ---
Subjective I am assuming the care of the patient was from today onwards. Patient was blood sugars are running high, insulin Lantus has been started. Reviewed: Care Plan Changes from previous H/P or p: No Changes Eyes: No Pain, No Vision change, No Conjunctivae inflammation, No Eyelid inflammation, No Other, No Redness ENT: No Ear pain, No Ear discharge, No Nose pain, No Nose discharge, No Nose congestion, No Mouth pain, No Mouth swelling, No Throat pain, No Throat swelling, No Other Cardiovascular: No Chest Pain, No Palpitations, No Orthopnea, No Paroxysmal Noc. Dyspnea, No Edema, No Lt Headedness, No Other Respiratory: No Cough, No Dry, No Shortness of breath, No SOB with excertion, No Wheezing, No Hemoptysis, No Pleuritic Pain, No Sputum, No Other Gastrointestinal: No Nausea, No Vomiting, No Abdominal Pain, No Diarrhea, No Constipation, No Melena, No Hematochezia, No Other Genitourinary: No Dysuria, No Frequency, No Incontinence, No Hematuria, No Retention, No Other Musculoskeletal: other (Bilateral lower extremity swelling and weakness.); No neck pain, No shoulder pain, No arm pain, No back pain, No hand pain, No leg pain, No foot pain Skin: No Rash, No Lesions, No Jaundice, No Bruising, No Other Objective Vitals Vital Signs Date Time Temp Pulse Resp B/P (MAP) Pulse Ox O2 Delivery O2 Flow Rate FiO2 06/03/24 17:00 98.1 95 18 98/59 (72) 100 98.1 06/03/24 08:00 Room Air* 0 21 Intake/Output Intake and Output 06/03/24 07:00 Intake Total 1480 ml Balance 1480 ml Intake Oral 1480 ml # Voids 5 # Bowel Movements 5 Exam HEENT pupils are reactive Neck is supple CV is S1-S2 regular rate and rhythm Respiratory bilateral clear GI positive bowel sounds 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 Medications Current Medications Medications Dose Ordered Sig/Barbie Route Start Time Stop Time Status Last Admin Dose Admin Sodium Chloride 10 ml Q8HR IV 06/02/24 06:00 06/03/24 15:07 10 ML Acetaminophen/ Hydrocodone Bitart 1 tab Q4HP PRN PO 06/02/24 03:15 06/02/24 21:19 1 TAB Ondansetron HCl 4 mg Q4HP PRN IV 06/02/24 03:15 Docusate Sodium 100 mg BIDPRN PRN PO 06/02/24 03:15 Acetaminophen 650 mg Q6HP PRN PO 06/02/24 03:15 Nitroglycerin 0.4 mg Q5MINP PRN SL 06/02/24 04:45 Morphine Sulfate 2 mg Q30M PRN IV 06/02/24 04:45 Famotidine 20 mg Q12HR IV 06/02/24 10:00 06/03/24 10:12 20 MG Multivitamins/ Minerals 1 tab DAILY PO 06/02/24 10:00 06/03/24 10:12 1 TAB Enoxaparin Sodium 40 mg DAILY SC 06/02/24 10:00 06/03/24 10:13 40 MG Trazodone HCl 150 mg HS PO 06/02/24 22:00 06/02/24 21:20 150 MG Diagnostic Test (Pha) 1 strip IQ4HR 06/03/24 12:00 06/03/24 16:25 1 STRIP Insulin Human Regular IQ4HR SC 06/03/24 12:00 06/03/24 16:26 6 UNITS Dextrose 50 ml UD PRN IV 06/03/24 11:30 Laboratory Results Laboratory Tests 06/03/24 05:39 06/03/24 10:20 Chemistry Test 06/03/24 10:20 Albumin 3.2 g/dL (3.2-4.8) Calcium Level 8.3 mg/dL (8.7-10.4) L Total Protein 5.9 g/dL (5.7-8.2) LFT Test 06/03/24 10:20 Alanine Aminotransferase (ALT) 60 U/L (7-40) H Alkaline Phosphatase 758 U/L (46-116) H Aspartate Amino Transferase (AST) 94 U/L (13-40) H Total Bilirubin 0.2 mg/dL (0.2-1.0) Urinalysis Test 06/02/24 03:05 Urine Color Light-yellow (Yellow) Urine Clarity Turbid (Clear) H Urine pH 7.0 (5.0-9.0) Urine Specific [place] 1.015 (1.001-1.035) Urine Protein Negative (Negative) Urine Ketones Negative (Negative) Urine Blood Negative /uL (Negative) Urine Nitrite Negative (Negative) Urine Bilirubin Negative (Negative) Urine Urobilinogen Normal mg/dL (Negative) Urine Leukocyte Esterase Negative /uL (Negative) Urine RBC 25 /hpf (0 - 4) Urine Microscopic WBC 9 /HPF (0-5) H Urine Squamous Epithelial Cells Few /hpf (<5) Urine Bacteria None seen /hpf (None Seen) Urine Glucose 1+ mg/dL (Normal) H Urine Test Negative (Negative) Microbiology Microbiology Date/Time Source Procedure Growth Status 06/02/24 14:40 Stool Clostridium difficile Toxin Assay - Final Complete Assessment/Plan Assessment/Plan Shield female with a known history of alcoholic liver disease, anemia, initially presented to the hospital with a bilateral lower extremity swelling found to have 1. Acute CHF exacerbation unspecified 2. Bilateral lower extremity swelling 3. Alcoholic liver disease 4. Hypoglycemia in the setting of diabetes mellitus type 2 insulin-dependent -resume insulin Lantus, moderate dose sliding scale, continue IV diuretics Discharge plan Plan discussed with: Patient My Orders Orders - EVAN LOGAN MD Procedure Category Date Status Time Glucose Blood PHA 06/03/24 In Process (Accu-Chek Comfort 12:00 Insulin R (Human) PHA 06/03/24 In Process (Insulin R) 12:00 Dextrose 50% Syringe PHA 06/03/24 In Process 11:30 Consistent DIET 06/03/24 Transmitted Carb(Ccho)Diabetes Lunch Date of Service: Jun 03, 2024 Billing Provider: EVAN LOGAN MD Common Visit Codes: NOT BILLABLE EVAN LOGAN MD Jun 03, 2024 18:10
[2024-06-03 21:00] VITALS: BP 108/71; PULSE 85; RESP 18; TEMP 97.5; O2SAT 98
[2024-06-03] MEDS: INSULIN LANTUS (GLARGINE) 1 /0.01ml (100units/ml) SC SCH (23:12)
[2024-06-04] VITALS (7 sets, daily range): BP systolic 87–147; BP diastolic 50–74; PULSE 75–90; RESP 16–20; TEMP 97.1–98.7; O2SAT 98–100
[2024-06-04] MEDS: SODIUM CHLORIDE 0.9% 500 ML IV ONE (04:45)
--- NOTE | 2024-06-04 16:57 | DVHDS2 ---
Discharge Summary Date of Admission Jun 02, 2024 at 04:43 Date of Discharge: Jun 05, 2024 Labs/Diagnostic Data: Laboratory Results Test 06/04/24 16:21 06/03/24 10:20 06/03/24 05:39 06/02/24 03:05 POC Glucose 336 mg/dl (70-106) Sodium Level 129 mmol/L (136-145) Potassium Level 4.6 mmol/L (3.5-5.1) Chloride Level 98 mmol/L (98-107) Carbon Dioxide Level 27 mmol/L (20-31) Anion Gap 4 (5-15) Blood Urea Nitrogen 11 mg/dL (9-23) Creatinine 0.82 mg/dL (0.550-1.02) Glomerular Filtration Rate Calc 92 mL/min (>90) BUN/Creatinine Ratio 13.4 (10.0-20.0) Serum Glucose 598 mg/dL (74-106) Calcium Level 8.3 mg/dL (8.7-10.4) Total Bilirubin 0.2 mg/dL (0.2-1.0) Aspartate Amino Transferase (AST) 94 U/L (13-40) Alanine Aminotransferase (ALT) 60 U/L (7-40) Alkaline Phosphatase 758 U/L (46-116) Total Protein 5.9 g/dL (5.7-8.2) Albumin 3.2 g/dL (3.2-4.8) White Blood Count 3.0 10^3/uL (4.4-10.8) Red Blood Count 2.52 10^6/uL (4.0-5.20) Hemoglobin 8.2 g/dL (12.2-16.2) Hematocrit 24.1 % (36.0-46.0) Mean Corpuscular Volume 95.5 fL (80.0-100.0) Mean Corpuscular Hemoglobin 32.6 pg (28.0-32.0) Mean Corpuscular Hemoglobin Concent 34.1 g/dL (32.0-36.0) Red Cell Distribution Width 18.4 % (11.8-14.3) Platelet Count 238 10^3/uL (140-450) Mean Platelet Volume 7.2 fL (6.9-10.8) Neutrophils (%) (Auto) 44.6 % (37.0-80.0) Lymphocytes (%) (Auto) 38.3 % (10.0-50.0) Monocytes (%) (Auto) 14.1 % (0.0-12.0) Eosinophils (%) (Auto) 2.2 % (0.0-7.0) Basophils (%) (Auto) 0.8 % (0.0-2.0) Neutrophils # (Auto) 1.3 10 ^3/uL (1.6-8.6) Lymphocytes # (Auto) 1.1 10 ^3/uL (0.4-5.4) Monocytes # (Auto) 0.4 10 ^3/uL (0-1.3) Eosinophils # (Auto) 0.1 10 ^3/uL (0-0.8) Basophils # (Auto) 0 10 ^3/uL (0-0.2) Nucleated Red Blood Cells 0.1 % Urine Color Light-yellow (Yellow) Urine Clarity Turbid (Clear) Urine pH 7.0 (5.0-9.0) Urine Specific [place] 1.015 (1.001-1.035) Urine Protein Negative (Negative) Urine Ketones Negative (Negative) Urine Blood Negative /uL (Negative) Urine Nitrite Negative (Negative) Urine Bilirubin Negative (Negative) Urine Urobilinogen Normal mg/dL (Negative) Urine Leukocyte Esterase Negative /uL (Negative) Urine RBC 25 /hpf (0 - 4) Urine Microscopic WBC 9 /HPF (0-5) Urine Squamous Epithelial Cells Few /hpf (<5) Urine Bacteria None seen /hpf (None Seen) Urine Glucose 1+ mg/dL (Normal) Urine Test Negative (Negative) Test 06/02/24 01:33 Hemoglobin A1c 8.4 % A1C (<5.7) Gamma Glutamyl Transpeptidase 372 U/L (<38) Troponin I High Sensitivity < 3 ng/L (</=34) B-Type Natriuretic Peptide 72.75 pg/mL (0-100) Lipase 11 U/L (12-53) Other Laboratory Tests 06/03/24 10:20 06/03/24 05:39 Brief Hx & Hospital Course: 44 year old female with a known history of alcoholic liver disease, anemia, initially presented to the hospital with a bilateral lower extremity swelling found to have acute CHF exacerbation unspecified. Patient also had alcoholic liver disease. Patient blood sugars were uncontrolled. Eventually patient was resumed on home dose of Lantus insulin . Patient lives in a assisted living/board and care. Was care accept the patient patient can be discharged. Final Diagnosis/Problems List 44year female with a known history of alcoholic liver disease, anemia, initially presented to the hospital with a bilateral lower extremity swelling found to have 1. Acute CHF exacerbation unspecified 2. Bilateral lower extremity swelling 3. Alcoholic liver disease 4. Hypoglycemia in the setting of diabetes mellitus type 2 insulin-dependent Discharge Disposition: Home Discharge Instruct/Medications Diet: Cardiac 2g Na,low cholest Activity: See Comment Activity comment: No driving, no signing of legal documents, no planning on heavy machinery while on narcotics. Follow Up/Referral: Follow up with the PCP and GI in 1-2 weeks Medications: As reconciled Discharge Statement: "Patient was advised to return to the ER or call 911 if any headaches, dizziness, shortness of breath, chest pain, abdominal pain, bleeding, fevers, or worsening of medical condition. Patient was counseled about treatment plan, medications, possible side effects, patientverbalized understanding. All questions were answered to the best of my ability. This discharge took greater then 30 minutes in planning, reviewing documentation, counseling the patient, and discussing with other team members." ASSESSMENT ASSESSMENT Assessment Shield female with a known history of alcoholic liver disease, anemia, initially presented to the hospital with a bilateral lower extremity swelling found to have 1. Acute CHF exacerbation unspecified 2. Bilateral lower extremity swelling 3. Alcoholic liver disease 4. Hypoglycemia in the setting of diabetes mellitus type 2 insulin-dependent EVAN LOGAN MD Jun 04, 2024 16:57
[2024-06-05] VITALS (8 sets, daily range): BP systolic 91–124; BP diastolic 43–78; PULSE 65–96; RESP 16–19; TEMP 97.3–98.7; O2SAT 96–100
--- NOTE | 2024-06-05 17:58 | DVHPN2 ---
Subjective Patient blood sugars are uncontrolled. Reviewed: Care Plan Changes from previous H/P or p: No Changes Eyes: No Pain, No Vision change, No Conjunctivae inflammation, No Eyelid inflammation, No Other, No Redness ENT: No Ear pain, No Ear discharge, No Nose pain, No Nose discharge, No Nose congestion, No Mouth pain, No Mouth swelling, No Throat pain, No Throat swelling, No Other Cardiovascular: No Chest Pain, No Palpitations, No Orthopnea, No Paroxysmal Noc. Dyspnea, No Edema, No Lt Headedness, No Other Respiratory: No Cough, No Dry, No Shortness of breath, No SOB with excertion, No Wheezing, No Hemoptysis, No Pleuritic Pain, No Sputum, No Other Gastrointestinal: No Nausea, No Vomiting, No Abdominal Pain, No Diarrhea, No Constipation, No Melena, No Hematochezia, No Other Genitourinary: No Dysuria, No Frequency, No Incontinence, No Hematuria, No Retention, No Other Musculoskeletal: other (Bilateral lower extremity swelling and weakness.); No neck pain, No shoulder pain, No arm pain, No back pain, No hand pain, No leg pain, No foot pain Skin: No Rash, No Lesions, No Jaundice, No Bruising, No Other Objective Vitals Vital Signs Date Time Temp Pulse Resp B/P (MAP) Pulse Ox O2 Delivery O2 Flow Rate FiO2 06/05/24 16:57 98.1 70 19 112/69 (83) 100 98.1 06/05/24 08:00 Room Air* 0 21 Intake/Output Intake and Output 06/05/24 07:00 Intake Total 2300 ml Balance 2300 ml Intake Oral 2300 ml # Voids 6 # Bowel Movements 9 Exam HEENT pupils are reactive Neck is supple CV is S1-S2 regular rate and rhythm Respiratory bilateral clear GI positive bowel sounds 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 Medications Current Medications Medications Dose Ordered Sig/Barbie Route Start Time Stop Time Status Last Admin Dose Admin Sodium Chloride 10 ml Q8HR IV 06/02/24 06:00 06/05/24 14:03 10 ML Acetaminophen/ Hydrocodone Bitart 1 tab Q4HP PRN PO 06/02/24 03:15 06/05/24 11:26 1 TAB Ondansetron HCl 4 mg Q4HP PRN IV 06/02/24 03:15 Docusate Sodium 100 mg BIDPRN PRN PO 06/02/24 03:15 Acetaminophen 650 mg Q6HP PRN PO 06/02/24 03:15 Nitroglycerin 0.4 mg Q5MINP PRN SL 06/02/24 04:45 Morphine Sulfate 2 mg Q30M PRN IV 06/02/24 04:45 Famotidine 20 mg Q12HR IV 06/02/24 10:00 06/05/24 08:31 20 MG Multivitamins/ Minerals 1 tab DAILY PO 06/02/24 10:00 06/05/24 08:33 1 TAB Enoxaparin Sodium 40 mg DAILY SC 06/02/24 10:00 06/05/24 08:33 40 MG Trazodone HCl 150 mg HS PO 06/02/24 22:00 06/04/24 21:24 150 MG Diagnostic Test (Pha) 1 strip IQ4HR 06/03/24 12:00 06/05/24 15:42 1 STRIP Insulin Human Regular IQ4HR SC 06/03/24 12:00 06/05/24 12:46 6 UNITS Dextrose 50 ml UD PRN IV 06/03/24 11:30 Insulin Glargine 25 units HS SC 06/03/24 22:00 06/04/24 21:33 25 UNITS Laboratory Results Laboratory Tests 06/03/24 05:39 06/03/24 10:20 Urinalysis Test 06/02/24 03:05 Urine Color Light-yellow (Yellow) Urine Clarity Turbid (Clear) H Urine pH 7.0 (5.0-9.0) Urine Specific [place] 1.015 (1.001-1.035) Urine Protein Negative (Negative) Urine Ketones Negative (Negative) Urine Blood Negative /uL (Negative) Urine Nitrite Negative (Negative) Urine Bilirubin Negative (Negative) Urine Urobilinogen Normal mg/dL (Negative) Urine Leukocyte Esterase Negative /uL (Negative) Urine RBC 25 /hpf (0 - 4) Urine Microscopic WBC 9 /HPF (0-5) H Urine Squamous Epithelial Cells Few /hpf (<5) Urine Bacteria None seen /hpf (None Seen) Urine Glucose 1+ mg/dL (Normal) H Urine Test Negative (Negative) Microbiology Microbiology Date/Time Source Procedure Growth Status 06/02/24 14:40 Stool Clostridium difficile Toxin Assay - Final Complete Assessment/Plan Assessment/Plan 44 yr old female with a known history of alcoholic liver disease, anemia, initially presented to the hospital with a bilateral lower extremity swelling found to have 1. Acute CHF exacerbation unspecified 2. Bilateral lower extremity swelling 3. Alcoholic liver disease 4. Hyperglycemia in the setting of diabetes mellitus type 2 insulin-dependent -continue insulin Lantus, moderate dose sliding scale, continue IV diuretics Discharge plan to board and care Plan discussed with: Patient Date of Service: Jun 04, 2024 Billing Provider: EVAN LOGAN MD Common Visit Codes: [id number] INP/OBS CARE(MOD) EVAN LOGAN MD Jun 05, 2024 17:57
[2024-06-06] VITALS (9 sets, daily range): BP systolic 96–120; BP diastolic 58–80; PULSE 72–77; RESP 16–18; TEMP 97.7–98.5; O2SAT 98–99
[2024-06-06] MEDS: ACETAMINOPHEN 325 MG TAB PO PRN (10:21)
--- NOTE | 2024-06-06 16:43 | DVHPN2 ---
Subjective Patient blood sugars are uncontrolled. She keeps asking more food. Reviewed: Care Plan Changes from previous H/P or p: No Changes Eyes: No Pain, No Vision change, No Conjunctivae inflammation, No Eyelid inflammation, No Other, No Redness ENT: No Ear pain, No Ear discharge, No Nose pain, No Nose discharge, No Nose congestion, No Mouth pain, No Mouth swelling, No Throat pain, No Throat swelling, No Other Cardiovascular: No Chest Pain, No Palpitations, No Orthopnea, No Paroxysmal Noc. Dyspnea, No Edema, No Lt Headedness, No Other Respiratory: No Cough, No Dry, No Shortness of breath, No SOB with excertion, No Wheezing, No Hemoptysis, No Pleuritic Pain, No Sputum, No Other Gastrointestinal: No Nausea, No Vomiting, No Abdominal Pain, No Diarrhea, No Constipation, No Melena, No Hematochezia, No Other Genitourinary: No Dysuria, No Frequency, No Incontinence, No Hematuria, No Retention, No Other Musculoskeletal: other (Bilateral lower extremity swelling and weakness.); No neck pain, No shoulder pain, No arm pain, No back pain, No hand pain, No leg pain, No foot pain Skin: No Rash, No Lesions, No Jaundice, No Bruising, No Other Objective Vitals Vital Signs Date Time Temp Pulse Resp B/P (MAP) Pulse Ox O2 Delivery O2 Flow Rate FiO2 06/06/24 12:30 98.1 72 18 103/58 (73) 99 98.1 06/06/24 08:00 Room Air* 0 21 Intake/Output Intake and Output 06/06/24 07:00 Intake Total 1560 ml Balance 1560 ml Intake Oral 1560 ml # Voids 8 # Bowel Movements 4 Exam HEENT pupils are reactive Neck is supple CV is S1-S2 regular rate and rhythm Respiratory bilateral clear GI positive bowel sounds Extremity trace edema 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 Medications Current Medications Medications Dose Ordered Sig/Barbie Route Start Time Stop Time Status Last Admin Dose Admin Sodium Chloride 10 ml Q8HR IV 06/02/24 06:00 06/06/24 13:14 10 ML Acetaminophen/ Hydrocodone Bitart 1 tab Q4HP PRN PO 06/02/24 03:15 06/06/24 13:14 1 TAB Ondansetron HCl 4 mg Q4HP PRN IV 06/02/24 03:15 Docusate Sodium 100 mg BIDPRN PRN PO 06/02/24 03:15 Acetaminophen 650 mg Q6HP PRN PO 06/02/24 03:15 06/06/24 10:21 650 MG Nitroglycerin 0.4 mg Q5MINP PRN SL 06/02/24 04:45 Morphine Sulfate 2 mg Q30M PRN IV 06/02/24 04:45 Famotidine 20 mg Q12HR IV 06/02/24 10:00 06/06/24 07:47 20 MG Multivitamins/ Minerals 1 tab DAILY PO 06/02/24 10:00 06/06/24 07:47 1 TAB Enoxaparin Sodium 40 mg DAILY SC 06/02/24 10:00 06/06/24 07:58 40 MG Trazodone HCl 150 mg HS PO 06/02/24 22:00 06/05/24 21:49 150 MG Diagnostic Test (Pha) 1 strip IQ4HR 06/03/24 12:00 06/06/24 12:19 1 STRIP Insulin Human Regular IQ4HR SC 06/03/24 12:00 06/06/24 12:21 12 UNITS Dextrose 50 ml UD PRN IV 06/03/24 11:30 Insulin Glargine 25 units HS SC 06/03/24 22:00 06/05/24 21:48 25 UNITS Laboratory Results Laboratory Tests 06/03/24 05:39 06/03/24 10:20 Urinalysis Test 06/02/24 03:05 Urine Color Light-yellow (Yellow) Urine Clarity Turbid (Clear) H Urine pH 7.0 (5.0-9.0) Urine Specific [place] 1.015 (1.001-1.035) Urine Protein Negative (Negative) Urine Ketones Negative (Negative) Urine Blood Negative /uL (Negative) Urine Nitrite Negative (Negative) Urine Bilirubin Negative (Negative) Urine Urobilinogen Normal mg/dL (Negative) Urine Leukocyte Esterase Negative /uL (Negative) Urine RBC 25 /hpf (0 - 4) Urine Microscopic WBC 9 /HPF (0-5) H Urine Squamous Epithelial Cells Few /hpf (<5) Urine Bacteria None seen /hpf (None Seen) Urine Glucose 1+ mg/dL (Normal) H Urine Test Negative (Negative) Microbiology Microbiology Date/Time Source Procedure Growth Status 06/02/24 14:40 Stool Clostridium difficile Toxin Assay - Final Complete Assessment/Plan Assessment/Plan 44 yr old female with a known history of alcoholic liver disease, anemia, initially presented to the hospital with a bilateral lower extremity swelling found to have 1. Acute CHF exacerbation unspecified 2. Bilateral lower extremity swelling 3. Alcoholic liver disease 4. Hyperglycemia in the setting of diabetes mellitus type 2 insulin-dependent -continue insulin Lantus, moderate dose sliding scale, continue IV diuretics Discharge plan to board and care Plan discussed with: Patient My Orders Orders - EVAN LOGAN MD Procedure Category Date Status Time * Stage Driver CONS 06/06/24 Transmitted Consult Date of Service: Jun 06, 2024 Billing Provider: EVAN LOGAN MD Common Visit Codes: [id number] INP/OBS CARE(MOD) EVAN LOGAN MD Jun 06, 2024 16:43
[2024-06-06] MEDS ORDERED: GABA-339 PO (19:09)
[2024-06-07] VITALS (8 sets, daily range): BP systolic 91–120; BP diastolic 52–84; PULSE 70–96; RESP 14–18; TEMP 97.3–98.7; O2SAT 97–100
[2024-06-07] MEDS: GABAPENTIN 400 MG CAP PO SCH (08:50)
--- NOTE | 2024-06-07 17:08 | DVHPN2 ---
Subjective Patient blood sugars are uncontrolled. She keeps asking more food. 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 Reviewed: Care Plan Changes from previous H/P or p: No Changes Eyes: No Pain, No Vision change, No Conjunctivae inflammation, No Eyelid inflammation, No Other, No Redness ENT: No Ear pain, No Ear discharge, No Nose pain, No Nose discharge, No Nose congestion, No Mouth pain, No Mouth swelling, No Throat pain, No Throat swelling, No Other Cardiovascular: No Chest Pain, No Palpitations, No Orthopnea, No Paroxysmal Noc. Dyspnea, No Edema, No Lt Headedness, No Other Respiratory: No Cough, No Dry, No Shortness of breath, No SOB with excertion, No Wheezing, No Hemoptysis, No Pleuritic Pain, No Sputum, No Other Gastrointestinal: No Nausea, No Vomiting, No Abdominal Pain, No Diarrhea, No Constipation, No Melena, No Hematochezia, No Other Genitourinary: No Dysuria, No Frequency, No Incontinence, No Hematuria, No Retention, No Other Musculoskeletal: other (Bilateral lower extremity swelling and weakness.); No neck pain, No shoulder pain, No arm pain, No back pain, No hand pain, No leg pain, No foot pain Skin: No Rash, No Lesions, No Jaundice, No Bruising, No Other Objective Vitals Vital Signs Date Time Temp Pulse Resp B/P (MAP) Pulse Ox O2 Delivery O2 Flow Rate FiO2 06/07/24 16:39 97.9 70 14 100/60 (73) 98 97.9 06/07/24 08:10 Room Air* 0 21 Intake/Output Intake and Output 06/07/24 07:00 Intake Total 1404 ml Balance 1404 ml Intake Oral 1404 ml # Voids 6 # Bowel Movements 3 Exam HEENT pupils are reactive Neck is supple CV is S1-S2 regular rate and rhythm Respiratory bilateral clear GI positive bowel sounds 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 Medications Current Medications Medications Dose Ordered Sig/Barbie Route Start Time Stop Time Status Last Admin Dose Admin Sodium Chloride 10 ml Q8HR IV 06/02/24 06:00 06/07/24 13:25 10 ML Acetaminophen/ Hydrocodone Bitart 1 tab Q4HP PRN PO 06/02/24 03:15 06/07/24 08:52 1 TAB Ondansetron HCl 4 mg Q4HP PRN IV 06/02/24 03:15 Docusate Sodium 100 mg BIDPRN PRN PO 06/02/24 03:15 Acetaminophen 650 mg Q6HP PRN PO 06/02/24 03:15 06/06/24 10:21 650 MG Nitroglycerin 0.4 mg Q5MINP PRN SL 06/02/24 04:45 Morphine Sulfate 2 mg Q30M PRN IV 06/02/24 04:45 Famotidine 20 mg Q12HR IV 06/02/24 10:00 06/07/24 08:50 20 MG Multivitamins/ Minerals 1 tab DAILY PO 06/02/24 10:00 06/07/24 08:50 1 TAB Enoxaparin Sodium 40 mg DAILY SC 06/02/24 10:00 06/07/24 08:50 40 MG Trazodone HCl 150 mg HS PO 06/02/24 22:00 06/06/24 21:45 150 MG Diagnostic Test (Pha) 1 strip IQ4HR 06/03/24 12:00 06/07/24 11:51 1 STRIP Insulin Human Regular IQ4HR SC 06/03/24 12:00 06/07/24 11:51 2 UNITS Dextrose 50 ml UD PRN IV 06/03/24 11:30 Insulin Glargine 25 units HS SC 06/03/24 22:00 06/06/24 21:44 25 UNITS Gabapentin 800 mg DAILY PO 06/07/24 10:00 06/07/24 08:50 800 MG Laboratory Results Laboratory Tests 06/03/24 05:39 06/03/24 10:20 Urinalysis Test 06/02/24 03:05 Urine Color Light-yellow (Yellow) Urine Clarity Turbid (Clear) H Urine pH 7.0 (5.0-9.0) Urine Specific [place] 1.015 (1.001-1.035) Urine Protein Negative (Negative) Urine Ketones Negative (Negative) Urine Blood Negative /uL (Negative) Urine Nitrite Negative (Negative) Urine Bilirubin Negative (Negative) Urine Urobilinogen Normal mg/dL (Negative) Urine Leukocyte Esterase Negative /uL (Negative) Urine RBC 25 /hpf (0 - 4) Urine Microscopic WBC 9 /HPF (0-5) H Urine Squamous Epithelial Cells Few /hpf (<5) Urine Bacteria None seen /hpf (None Seen) Urine Glucose 1+ mg/dL (Normal) H Urine Test Negative (Negative) Microbiology Microbiology Date/Time Source Procedure Growth Status 06/02/24 14:40 Stool Clostridium difficile Toxin Assay - Final Complete Assessment/Plan Assessment/Plan 44 yr old female with a known history of alcoholic liver disease, anemia, initially presented to the hospital with a bilateral lower extremity swelling found to have 1. Acute CHF exacerbation unspecified 2. Bilateral lower extremity swelling 3. Alcoholic liver disease 4. Hyperglycemia in the setting of diabetes mellitus type 2 insulin-dependent -continue insulin Lantus, moderate dose sliding scale, continue IV diuretics Discharge plan to recuperative care as patient is homeless -follow up sutures services. Plan discussed with: Other My Orders Orders - EVAN LOGAN MD Procedure Category Date Status Time Gabapentin Capsule PHA 06/07/24 In Process (Neurontin Capsule) 10:00 Pt Request For Service PT 06/07/24 Logged 15:17 Basic Metabolic Panel LAB 06/07/24 Logged 15:56 Date of Service: Jun 07, 2024 Billing Provider: EVAN LOGAN MD Common Visit Codes: [id number] INP/OBS CARE(LOW) EVAN LOGAN MD Jun 07, 2024 17:07
[2024-06-07 19:49] LABS: Chloride 101 mmol/L (98-107)
[2024-06-07 19:50] LABS: Anion Gap 6 (5-15); Calcium 9.3 mg/dL (8.7-10.4); Carbon Dioxide 27 mmol/L (20-31)
[2024-06-07 19:55] LABS: BUN/Creatinine Ratio 13.3 (10.0-20.0)
[2024-06-07 19:58] LABS: Blood Urea Nitrogen 8 mg/dL (9-23); Glucose 253 mg/dL (74-106); Sodium 134 mmol/L (136-145)
[2024-06-08] VITALS (8 sets, daily range): BP systolic 106–124; BP diastolic 65–77; PULSE 72–108; RESP 16–20; TEMP 97.7–98.6; O2SAT 98–100
--- NOTE | 2024-06-08 16:09 | DVHDS2 ---
Discharge Summary Date of Admission Jun 02, 2024 at 04:43 Date of Discharge: Jun 08, 2024 Labs/Diagnostic Data: Laboratory Results Test 06/08/24 11:38 06/07/24 19:29 06/03/24 10:20 06/03/24 05:39 POC Glucose 138 mg/dl (70-106) Sodium Level 134 mmol/L (136-145) Potassium Level 4.0 mmol/L (3.5-5.1) Chloride Level 101 mmol/L (98-107) Carbon Dioxide Level 27 mmol/L (20-31) Anion Gap 6 (5-15) Blood Urea Nitrogen 8 mg/dL (9-23) Creatinine 0.60 mg/dL (0.550-1.02) Glomerular Filtration Rate Calc 115 mL/min (>90) BUN/Creatinine Ratio 13.3 (10.0-20.0) Serum Glucose 253 mg/dL (74-106) Calcium Level 9.3 mg/dL (8.7-10.4) Total Bilirubin 0.2 mg/dL (0.2-1.0) Aspartate Amino Transferase (AST) 94 U/L (13-40) Alanine Aminotransferase (ALT) 60 U/L (7-40) Alkaline Phosphatase 758 U/L (46-116) Total Protein 5.9 g/dL (5.7-8.2) Albumin 3.2 g/dL (3.2-4.8) White Blood Count 3.0 10^3/uL (4.4-10.8) Red Blood Count 2.52 10^6/uL (4.0-5.20) Hemoglobin 8.2 g/dL (12.2-16.2) Hematocrit 24.1 % (36.0-46.0) Mean Corpuscular Volume 95.5 fL (80.0-100.0) Mean Corpuscular Hemoglobin 32.6 pg (28.0-32.0) Mean Corpuscular Hemoglobin Concent 34.1 g/dL (32.0-36.0) Red Cell Distribution Width 18.4 % (11.8-14.3) Platelet Count 238 10^3/uL (140-450) Mean Platelet Volume 7.2 fL (6.9-10.8) Neutrophils (%) (Auto) 44.6 % (37.0-80.0) Lymphocytes (%) (Auto) 38.3 % (10.0-50.0) Monocytes (%) (Auto) 14.1 % (0.0-12.0) Eosinophils (%) (Auto) 2.2 % (0.0-7.0) Basophils (%) (Auto) 0.8 % (0.0-2.0) Neutrophils # (Auto) 1.3 10 ^3/uL (1.6-8.6) Lymphocytes # (Auto) 1.1 10 ^3/uL (0.4-5.4) Monocytes # (Auto) 0.4 10 ^3/uL (0-1.3) Eosinophils # (Auto) 0.1 10 ^3/uL (0-0.8) Basophils # (Auto) 0 10 ^3/uL (0-0.2) Nucleated Red Blood Cells 0.1 % Test 06/02/24 03:05 06/02/24 01:33 Urine Color Light-yellow (Yellow) Urine Clarity Turbid (Clear) Urine pH 7.0 (5.0-9.0) Urine Specific [place] 1.015 (1.001-1.035) Urine Protein Negative (Negative) Urine Ketones Negative (Negative) Urine Blood Negative /uL (Negative) Urine Nitrite Negative (Negative) Urine Bilirubin Negative (Negative) Urine Urobilinogen Normal mg/dL (Negative) Urine Leukocyte Esterase Negative /uL (Negative) Urine RBC 25 /hpf (0 - 4) Urine Microscopic WBC 9 /HPF (0-5) Urine Squamous Epithelial Cells Few /hpf (<5) Urine Bacteria None seen /hpf (None Seen) Urine Glucose 1+ mg/dL (Normal) Urine Test Negative (Negative) Hemoglobin A1c 8.4 % A1C (<5.7) Gamma Glutamyl Transpeptidase 372 U/L (<38) Troponin I High Sensitivity < 3 ng/L (</=34) B-Type Natriuretic Peptide 72.75 pg/mL (0-100) Lipase 11 U/L (12-53) Other Laboratory Tests 06/07/24 19:29 06/03/24 05:39 Brief Hx & Hospital Course: HPI: 44-year-old female with multiple past medical history including anemia, liver disease, EtOH, and portal hypertension presented to [facility] ED with complaint of generalized weakness and bilateral lower extremity swelling. Patient reports she has been unable to ambulate without a walker or with assistance. Summary: patient present with weakness and leg swelling. she is homeless, medical/dietary noncompliance. On admission labs patient has hypoalbuminemia, troponins negative, bnp normal. There is mild elevation LFTs, ALP elevated to 800, GGT is also elevated 372, mild hypokalemia 3.4, stable anemia 8-9 normocytic, monocytosis, leukopenia 3.0,. Patient was admitted for CHF exacerbation. There is no echo on file. Likely diastolic. Patient bilateral lower extremity improves with Lasix. Patient had history of alcoholic liver disease. Her main here to be weakness, urinary incontinence, these are likely all chronic issues. Patient has chronic disease burden in homelessness require placement and recuperative care if pursued but successful. PT evaluates and patient is independent. Vital signs stable on p.o. medications patient was stable for discharge to home has [facility] alf information was provided. Stable for discharge as per plan below. 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 due to shelter poorly controlled DM Hypoalbuminemia, urinary incontinence ALp elevated homelessness Leukopenia Monocytosis Anemia, normocytic stable dietary noncompliance Discharge plan: - continue home medications - OTC stool softeners for constipation - reglan (as needed) for gastroparesis-related nausea - adult diapers prn for urinary incontinence - [facility] alf information provided - strict low carb/diabetic diet - follow-up with PCP to review discharge and to get appropriate referrals for sequelae of chronic diabetes (consider urology for chronic incontinence and GI for gastroparesis) Condition at Discharge: Guarded Final Diagnosis/Problems List Acute CHF exacerbation, likely diastolic, resolved Bilateral lower extremity swelling , resolved chronic Alcoholic liver disease Hypoglycemia and hyperglycemia in the setting of diabetes mellitus type 2 insulin-dependent fecal and urinary 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 Follow Up/Referral: Follow up with the PCP and GI in 1-2 weeks Medications: As reconciled Discharge Statement: "Patient was advised to return to the ER or call 911 if any headaches, dizziness, shortness of breath, chest pain, abdominal pain, bleeding, fevers, or worsening of medical condition. Patient was counseled about treatment plan, medications, possible side effects, patientverbalized understanding. All questions were answered to the best of my ability. This discharge took greater then 30 minutes in planning, reviewing documentation, counseling the patient, and discussing with other team members." Date of Service: Jun 08, 2024 Billing Provider: LIN MAJANO MD Common Visit Codes: [id number] DISCH DAY >30min LIN MAJANO MD Jun 08, 2024 16:09
[2024-06-08] MEDS ORDERED: METO5TAB67 PO (16:25)
[2024-06-09] VITALS (8 sets, daily range): BP systolic 84–130; BP diastolic 47–87; PULSE 71–91; RESP 17–20; TEMP 97.5–98.7; O2SAT 97–100
[2024-06-09] MEDS: ACCU-CHEK COMFORT CURVE STRIP VI SCH (18:26)
[2024-06-09] MEDS: InsuLIN REG 1unit/0.01ml Soln (100units/ml) SC SCH (18:27)
[2024-06-10] VITALS (8 sets, daily range): BP systolic 87–133; BP diastolic 55–81; PULSE 71–91; RESP 16–20; TEMP 97.9–98.7; O2SAT 98–100
--- NOTE | 2024-06-10 19:44 | DVHPN2 ---
Reviewed: Care Plan Changes from previous H/P or p: No Changes General: Per HPI Eyes: No Pain, No Vision change, No Conjunctivae inflammation, No Eyelid inflammation, No Other, No Redness ENT: No Ear pain, No Ear discharge, No Nose pain, No Nose discharge, No Nose congestion, No Mouth pain, No Mouth swelling, No Throat pain, No Throat swelling, No Other Cardiovascular: No Chest Pain, No Palpitations, No Orthopnea, No Paroxysmal Noc. Dyspnea, No Edema, No Lt Headedness, No Other Respiratory: No Cough, No Dry, No Shortness of breath, No SOB with excertion, No Wheezing, No Hemoptysis, No Pleuritic Pain, No Sputum, No Other Gastrointestinal: No Nausea, No Vomiting, No Abdominal Pain, No Diarrhea, No Constipation, No Melena, No Hematochezia, No Other Genitourinary: No Dysuria, No Frequency, No Incontinence, No Hematuria, No Retention, No Other Musculoskeletal: other (Bilateral lower extremity swelling and weakness.); No neck pain, No shoulder pain, No arm pain, No back pain, No hand pain, No leg pain, No foot pain Skin: No Rash, No Lesions, No Jaundice, No Bruising, No Other Objective Vitals Vital Signs Date Time Temp Pulse Resp B/P (MAP) Pulse Ox O2 Delivery O2 Flow Rate FiO2 06/10/24 17:14 98.3 73 20 133/55 (81) 100 98.3 06/10/24 08:00 Room Air* 0 21 Intake/Output Intake and Output 06/10/24 07:00 Intake Total 2900 ml Balance 2900 ml Intake Oral 2900 ml # Voids 8 # Bowel Movements 8 General Appearance: Alert, Oriented X3, Cooperative HEENT: Atraumatic Cardiovascular: Regular rate, Normal S1, Normal S2 Abdomen: Normal bowel sounds Medications Current Medications Medications Dose Ordered Sig/Barbie Route Start Time Stop Time Status Last Admin Dose Admin Sodium Chloride 10 ml Q8HR IV 06/02/24 06:00 06/10/24 14:00 10 ML Acetaminophen/ Hydrocodone Bitart 1 tab Q4HP PRN PO 06/02/24 03:15 06/09/24 20:21 1 TAB Ondansetron HCl 4 mg Q4HP PRN IV 06/02/24 03:15 Docusate Sodium 100 mg BIDPRN PRN PO 06/02/24 03:15 Acetaminophen 650 mg Q6HP PRN PO 06/02/24 03:15 06/06/24 10:21 650 MG Nitroglycerin 0.4 mg Q5MINP PRN SL 06/02/24 04:45 Morphine Sulfate 2 mg Q30M PRN IV 06/02/24 04:45 Famotidine 20 mg Q12HR IV 06/02/24 10:00 06/10/24 09:25 20 MG Multivitamins/ Minerals 1 tab DAILY PO 06/02/24 10:00 06/10/24 09:25 1 TAB Enoxaparin Sodium 40 mg DAILY SC 06/02/24 10:00 06/10/24 09:25 40 MG Trazodone HCl 150 mg HS PO 06/02/24 22:00 06/09/24 22:01 150 MG Insulin Glargine 25 units HS SC 06/03/24 22:00 06/09/24 22:00 25 UNITS Gabapentin 800 mg DAILY PO 06/07/24 10:00 06/10/24 09:25 800 MG Diagnostic Test (Pha) 1 strip IQ4HR 06/09/24 18:00 06/10/24 16:00 1 STRIP Insulin Human Regular IQ4HR SC 06/09/24 18:00 06/10/24 16:00 20 UNITS Dextrose 50 ml UD PRN IV 06/09/24 18:00 Laboratory Results Laboratory Tests 06/03/24 05:39 06/07/24 19:29 Urinalysis Test 06/02/24 03:05 Urine Color Light-yellow (Yellow) Urine Clarity Turbid (Clear) H Urine pH 7.0 (5.0-9.0) Urine Specific [place] 1.015 (1.001-1.035) Urine Protein Negative (Negative) Urine Ketones Negative (Negative) Urine Blood Negative /uL (Negative) Urine Nitrite Negative (Negative) Urine Bilirubin Negative (Negative) Urine Urobilinogen Normal mg/dL (Negative) Urine Leukocyte Esterase Negative /uL (Negative) Urine RBC 25 /hpf (0 - 4) Urine Microscopic WBC 9 /HPF (0-5) H Urine Squamous Epithelial Cells Few /hpf (<5) Urine Bacteria None seen /hpf (None Seen) Urine Glucose 1+ mg/dL (Normal) H Urine Test Negative (Negative) Microbiology Microbiology Date/Time Source Procedure Growth Status 06/02/24 14:40 Stool Clostridium difficile Toxin Assay - Final Complete Labs and/or images reviewed: Labs reviewed by me, Image(s) reviewed by me Assessment/Plan Assessment/Plan 44 yr old female with a known history of alcoholic liver disease, anemia, initially presented to the hospital with a bilateral lower extremity swelling found to have 1. Acute CHF exacerbation unspecified 2. Bilateral lower extremity swelling 3. Alcoholic liver disease 4. Hyperglycemia in the setting of diabetes mellitus type 2 insulin-dependent -continue insulin Lantus, moderate dose sliding scale, continue IV diuretics Discharge plan to recuperative care as patient is homeless pending placement Plan discussed with: Patient My Orders Orders - JEREMIAH YUSUF DO Procedure Category Date Status Time * Market Editor CONS 06/10/24 Transmitted Consult 10:43 Date of Service: Jun 09, 2024 Billing Provider: JEREMIAH YUSUF DO Common Visit Codes: [id number] INP/OBS CARE(HIGH) JEREMIAH YUSUF DO Jun 10, 2024 19:44
--- NOTE | 2024-06-10 20:01 | DVHPN2 ---
Reviewed: Care Plan Changes from previous H/P or p: No Changes General: Per HPI Eyes: No Pain, No Vision change, No Conjunctivae inflammation, No Eyelid inflammation, No Other, No Redness ENT: No Ear pain, No Ear discharge, No Nose pain, No Nose discharge, No Nose congestion, No Mouth pain, No Mouth swelling, No Throat pain, No Throat swelling, No Other Cardiovascular: No Chest Pain, No Palpitations, No Orthopnea, No Paroxysmal Noc. Dyspnea, No Edema, No Lt Headedness, No Other Respiratory: No Cough, No Dry, No Shortness of breath, No SOB with excertion, No Wheezing, No Hemoptysis, No Pleuritic Pain, No Sputum, No Other Gastrointestinal: No Nausea, No Vomiting, No Abdominal Pain, No Diarrhea, No Constipation, No Melena, No Hematochezia, No Other Genitourinary: No Dysuria, No Frequency, No Incontinence, No Hematuria, No Retention, No Other Musculoskeletal: other (Bilateral lower extremity swelling and weakness.); No neck pain, No shoulder pain, No arm pain, No back pain, No hand pain, No leg pain, No foot pain Skin: No Rash, No Lesions, No Jaundice, No Bruising, No Other Objective Vitals Vital Signs Date Time Temp Pulse Resp B/P (MAP) Pulse Ox O2 Delivery O2 Flow Rate FiO2 06/10/24 17:14 98.3 73 20 133/55 (81) 100 98.3 06/10/24 08:00 Room Air* 0 21 Intake/Output Intake and Output 06/10/24 07:00 Intake Total 2900 ml Balance 2900 ml Intake Oral 2900 ml # Voids 8 # Bowel Movements 8 General Appearance: Alert, Oriented X3, Cooperative HEENT: Atraumatic Cardiovascular: Regular rate, Normal S1, Normal S2 Abdomen: Normal bowel sounds Medications Current Medications Medications Dose Ordered Sig/Barbie Route Start Time Stop Time Status Last Admin Dose Admin Sodium Chloride 10 ml Q8HR IV 06/02/24 06:00 06/10/24 14:00 10 ML Acetaminophen/ Hydrocodone Bitart 1 tab Q4HP PRN PO 06/02/24 03:15 06/09/24 20:21 1 TAB Ondansetron HCl 4 mg Q4HP PRN IV 06/02/24 03:15 Docusate Sodium 100 mg BIDPRN PRN PO 06/02/24 03:15 Acetaminophen 650 mg Q6HP PRN PO 06/02/24 03:15 06/06/24 10:21 650 MG Nitroglycerin 0.4 mg Q5MINP PRN SL 06/02/24 04:45 Morphine Sulfate 2 mg Q30M PRN IV 06/02/24 04:45 Famotidine 20 mg Q12HR IV 06/02/24 10:00 06/10/24 09:25 20 MG Multivitamins/ Minerals 1 tab DAILY PO 06/02/24 10:00 06/10/24 09:25 1 TAB Enoxaparin Sodium 40 mg DAILY SC 06/02/24 10:00 06/10/24 09:25 40 MG Trazodone HCl 150 mg HS PO 06/02/24 22:00 06/09/24 22:01 150 MG Insulin Glargine 25 units HS SC 06/03/24 22:00 06/09/24 22:00 25 UNITS Gabapentin 800 mg DAILY PO 06/07/24 10:00 06/10/24 09:25 800 MG Diagnostic Test (Pha) 1 strip IQ4HR 06/09/24 18:00 06/10/24 16:00 1 STRIP Insulin Human Regular IQ4HR SC 06/09/24 18:00 06/10/24 16:00 20 UNITS Dextrose 50 ml UD PRN IV 06/09/24 18:00 Laboratory Results Laboratory Tests 06/03/24 05:39 06/07/24 19:29 Urinalysis Test 06/02/24 03:05 Urine Color Light-yellow (Yellow) Urine Clarity Turbid (Clear) H Urine pH 7.0 (5.0-9.0) Urine Specific [place] 1.015 (1.001-1.035) Urine Protein Negative (Negative) Urine Ketones Negative (Negative) Urine Blood Negative /uL (Negative) Urine Nitrite Negative (Negative) Urine Bilirubin Negative (Negative) Urine Urobilinogen Normal mg/dL (Negative) Urine Leukocyte Esterase Negative /uL (Negative) Urine RBC 25 /hpf (0 - 4) Urine Microscopic WBC 9 /HPF (0-5) H Urine Squamous Epithelial Cells Few /hpf (<5) Urine Bacteria None seen /hpf (None Seen) Urine Glucose 1+ mg/dL (Normal) H Urine Test Negative (Negative) Microbiology Microbiology Date/Time Source Procedure Growth Status 06/02/24 14:40 Stool Clostridium difficile Toxin Assay - Final Complete Assessment/Plan Assessment/Plan 44 yr old female with a known history of alcoholic liver disease, anemia, initially presented to the hospital with a bilateral lower extremity swelling found to have 1. Acute CHF exacerbation unspecified 2. Bilateral lower extremity swelling 3. Alcoholic liver disease 4. Hyperglycemia in the setting of diabetes mellitus type 2 insulin-dependent -continue insulin Lantus, moderate dose sliding scale, continue IV diuretics Discharge plan to recuperative care as patient is homeless pending placement discussed with pt and nursing Plan discussed with: Patient My Orders Orders - JEREMIAH YUSUF DO Procedure Category Date Status Time * Dealer Account Manager CONS 06/10/24 Transmitted Consult 10:43 Date of Service: Jun 10, 2024 Billing Provider: JEREMIAH YUSUF DO Common Visit Codes: [id number] INP/OBS CARE(HIGH) JEREMIAH YUSUF DO Jun 10, 2024 20:01
[2024-06-11] VITALS (8 sets, daily range): BP systolic 99–131; BP diastolic 62–77; PULSE 69–103; RESP 17–20; TEMP 97.9–98.7; O2SAT 96–99
--- NOTE | 2024-06-11 13:43 | DVHINCON2 ---
Date Seen: Jun 11, 2024 Reason for Consultation Bilateral foot pain History of Present Illness Patient is a 44-year-old female with multiple past medical history including anemia, liver disease, EtOH, and portal hypertension presented to [facility] ED with complaint of generalized weakness and bilateral lower extremity swelling. Patient reports she has been unable to ambulate without a walker or w ith assistance. Patient was seen and evaluated in the ED, laboratory data shows WBC 3.7, hemoglobin 9.0, hematocrit 25.6, platelets 289, sodium 141, potassium 3.4, BUN 7, creatinine 0.42, GFR 125, glucose 145, AST 47, ALT 55, lipase 11, albumin 2.6, BNP 72.75, troponin 3, calcium 8.0, blood pressure 99/65, heart rate 80, temperature 98.2 F, O2 saturation 99% on room air. Lower extremity ultrasound results pending. Please see medication orders section in the computer. On my assessment, patient denies chest pain, no headache, no dizziness, no diaphoresis, no shortness of breath, no nausea, no vomiting, no fever, no chills. Patient was admitted for further evaluation and medical management. Past Medical History See H&P Past Surgical History See H&P Family History: Diabetes mellitus G8 MOTHER, Onset:Unknown G8 FATHER, Onset:Unknown FH: cancer G8 MOTHER, Onset:Unknown G8 FATHER, Onset:Unknown Allergies: Coded Allergies: NO KNOWN ALLERGIES (Unverified , 03/06/18) Home Meds Active Scripts Metoclopramide Hcl (Reglan) 5 Mg Tab, 5 MG PO BIDP PRN, #30 TAB 0 Refills Prov:LIN MAJANO MD 06/08/24 Ciprofloxacin Hcl (Cipro) 500 Mg Tab, 1 TAB PO BID, #10 TAB Prov:SHANON MCINTOSH MD 10/07/19 Phenylephrine-Shark Liver Oil- (Hemorrhoidal Suppositorie 0.25-3-85.5 %) 1 Sup Sup, 1 SUP NH DAILY, #20 SUPP Prov:SHANON MCINTOSH MD 10/07/19 Hydrocodone-Acetaminophen ([place] 5/325MG) 1 Tab Tb, 1 TAB PO TID PRN, #21 TAB Prov:SHANON MCINTOSH MD 07/25/19 Sucralfate (Carafate) 1 Gm/10 Ml Mary, 10 ML PO BID, #120 ML 1 Refill Prov:SHANON MCINTOSH MD 07/24/19 Ferrous Sulfate (Iron) 325 Mg Tab, 325 MG PO MWF, #20 TAB Prov:SHANON MCINTOSH MD 07/24/19 Pantoprazole Sodium Sesquihydr (Protonix) 40 Mg Tab, 40 MG PO DAILY, #30 TAB Prov:SHANON MCINTOSH MD 07/24/19 Reported Medications Gabapentin (Gabapentin) 600 Mg Tab, 800 MG PO DAILY for 30 Days, MG 06/06/24 Gabapentin (Once-Daily) (Gabapentin) 300 Mg Tab, 300 MG PO, TAB 06/02/24 Trazodone HCl (Trazodone Hydrochorlide) 150 Mg Tab, 150 MG PO, TAB 06/02/24 Insulin Glargine (Lantus) 100 Unit/Ml Inj, 100 UNIT SC, INJ 06/02/24 Zinc (Zinc) 100 Mg Tab, 100 MG PO, TAB 06/02/24 Vital Signs Vital Signs Date Time Temp Pulse Resp B/P (MAP) Pulse Ox O2 Delivery O2 Flow Rate FiO2 06/11/24 13:00 98.1 76 20 102/70 (81) 99 98.1 06/11/24 08:00 Room Air* 0 21 Physical Exam DERMATOLOGIC EXAM: - Nails 1-5 of the bilateral foot are thickened, discolored, dystrophic, and tender to palpate with subungual debris - No open lesions or wounds noted bilaterally - No hyperkeratotic lesions noted bilaterally. - Hair loss noted to bilateral feet - Skin is shiny and thin bilateral feet VASCULAR EXAM: - DP and PT pulses are palpable bilaterally. - MAORI PHYSIOTHERAPIST is brisk to all digits. - Feet are cool to touch compared to lower legs bilaterally. - 1+ edema noted to the leg, foot, and ankle bilaterally. NEUROLOGIC EXAM: - Normal light touch sensation to the superficial peroneal, deep peroneal, sural , saphenous, and tibial nerve branches. - Protective sensation is diminished as tested with a 5.07 10g [place] Monofilament bilaterally. - Vibratory sensation absent to medial 1st MPJ bilaterally MUSCULOSKELETAL EXAM: - No gross deformities - Muscle strength is 5/5 and active motion is pain-free and symmetrical bilaterally - No pain or crepitation with passive range of motion bilaterally to all major pedal joints Labs/Diagnostic Data Labs Test 06/11/24 08:24 06/07/24 19:29 06/03/24 10:20 06/03/24 05:39 Range/Units POC Glucose 192 H 70-106 mg/dl Sodium Level 134 #L 136-145 mmol/L Potassium Level 4.0 3.5-5.1 mmol/L Chloride Level 101 98-107 mmol/L Carbon Dioxide Level 27 20-31 mmol/L Anion Gap 6 5-15 Blood Urea Nitrogen 8 L 9-23 mg/dL Creatinine 0.60 0.550-1.02 mg/dL Glomerular Filtration Rate Calc 115 >90 mL/min BUN/Creatinine Ratio 13.3 10.0-20.0 Serum Glucose 253 H 74-106 mg/dL Calcium Level 9.3 8.7-10.4 mg/dL Total Bilirubin 0.2 0.2-1.0 mg/dL Aspartate Amino Transferase (AST) 94 H 13-40 U/L Alanine Aminotransferase (ALT) 60 H 7-40 U/L Alkaline Phosphatase 758 H 46-116 U/L Total Protein 5.9 5.7-8.2 g/dL Albumin 3.2 3.2-4.8 g/dL White Blood Count 3.0 L 4.4-10.8 10^3/uL Red Blood Count 2.52 L 4.0-5.20 10^6/uL Hemoglobin 8.2 L 12.2-16.2 g/dL Hematocrit 24.1 L 36.0-46.0 % Mean Corpuscular Volume 95.5 80.0-100.0 fL Mean Corpuscular Hemoglobin 32.6 H 28.0-32.0 pg Mean Corpuscular Hemoglobin Concent 34.1 32.0-36.0 g/dL Red Cell Distribution Width 18.4 H 11.8-14.3 % Platelet Count 238 140-450 10^3/uL Mean Platelet Volume 7.2 6.9-10.8 fL Neutrophils (%) (Auto) 44.6 37.0-80.0 % Lymphocytes (%) (Auto) 38.3 10.0-50.0 % Monocytes (%) (Auto) 14.1 H 0.0-12.0 % Eosinophils (%) (Auto) 2.2 0.0-7.0 % Basophils (%) (Auto) 0.8 0.0-2.0 % Neutrophils # (Auto) 1.3 L 1.6-8.6 10 ^3/uL Lymphocytes # (Auto) 1.1 0.4-5.4 10 ^3/uL Monocytes # (Auto) 0.4 0-1.3 10 ^3/uL Eosinophils # (Auto) 0.1 0-0.8 10 ^3/uL Basophils # (Auto) 0 0-0.2 10 ^3/uL Nucleated Red Blood Cells 0.1 % Test 06/02/24 03:05 06/02/24 01:33 Range/Units Urine Color Light-yellow Yellow Urine Clarity Turbid H Clear Urine pH 7.0 5.0-9.0 Urine Specific [place] 1.015 1.001-1.035 Urine Protein Negative Negative Urine Ketones Negative Negative Urine Blood Negative Negative /uL Urine Nitrite Negative Negative Urine Bilirubin Negative Negative Urine Urobilinogen Normal Negative mg/dL Urine Leukocyte Esterase Negative Negative /uL Urine RBC 25 0 - 4 /hpf Urine Microscopic WBC 9 H 0-5 /HPF Urine Squamous Epithelial Cells Few <5 /hpf Urine Bacteria None seen None Seen /hpf Urine Glucose 1+ H Normal mg/dL Urine Test Negative Negative Hemoglobin A1c 8.4 H <5.7 % A1C Gamma Glutamyl Transpeptidase 372 H <38 U/L Troponin I High Sensitivity < 3 L </=34 ng/L B-Type Natriuretic Peptide 72.75 0-100 pg/mL Lipase 11 L 12-53 U/L Microbiology Date/Time Source Procedure Growth Status 06/02/24 14:40 Stool Clostridium difficile Toxin Assay - Final Complete Problems(with codes): (1) Alcohol withdrawal (2) Anemia (3) Weakness (4) Peripheral edema (5) Elevated alkaline phosphatase level (6) Generalized weakness (7) Electrolyte imbalance (8) Anemia, unspecified (9) Bilateral lower extremity edema (10) Liver disease (11) Family history of diabetes mellitus (12) FH: cancer Plan/Recommendation ASSESSMENT: Patient is a 44-year-old seen on the floor for bilateral foot pain PLAN: - The patients chart was reviewed, clinical findings were discussed with the patient, the etiologies of the conditions were discussed in detail, and a treatment plan was agreed to at this time, with both oral and written instructions provided. - After verbal consent was obtained, all nails of the bilateral foot (>5 nails in total) were trimmed in length and debrided of thickness with a nail nipper and rotary bur. - Educated the patient on diabetes, proper foot care guidelines for diabetics, and how good blood glucose control can help prevent lower extremity complications from diabetes. - Discussed the importance of checking their feet for blisters, cuts or sores, redness, or swelling. Tell your doctor right away if you find something wrong - Recommend wearing clean, soft socks that fit you. - Keep your feet warm and dry. - Never walk barefoot, indoors or outdoors. - Recommend using AmLactin 12% lotion twice per day for dry skin All questions were answered and concerns addressed to the patient's satisfaction. The patient was given the phone number to the clinic and was told how to make contact with the clinic should any concerns or questions arise. Patient understands that if any questions or concerns arise prior to the next appointment, we should be contacted immediately. FOLLOW-UP: Patient will follow up with me in 2-3 months for continued nail care Plan discussed with: Patient Date of Service: Jun 11, 2024 Billing Provider: RENAN CRUZ DPM Common Visit Codes: CONSULT ONLY Consultation Codes: [id number] CONSULT <80MIN RENAN CRUZ DPM Jun 11, 2024 13:43
[2024-06-12] VITALS (7 sets, daily range): BP systolic 103–126; BP diastolic 58–78; PULSE 71–123; RESP 17–20; TEMP 98–98.8; O2SAT 97–100
[2024-06-12] MEDS ORDERED: BLOO1KIT60 XX (15:00)
[2024-06-12] MEDS ORDERED: GABA-1251 PO (15:00)
[2024-06-12] MEDS ORDERED: PANT40TA2 PO (15:00)
[2024-06-12] MEDS ORDERED: INSU1INJ19 SC (15:00)
[2024-06-12] MEDS ORDERED: LANC-347 XX (15:00)
--- NOTE | 2024-06-12 15:56 | DVHPN2 ---
Subjective Patient denies any symptoms Reviewed: Care Plan Changes from previous H/P or p: No Changes General: Per HPI Eyes: No Pain, No Vision change, No Conjunctivae inflammation, No Eyelid inflammation, No Other, No Redness ENT: No Ear pain, No Ear discharge, No Nose pain, No Nose discharge, No Nose congestion, No Mouth pain, No Mouth swelling, No Throat pain, No Throat swelling, No Other Cardiovascular: No Chest Pain, No Palpitations, No Orthopnea, No Paroxysmal Noc. Dyspnea, No Edema, No Lt Headedness, No Other Respiratory: No Cough, No Dry, No Shortness of breath, No SOB with excertion, No Wheezing, No Hemoptysis, No Pleuritic Pain, No Sputum, No Other Gastrointestinal: No Nausea, No Vomiting, No Abdominal Pain, No Diarrhea, No Constipation, No Melena, No Hematochezia, No Other Genitourinary: No Dysuria, No Frequency, No Incontinence, No Hematuria, No Retention, No Other Musculoskeletal: other (Bilateral lower extremity swelling and weakness.); No neck pain, No shoulder pain, No arm pain, No back pain, No hand pain, No leg pain, No foot pain Skin: No Rash, No Lesions, No Jaundice, No Bruising, No Other Objective Vitals Vital Signs Date Time Temp Pulse Resp B/P (MAP) Pulse Ox O2 Delivery O2 Flow Rate FiO2 06/12/24 13:00 98.8 123 20 123/73 (90) 97 98.8 06/12/24 08:00 Room Air* 0 21 Intake/Output Intake and Output 06/12/24 07:00 Intake Total 2520 ml Balance 2520 ml Intake Oral 2520 ml # Voids 11 # Bowel Movements 1 General Appearance: Alert, Oriented X3, Cooperative HEENT: Atraumatic Lungs: Clear to auscultation, Normal air movement Cardiovascular: Regular rate, Normal S1, Normal S2 Abdomen: Normal bowel sounds Psych/Mental Status: Mental status NL, Mood NL Medications Current Medications Medications Dose Ordered Sig/Barbie Route Start Time Stop Time Status Last Admin Dose Admin Sodium Chloride 10 ml Q8HR IV 06/02/24 06:00 06/12/24 06:19 10 ML Ondansetron HCl 4 mg Q4HP PRN IV 06/02/24 03:15 Docusate Sodium 100 mg BIDPRN PRN PO 06/02/24 03:15 Acetaminophen 650 mg Q6HP PRN PO 06/02/24 03:15 06/06/24 10:21 650 MG Nitroglycerin 0.4 mg Q5MINP PRN SL 06/02/24 04:45 Famotidine 20 mg Q12HR IV 06/02/24 10:00 06/12/24 08:40 20 MG Multivitamins/ Minerals 1 tab DAILY PO 06/02/24 10:00 06/12/24 08:23 1 TAB Enoxaparin Sodium 40 mg DAILY SC 06/02/24 10:00 06/12/24 08:25 40 MG Trazodone HCl 150 mg HS PO 06/02/24 22:00 06/11/24 22:46 150 MG Insulin Glargine 25 units HS SC 06/03/24 22:00 06/11/24 22:41 25 UNITS Gabapentin 800 mg DAILY PO 06/07/24 10:00 06/12/24 08:24 800 MG Diagnostic Test (Pha) 1 strip IQ4HR 06/09/24 18:00 06/12/24 11:39 1 STRIP Insulin Human Regular IQ4HR SC 06/09/24 18:00 06/12/24 11:40 12 UNITS Dextrose 50 ml UD PRN IV 06/09/24 18:00 Laboratory Results Laboratory Tests 06/03/24 05:39 06/07/24 19:29 Urinalysis Test 06/02/24 03:05 Urine Color Light-yellow (Yellow) Urine Clarity Turbid (Clear) H Urine pH 7.0 (5.0-9.0) Urine Specific [place] 1.015 (1.001-1.035) Urine Protein Negative (Negative) Urine Ketones Negative (Negative) Urine Blood Negative /uL (Negative) Urine Nitrite Negative (Negative) Urine Bilirubin Negative (Negative) Urine Urobilinogen Normal mg/dL (Negative) Urine Leukocyte Esterase Negative /uL (Negative) Urine RBC 25 /hpf (0 - 4) Urine Microscopic WBC 9 /HPF (0-5) H Urine Squamous Epithelial Cells Few /hpf (<5) Urine Bacteria None seen /hpf (None Seen) Urine Glucose 1+ mg/dL (Normal) H Urine Test Negative (Negative) Microbiology Microbiology Date/Time Source Procedure Growth Status 06/02/24 14:40 Stool Clostridium difficile Toxin Assay - Final Complete Labs and/or images reviewed: Labs reviewed by me, Image(s) reviewed by me Assessment/Plan Assessment/Plan Impression: Acute CHF exacerbation, likely diastolic, resolved Bilateral lower extremity swelling , resolved chronic Alcoholic liver disease Hypoglycemia and hyperglycemia in the setting of diabetes mellitus type 2 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 Patient will be discharged today with medications per medication reconciliation. This was discussed with the patient who is agreeable. All questions answered. Plan discussed with: Patient, Other (RN) My Orders Orders - MOISE MANE NP Procedure Category Date Status Time Discharge DISCHARGE 06/12/24 Transmitted 14:56 Date of Service: Jun 12, 2024 Billing Provider: MOISE MANE NP Common Visit Codes: [id number] INP/OBS CARE(HIGH) MOISE MANE NP Jun 12, 2024 15:56
[2024-06-13 01:00] VITALS: BP 95/59; PULSE 96; RESP 18; TEMP 97.5; O2SAT 98
[2024-06-13 05:00] VITALS: BP 105/72; PULSE 79; RESP 17; TEMP 97.5; O2SAT 99
[2024-06-13] MEDS: DEXTROSE (50%) 50ML SYRG IV PRN (07:36)
[2024-06-13 08:00] VITALS: PULSE 94; RESP 18; O2SAT 97
[2024-06-13 08:41] VITALS: BP 105/62; PULSE 94; RESP 18; TEMP 36.4; O2SAT 97
[2024-06-13 09:00] VITALS: BP 105/62; PULSE 93; RESP 20; TEMP 98.6; O2SAT 97
[2024-06-13] MEDS ORDERED: DEXTROSE (50%) 50ML SYRG IV PRN (09:30)
[2024-06-13] MEDS ORDERED: InsuLIN REG 1unit/0.01ml Soln (100units/ml) SC SCH (11:30)
[2024-06-13] MEDS ORDERED: ACCU-CHEK COMFORT CURVE STRIP VI SCH (11:30)
[2024-06-13] MEDS ORDERED: METO5TAB67 PO (11:46)
--- NOTE | 2024-06-13 12:45 | DVHPN2 ---
Subjective Patient denies any symptoms Reviewed: Care Plan Changes from previous H/P or p: No Changes General: Per HPI Eyes: No Pain, No Vision change, No Conjunctivae inflammation, No Eyelid inflammation, No Other, No Redness ENT: No Ear pain, No Ear discharge, No Nose pain, No Nose discharge, No Nose congestion, No Mouth pain, No Mouth swelling, No Throat pain, No Throat swelling, No Other Cardiovascular: No Chest Pain, No Palpitations, No Orthopnea, No Paroxysmal Noc. Dyspnea, No Edema, No Lt Headedness, No Other Respiratory: No Cough, No Dry, No Shortness of breath, No SOB with excertion, No Wheezing, No Hemoptysis, No Pleuritic Pain, No Sputum, No Other Gastrointestinal: No Nausea, No Vomiting, No Abdominal Pain, No Diarrhea, No Constipation, No Melena, No Hematochezia, No Other Genitourinary: No Dysuria, No Frequency, No Incontinence, No Hematuria, No Retention, No Other Musculoskeletal: other (Bilateral lower extremity swelling and weakness.); No neck pain, No shoulder pain, No arm pain, No back pain, No hand pain, No leg pain, No foot pain Skin: No Rash, No Lesions, No Jaundice, No Bruising, No Other Objective Vitals Vital Signs Date Time Temp Pulse Resp B/P (MAP) Pulse Ox O2 Delivery O2 Flow Rate FiO2 06/13/24 09:00 98.6 93 20 105/62 (76) 97 98.6 06/13/24 08:00 Room Air* 0 21 Intake/Output Intake and Output 06/13/24 07:00 Intake Total 2950 ml Balance 2950 ml Intake Oral 2950 ml # Voids 7 # Bowel Movements 1 General Appearance: Alert, Oriented X3, Cooperative HEENT: Atraumatic Lungs: Clear to auscultation, Normal air movement Cardiovascular: Regular rate, Normal S1, Normal S2 Abdomen: Normal bowel sounds Psych/Mental Status: Mental status NL, Mood NL Laboratory Results Laboratory Tests 06/03/24 05:39 06/07/24 19:29 Urinalysis Test 06/02/24 03:05 Urine Color Light-yellow (Yellow) Urine Clarity Turbid (Clear) H Urine pH 7.0 (5.0-9.0) Urine Specific [place] 1.015 (1.001-1.035) Urine Protein Negative (Negative) Urine Ketones Negative (Negative) Urine Blood Negative /uL (Negative) Urine Nitrite Negative (Negative) Urine Bilirubin Negative (Negative) Urine Urobilinogen Normal mg/dL (Negative) Urine Leukocyte Esterase Negative /uL (Negative) Urine RBC 25 /hpf (0 - 4) Urine Microscopic WBC 9 /HPF (0-5) H Urine Squamous Epithelial Cells Few /hpf (<5) Urine Bacteria None seen /hpf (None Seen) Urine Glucose 1+ mg/dL (Normal) H Urine Test Negative (Negative) Microbiology Microbiology Date/Time Source Procedure Growth Status 06/02/24 14:40 Stool Clostridium difficile Toxin Assay - Final Complete Assessment/Plan Assessment/Plan Impression: Acute CHF exacerbation, likely diastolic, resolved Bilateral lower extremity swelling , resolved chronic Alcoholic liver disease Hypoglycemia and hyperglycemia in the setting of diabetes mellitus type 2 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 Plan discussed with: Patient, Other (RN) My Orders Orders - MOISE MANE NP Procedure Category Date Status Time Discharge DISCHARGE 06/12/24 Transmitted 14:56 Date of Service: Jun 13, 2024 Billing Provider: MOISE MANE NP Common Visit Codes: [id number] INP/OBS CARE(MOD) MOISE MANE NP Jun 13, 2024 12:45
== END 2024-06-13 11:00 | disposition home or self-care (01) | DRG 194 ==
LOC: EDBD 00:44 → ER 00:44 → OVERFLOW 04:43 → TELE-WESTW 06:40
PROVIDERS: ADMIT Nurse Practitioner Acute Care; ATTEND Nurse Practitioner Acute Care
DX: I50.33 Acute on chronic diastolic (congestive) heart failure (principal); E11.00 Type 2 diabetes mellitus with hyperosmolarity without nonketotic hyperglycemic-hyperosmolar coma (NKHHC); E43 Unspecified severe protein-calorie malnutrition; E11.40 Type 2 diabetes mellitus with diabetic neuropathy, unspecified; E87.1 Hypo-osmolality and hyponatremia; K70.9 Alcoholic liver disease, unspecified; D64.9 Anemia, unspecified; E88.09 Other disorders of plasma-protein metabolism, not elsewhere classified; D72.819 Decreased white blood cell count, unspecified; D72.821 Monocytosis (symptomatic); E87.6 Hypokalemia; K86.1 Other chronic pancreatitis; F17.210 Nicotine dependence, cigarettes, uncomplicated; K21.9 Gastro-esophageal reflux disease without esophagitis; N39.498 Other specified urinary incontinence; Z59.01 Sheltered homelessness; Z79.4 Long term (current) use of insulin; Z79.2 Long term (current) use of antibiotics; Z83.3 Family history of diabetes mellitus; Z91.119 Patient's noncompliance with dietary regimen due to unspecified reason; Z68.23 Body mass index [BMI] 23.0-23.9, adult
CPT/HCPCS: 36415; 74176; 80048; 80053; 81001; 81025; 82962; 82977; 83036; 83690; 83880; 84484; 85025; 86850; 86900; 86901; 87493; 93970; 96365; 96367; 96372; 97110; 97116; 97163; 97530; G0378; J1815; J1885; J3490; P9047